=== PATIENT | female | born 2000 | race Caucasian/White ===

== ENCOUNTER 2018-04-14 14:44 | Emergency (ER) | payer MEDICAID, SELFPAY ==
[2018-04-14 14:45] VITALS: BP 132/87; PULSE 87; RESP 16; TEMP 36.6; O2SAT 98; BMI 24.4
--- NOTE | 2018-04-14 15:16 | ED.VISSUMM ---
- ER Visit Summary Date of Service: 04/14/18 Chief Complaint: Left middle finger laceration History of Present Illness: The patient is a 17 F presenting with laceration to her left middle finger. Patient was cutting a hose with a knife. She slipped and cut her left middle finger. This occurred just prior to arrival. Her tetanus is up-to-date. No other injuries. Physical Examination: Vitals are stable. Patient is afebrile. Alert no acute distress. HEENT exam is unremarkable. Lungs are clear and equal bilaterally. Heart is regular rate and rhythm. Extremities 1 cm lac distal left middle finger pad. Active full range of motion. Normal cap refill Skin is warm and dry. No focal neurologic deficit. Remainder of exam is unremarkable. Emergency Department Course and Treatment: Digital block was performed. Irrigated with saline. 3, 5-0 simple sutures were placed. Patient tolerated this well. Advised wound care instructions. Advised to follow up with primary care physician. Advised return to ED for worsening complaints. Disposition: Discharge home Impression: Left middle finger laceration, laceration repair This note was generated with [employer] dictation software. It may contain incorrect words, spelling, and punctuation that were not noted in review of the chart prior to signing ED Disposition - Plan for ED Patient: Chief Complaint: Laceration Instructions: ED Laceration All Referrals: Dustin Bryan MD [Primary Care Provider] -
--- NOTE | 2018-04-14 15:24 | ED.DEP ---
ED Disposition - Plan for ED Patient: Chief Complaint: Laceration Instructions: ED Laceration All Referrals: Dustin Bryan MD [Primary Care Provider] -
[2018-04-14 16:19] VITALS: RESP 18
--- OUTSIDE RECORDS SUMMARY | 2018-07-18 11:51 | XMS RPT_ITS ---
:2000 Author Organization OHIP Care Team Providers Name Role Phone EMMA PRASAD, DR. MENDOZA Attending Unavailable PARKER PRASAD, CHRISTOPHER Primary Care Unavailable Hossein Babin Attending Unavailable PROVIDER, UNKNOWN Referring Unavailable Bursley, Christopher Primary Care Unavailable PROVIDER, UNKNOWN Referring Unavailable Bursley, Christopher Primary Care Unavailable Enrique Whitaker Attending Unavailable Janie Astorga Attending Unavailable PROVIDER, UNKNOWN Referring Unavailable Bursley, Christopher Primary Care Unavailable PROVIDER, UNKNOWN Referring Unavailable Bursley, Christopher Primary Care Unavailable PROVIDER, UNKNOWN Attending Unavailable Hima Ramírez Attending Unavailable PROVIDER, UNKNOWN Referring Unavailable Bursley, Christopher Primary Care Unavailable PODWEN PALOMO (HEAT CURER) Attending Unavailable WEN VASQUEZ (SUSAN) Referring Unavailable PATRICA STEINBERG (SUSAN) Attending Unavailable JUSTIN SOLO Attending Unavailable JUSTIN SOLO Referring Unavailable Bursley, Dustin Primary Care Unavailable Latonya Zepeda Attending Unavailable JUSTIN SOLO Attending Unavailable JUSTIN SOLO Referring Unavailable JUSTIN SOLO Attending Unavailable JUSTIN SOLO Referring Unavailable BURSLEY, CHRISTOPHER Primary Care Unavailable PROBLEMS PROBLEMS DATE TYPE CONDITION / CODE ATTENDING STATUS SOURCE 03/07/2018 Admitting Chest pain, [place], Hima [facility] Diagnosis unspecified / System R07.9(ICD-10) Repository 03/07/2018 Admitting Nicotine [place], Hima [facility] Diagnosis dependence, System cigarettes, Repository uncomplicated / F17.210(ICD-10) 03/07/2018 Admitting Acute bronchitis, Darrell, Hima [facility] Diagnosis unspecified / System J20.9(ICD-10) Repository 03/07/2018 Admitting Cardiac arrhythmia, [place], [facility] Diagnosis unspecified / System I49.9(ICD-10) Repository 03/07/2018 Admitting Migraine, unsp, not [place], Hima [facility] Diagnosis intractable, System without status Repository migrainosus / G43.909(ICD-10) 03/07/2018 Admitting Palpitations / Darrell, Hima [facility] Diagnosis R00.2(ICD-10) System Repository 03/07/2018 Admitting Shortness of breath [place], [facility] Diagnosis / R06.02(ICD-10) System Repository 03/07/2018 Admitting Cough / R05(ICD-10) Darrell Hima [facility] Diagnosis System Repository 12/09/2017 Admitting Abnormal uterine Unknown [facility] Diagnosis and vaginal System bleeding, Repository unspecified / N93.9(ICD-10) 10/04/2017 Active Encounter for Active [place] screening for Clinic Main infections with a [place] predominantly Repository sexual mode of transmission / Z11.3(ICD-10) 07/10/2017 Admitting Epigastric pain / [place], Hossein [facility] Diagnosis R10.13(ICD-10) System Repository 07/10/2017 Admitting Dehydration / Jeromin, Hossein Active [facility] Diagnosis E86.0(ICD-10) System Repository 07/10/2017 Admitting Bacteriuria / Jeromin, Hossein Active [facility] Diagnosis R82.71(ICD-10) System Repository 07/10/2017 Admitting Generalized Jeromin, Hossein [facility] Diagnosis abdominal pain / System R10.84(ICD-10) Repository PROCEDURES PROCEDURES No Procedure Records FoundRESULTS RESULTS EMERGENCY DEPARTMENT Observed: 04/14/2018 Status: F Source: [place] SUMMARY 3:45 PM [facility] [place] REPOSITORY [facility] Medical Records Department [address] [place] [address] Emergency Department Summary 04/14/18 1516 MR#: [id number] Acct: [id number] Name: RENEE GREENE Rep #: [id number] : 2000 17 From: Latonya Zepeda MD PCP: Dustin Bryan MD Status: PRE ER - ER Visit Summary Date of Service: 04/14/18 Chief Complaint: Left middle finger laceration History of Present Illness: The patient is a 17 F presenting with laceration to her left middle finger. Patient was cutting a hose with a knife. She slipped and cut her left middle finger. This occurred just prior to arrival. Her tetanus is up-to-date. No other injuries. Physical Examination: Vitals are stable. Patient is afebrile. Alert no acute distress. HEENT exam is unremarkable. Lungs are clear and equal bilaterally. Heart is regular rate and rhythm. Extremities 1 cm lac distal left middle finger pad. Active full range of motion. Normal cap refill Skin is warm and dry. No focal neurologic deficit. Remainder of exam is unremarkable. Emergency Department Course and Treatment: Digital block was performed. Irrigated with saline. 3, 5-0 simple sutures were placed. Patient tolerated this well. Advised wound care instructions. Advised to follow up with primary care physician. Advised return to ED for worsening complaints. Disposition: Discharge home Impression: Left middle finger laceration, laceration repair This note was generated with [employer] dictation software. It may contain incorrect words, spelling, and punctuation that were not noted in review of the chart prior to signing ED Disposition - Plan for ED Patient: Chief Complaint: Laceration Instructions: ED Laceration All Referrals: Dustin Bryan MD [Primary Care Provider] - What to do if you have Problems For any increased pain, shortness of breath, bleeding, nausea or vomiting, chest pain, or any unexpected problems, contact your Primary Care Provider. Call [facility] ([phone]) or report to the closest Emergency Room. Call 911 if necessary. 04/14/18 2173 <Electronically signed by Latonya Zepeda MD> Date Latonya Zepeda MD Cosigner Signature (If Indicated): Date CC: Dustin Bryan MD DISCHARGE INSTRUCTION Observed: 04/14/2018 Status: F Source: [place] 3:24 PM [facility] [place] REPOSITORY [facility] Medical Records Department [address] [place] [address] Discharge Instruction 04/14/18 1524 MR#: [id number] Acct: [id number] Name: RENEE GREENE Rep #: [id number] : 2000 17 From: Latonya Zepeda MD PCP: Dustin Bryan MD Status: PRE ER ED Disposition - Plan for ED Patient: Chief Complaint: Laceration Instructions: ED Laceration All Referrals: Dustin Bryan MD [Primary Care Provider] - What to do if you have Problems For any increased pain, shortness of breath, bleeding, nausea or vomiting, chest pain, or any unexpected problems, contact your Primary Care Provider. Call [facility] ([phone]) or report to the closest Emergency Room. Call 911 if necessary. 04/14/18 1524 <Electronically signed by Latonya Zepeda MD> Date Latonya Zepeda MD Cosigner Signature (If Indicated): Date CC: Dustin Bryan MD PROGRESS Observed: 03/15/2018 Status: COMPLETED Source: [place] 2:01 PM [facility] [place] REPOSITORY O ID: [id number] Author: Justin Solo Service: (none) Author Type: Physician Type: Progress Notes Filed: 03/15/2018 6:17 PM Note Text: PERTINENT CARDIAC HISTORY Palpitations Chest pain ADHERENCE TO GUIDELINES MARYSOL-I or ARB for HF with prior LVEF<40 (NQF 0081) - N/A ASA or Plavix for ASHD (NQF 0067) - N/A Beta joe for ASHD with prior ME or prior LVEF<40 (NQF 0070) - N/A Beta joe for HF with prior LVEF<40 (NQF 0083) - N/A MARYSOL-I or ARB for ASHD with DM or prior LVEF<40 (NQF 0066) - N/A Statin therapy for ASHD or FHL or DM - N/A BMI documented and plan if >25 (NQF 0421) - lifestyle recommendation form Tobacco use screening and referral (NQF 0028) - lifestyle recommendation form Recommendation for whole food, plant based diet - lifestyle recommendation form CLINICAL IMPRESSION/PLAN: Renee Greene has mild postural hypotension and has potential for POTS. She has a problem with intermittent depression and we will avoid beta blockers. When she took beta joe in the past, she describes feeling worse. I suggested that we try low-dose verapamil at 120 milligrams to see if it helps with her symptoms. There is no evidence of ischemia. However, her chest pain may be related to her arrhythmia. I am concerned about the nonsustained ventricular arrhythmia she had. Further monitoring including implantation of loop recorder may be helpful in sorting this out. I've asked her to call me in 2 weeks with an update. I will see her in 6 months or as needed. Written and verbal health teaching given to patient, patient verbalizes understanding and agrees with treatment plan. DIAGNOSIS FOR VISIT: Palpitations Chest pain HISTORY OF PRESENT ILLNESS Renee Greene returns for follow-up of her palpitation and chest pain syndrome. Since her last visit with me, she was evaluated by a general wheat shipper and EP at [facility]. No further recommendations were made or significant findings were uncovered. She was reassured. Despite reassurance, she continues to have some chest discomfort which may or may not be associated with a sensation of palpitations. She reports that she has been drinking a lot of water to keep herself well hydrated and avoid postural hypotension. She's had intermittent lightheadedness, again variably associated with palpitations. She's had no cari syncope. She's had trace edema. She denies orthopnea. Her chest discomfort can last hours at a time. It is occasionally related to palpitations. It is not usually exertional. She's not been engaged in any regular exercise. She denies TIAs, amaurosis and claudication. ALLERGIES: ALLERGIES No Known Allergies CURRENT OUTPATIENT MEDICATIONS: mirtazapine (REMERON) 15 mg tablet Take 15 mg by mouth daily at bedtime. PHYSICAL EXAMINATION: VITAL SIGNS: BP 102/68 Pulse 76 Ht 5' 3.75 (1.62m) Wt 142 lb 1.6 oz (64.5kg) BMI 24.59 kg/(m2). Chest: Clear to auscultation. Trachea is midline. Air entry is equal. Cardiac: Regular rhythm. S1 and S2 are normal. PMI is nondisplaced. There are no murmurs, rubs or gallops. Carotids are brisk without bruits. JVP is less than 10 cm. Abdomen: Soft and nontender. There are no pulsatile masses or bruits. No liver enlargement. Bowel sounds are active. Extremities: No edema. Pulses are intact and symmetrical. Previous monitoring and stress testing was all reviewed with her. There are no significant findings on any of her testing other than occasional atrial and ventricular rhythm with 1 nonsustained run of wide-complex tach, likely ventricular. Electronically Signed: Justin Solo MD March 15, 2018 2:01 PM CC: Christian Bryan MD CNOV Observed: 03/15/2018 Status: COMPLETED Source: [place] 1:15 PM [facility] REPOSITORY Office Visit (CAWSTR) RENEE GREENE ([id number]) 2000 F [facility] Date Time Provider Department 03/15/18 1:15 PM JUSTIN SOLOWSTR During your visit today, we recorded the following information about you: Pulse Blood pressure Weight Height 76/minute 102/68 64.5 kg 1.619 m Justin Solo MD 03/15/2018 6:17 PM Signed PERTINENT CARDIAC HISTORY Palpitations Chest pain ADHERENCE TO GUIDELINES MARYSOL-I or ARB for HF with prior LVEF<40 (NQF 0081) - N/A ASA or Plavix for ASHD (NQF 0067) - N/A Beta joe for ASHD with prior ME or prior LVEF<40 (NQF 0070) - N/A Beta joe for HF with prior LVEF<40 (NQF 0083) - N/A MARYSOL-I or ARB for ASHD with DM or prior LVEF<40 (NQF 0066) - N/A Statin therapy for ASHD or FHL or DM - N/A BMI documented and plan if >25 (NQF 0421) - lifestyle recommendation form Tobacco use screening and referral (NQF 0028) - lifestyle recommendation form Recommendation for whole food, plant based diet - lifestyle recommendation form CLINICAL IMPRESSION/PLAN: Renee Greene has mild postural hypotension and has potential for POTS. She has a problem with intermittent depression and we will avoid beta blockers. When she took beta joe in the past, she describes feeling worse. I suggested that we try low-dose verapamil at 120 milligrams to see if it helps with her symptoms. There is no evidence of ischemia. However, her chest pain may be related to her arrhythmia. I am concerned about the nonsustained ventricular arrhythmia she had. Further monitoring including implantation of loop recorder may be helpful in sorting this out. I've asked her to call me in 2 weeks with an update. I will see her in 6 months or as needed. Written and verbal health teaching given to patient, patient verbalizes understanding and agrees with treatment plan. DIAGNOSIS FOR VISIT: Palpitations Chest pain HISTORY OF PRESENT ILLNESS Renee Greene returns for follow-up of her palpitation and chest pain syndrome. Since her last visit with me, she was evaluated by a general wheat shipper and EP at [facility]. No further recommendations were made or significant findings were uncovered. She was reassured. Despite reassurance, she continues to have some chest discomfort which may or may not be associated with a sensation of palpitations. She reports that she has been drinking a lot of water to keep herself well hydrated and avoid postural hypotension. She's had intermittent lightheadedness, again variably associated with palpitations. She's had no cari syncope. She's had trace edema. She denies orthopnea. Her chest discomfort can last hours at a time. It is occasionally related to palpitations. It is not usually exertional. She's not been engaged in any regular exercise. She denies TIAs, amaurosis and claudication. ALLERGIES: ALLERGIES No Known Allergies CURRENT OUTPATIENT MEDICATIONS: mirtazapine (REMERON) 15 mg tablet Take 15 mg by mouth daily at bedtime. PHYSICAL EXAMINATION: VITAL SIGNS: BP 102/68 Pulse 76 Ht 5' 3.75 (1.62m) Wt 142 lb 1.6 oz (64.5kg) BMI 24.59 kg/(m2). Chest: Clear to auscultation. Trachea is midline. Air entry is equal. Cardiac: Regular rhythm. S1 and S2 are normal. PMI is nondisplaced. There are no murmurs, rubs or gallops. Carotids are brisk without bruits. JVP is less than 10 cm. Abdomen: Soft and nontender. There are no pulsatile masses or bruits. No liver enlargement. Bowel sounds are active. Extremities: No edema. Pulses are intact and symmetrical. Previous monitoring and stress testing was all reviewed with her. There are no significant findings on any of her testing other than occasional atrial and ventricular rhythm with 1 nonsustained run of wide-complex tach, likely ventricular. Electronically Signed: Justin Solo MD March 15, 2018 2:01 PM CC: MD Justin Luque MD 03/15/2018 2:01 PM Signed LIFESTYLE CHANGE A healthy lifestyle is the most important component of your overall treatment plan. Please give serious thought to the following areas and commit to making care home changes. EAT A WHOLE FOOD, PLANT BASED DIET The nutrition your body gets is more important than the medicine you take. What matters most is the overall way you eat. We encourage you to minimize the use of animal products (which include dairy and all meats except fatty fish) and use whole, unprocessed plant foods to provide your protein, vitamins and other nutrients. We have a lot of information to share with you on this topic. This is not a diet. It is a way of life that you will keep with you. EXERCISE REGULARLY It is not important to spend hours in the gym, lifting weights and perspiring heavily. A total of 2-3 hours per week of aerobic (causing you to be moderately short of breath) exercise is sufficient to improve your health. Talk to us before you begin a new exercise program, if you have heart disease or experience shortness of breath or chest pain. REDUCE STRESS Chronic emotional and physical stress leads to disease. Ways of reducing stress include meditation, visualization, prayer, yoga and other forms of relaxation therapy. Consistency is the ortega. Find a technique that works for you and do it every day. CULTIVATE RELATIONSHIPS Loneliness and isolation have a major negative impact on health. Seek out others who can love, care for and nurture you. Avoid hurtful relationships. MAINTAIN IDEAL BODY WEIGHT The best way to do this is to do all the things above. Our bodies naturally find the right weight if we keep moving and feed ourselves the right food. If your BMI is greater than 25, we strongly recommend a referral to a weight management program. Please speak to us or your family physician about available programs. AVOID NICOTINE IN ALL FORMS This includes all tobacco products, whether chewed, smoked, vaped, or rubbed on the skin. Smoking cessation programs, which can make use of tobacco substitutes, medications to suppress cravings and behavior management, are available. Please contact your family physician about programs in your area. Referring Provider: JUSTIN SOLO [[id number]] Allergies As of Date: 03/15/2018 (No Known Allergies) Date Reviewed: 03/15/2018 Reviewed by: Monae Negrete MA - Fully Assessed Reason for Visit: Established Patient [175] Primary Visit Diagnosis:Chest pain, unspecified type [R07.9] Other Visit Diagnosis:Palpitations [R00.2] Order(s):verapamil ER (VERELAN) 120 mg 24 hr capsuleTake 1 capsule by mouth once daily.Disp: 30 capsuleRfl: 6 Prescriptions as of 03/15/2018 Sig: VERAPAMIL ER 120 MG 24 HR CAP* Take 1 capsule by mouth once * MIRTAZAPINE 15 MG TABLET Take 15 mg by mouth daily at * Problem List As Of Date 03/15/2018 Noted Resolved High risk teen [O09.899] INVALID FOR* Dysthymia [F34.1] INVALID FOR* History of congenital heart defect [Z87.74] INVALID FOR* More... Supervision of high risk due to socia*INVALID FOR* More... Uterine size-date discrepancy [O26.849] INVALID FOR* More... Other instructions from your clinician: LIFESTYLE CHANGE A healthy lifestyle is the most important component of your overall treatment plan. Please give serious thought to the following areas and commit to making care home changes. EAT A WHOLE FOOD, PLANT BASED DIET The nutrition your body gets is more important than the medicine you take. What matters most is the overall way you eat. We encourage you to minimize the use of animal products (which include dairy and all meats except fatty fish) and use whole, unprocessed plant foods to provide your protein, vitamins and other nutrients. We have a lot of information to share with you on this topic. This is not a diet. It is a way of life that you will keep with you. EXERCISE REGULARLY It is not important to spend hours in the gym, lifting weights and perspiring heavily. A total of 2-3 hours per week of aerobic (causing you to be moderately short of breath) exercise is sufficient to improve your health. Talk to us before you begin a new exercise program, if you have heart disease or experience shortness of breath or chest pain. REDUCE STRESS Chronic emotional and physical stress leads to disease. Ways of reducing stress include meditation, visualization, prayer, yoga and other forms of relaxation therapy. Consistency is the ortega. Find a technique that works for you and do it every day. CULTIVATE RELATIONSHIPS Loneliness and isolation have a major negative impact on health. Seek out others who can love, care for and nurture you. Avoid hurtful relationships. MAINTAIN IDEAL BODY WEIGHT The best way to do this is to do all the things above. Our bodies naturally find the right weight if we keep moving and feed ourselves the right food. If your BMI is greater than 25, we strongly recommend a referral to a weight management program. Please speak to us or your family physician about available programs. AVOID NICOTINE IN ALL FORMS This includes all tobacco products, whether chewed, smoked, vaped, or rubbed on the skin. Smoking cessation programs, which can make use of tobacco substitutes, medications to suppress cravings and behavior management, are available. Please contact your family physician about programs in your area. Prescriptions ordered this encounter Disp Refills Start End VERAPAMIL ER 120 MG 24 HR CAPSULE,EX* 30 c* 6 03/15/2018 Route: ORAL Sig: Take 1 capsule by mouth once daily. Letter Text Renee Greene March 15, [address] [facility] Sonam Koenig [place], [place] [address] 03/15/2018 CC# [id number] Renee Greene [address] [facility] [address] To whom it may concern: Please excuse Renee Greene from work today as she was seen in our office. Thank you. Sincerely, Cardiology Encounter Status:Closed by JUSTIN SOLO MD on 03/15/18 CNCO Observed: 03/15/2018 Status: COMPLETED Source: [place] 12:00 AM [facility] REPOSITORY Letter Text Renee Greene March 15, 2018 [place] [address] [place] [place] [address] 03/15/2018 [facility]# [id number] Renee Greene [address] [facility] [address] Dear Ms. Greene: Please excuse Renee Greene from work today as she was seen in our office. Sincerely, Cardiology CR CHEST PA/LAT Observed: 03/07/2018 Status: F Source: [place] 1:33 AM SYSTEM REPOSITORY Patient Name: RENEE GREENE Diagnostic Radiology Exam Date/Time 03/07/2018 01:29:18 EST Exam CR Chest PA/LAT Ordering Physician HIMA WHITE Accession Number [id number] CPT4 Codes 89406 () Reason For Exam cough Report CHEST X-RAY PA/LATERAL CLINICAL INDICATION: Cough. Chest pain. Frontal and lateral plain films of the chest were obtained. COMPARISON: None FINDINGS: The cardiac silhouette is within normal limits. No focal consolidation is seen within the lungs. No pleural effusion or pneumothorax is identified. The visualized bony structures of the chest are unremarkable . IMPRESSION: No acute cardiopulmonary disease. Report Dictated on Workstation: [id number] Final Dictating Physician: ADA IRELAND DO, I Signed Date and Time: 03/07/2018 1:33 am Signed by: ADA IRELAND DO, I Transcribed Date and Time: 03/07/2018 1:34 HCG,URINE QUAL Collected: 12/09/2017 Status: F Source: [place] 11:13 PM SYSTEM REPOSITORY TYPE CODE TESTS RESULT OUT OF REFERENCE UNITS RANGE LAB HCGUR Negative NA Negative HCG,Urine Qual Result Comment: is the most common reason for HCG in urine, although choriocarcinoma, hydatidiform mole, and certain nontropho- blastic malignancies also result in detectable urinary HCG levels. Sensitivity = 20mIU/mL. Performed By: #### HCGWINTER, UAMAC, UAMIC #### [employer] [address] [place] [id number] URINALYSIS,MACRO Collected: 12/09/2017 Status: F Source: [facility] [employer] 11:13 PM SYSTEM REPOSITORY TYPE CODE TESTS RESULT OUT OF REFERENCE UNITS RANGE LAB APPUR Clear NA Appearance CLOUDY LAB COLUR Lt. Yellow NA Color DK YELLOW LAB USG 1.005-1.030 NA Specific High [place],Urine 1.033 LAB UPH 5.0-8.0 NA pH,Urine Normal 5.5 LAB ULUK Negative NA Leukocytes TRACE LAB UNIT Negative NA Nitrites NEG LAB UPRO Negative mg/dL Total Protein,Urine NEG LAB UGLU Negative mg/dL Glucose,Urine NEG LAB UKET Negative mg/dL Ketone,Urine NEG LAB UURO 0-1 mg/dL Urobilinogen 1.0 LAB UBIL Negative NA Bilirubin,Ur POS LAB UBLD Negative {RBC}/uL Occult Blood,Ur 3 + Performed By: #### HCGWINTER, UAMAC, UAMIC #### [employer] [address] [place] [address] URINALYSIS,MICROSCOPIC Collected: Status: F Source: [facility] 12/09/2017 11:13 PM HEALTH SYSTEM REPOSITORY TYPE CODE TESTS RESULT OUT OF REFERENCE UNITS RANGE LAB WBCU 0-5 /[HPF] 6 WBC,Urine - 10 LAB RBCU 0-2 /[HPF] 6 RBC,Urine - 10 LAB EPIU 3-5 /[HPF] 1 Epithelial Cells + LAB RUDDY Negative NA Bacteria Few (1-5) LAB MUC Negative NA Mucous Threads Moderate LAB HYL 0-1 /[LPF] Cast, Hyaline Negative Performed By: #### HCGWINTER, UAMAC, UAMIC #### [employer] [address] [place] [address] CNOV Observed: 11/20/2017 Status: COMPLETED Source: [place] 9:15 AM [facility] REPOSITORY Office Visit (WOOB) RENEE GREENE ([id number]) 2000 F [place] Date Time Provider Department 11/20/17 9:15 AM PATRICA STEINBERG (SUSAN) WOOB During your visit today, we recorded the following information about you: Blood pressure Weight Last Period 100/64 68 kg 11/05/17 Patrica Steinberg APRN.CNP 11/20/2017 9:17 AM Signed Second Helper offered: Patient declines. Renee Greene is a 17 year old female who presents for problem visit cramping and dyspareunia for several month(s). HPI: pt states that she has had an increase in cramping in her abdomen and low back along with painful intercourse regardless of positioning. Cramping during her menses has become more severe over the past few months. Menses are regular lasting 5-6 days not any heavier. Not using any contraception at this time would like to get . Denies any recent fever, chills, or vaginal discharge/odor. PAST MEDICAL HISTORY Diagnosis Date - Atypical chest pain - Depression Possible Bipolar/ at [facility] 08/2014 - Heart palpitations PAST SURGICAL HISTORY Procedure Laterality Date - NONE FAMILY HISTORY Problem Relation Age of Onset - Cancer Paternal Grandfather Skin - Stroke Brother - polycystic kidney disease [OTHER] Brother maternal side Social History Marital status: Single Spouse name: Years of education: Number of children: 0 Occupational History Occupation Employer Comment Student [employer] Social History Main Topics Smoking status: Current Every Day Smoker Packs/day: 0.50 Years: 0.00 Types: Cigarettes Last attempt to quit: 12/30/2016 Smokeless tobacco: Never Used Alcohol use: No Drug use: No Sexual activity: Yes Partners with: Male Current Outpatient Prescriptions: mirtazapine (REMERON) 15 mg tablet Take 15 mg by mouth daily at bedtime. No current facility-administered medications for this visit. Allergies As of Date: 11/20/2017 (No Known Allergies) Fully Assessed 11/20/2017 REVIEW OF SYSTEMS Abdomen: No bloating, early satiety, indigestion, or increased flatulence. No abdominal pain, nausea, vomiting, diarrhea, or constipation. Bladder: No dysuria, gross hematuria, urinary frequency, urinary urgency, or incontinence. Expanded ROS: N/A Allergies and current medication updated:Yes EXAM: There were no vitals taken for this visit. GENERAL: pleasant, female in no apparent distress HEENT: Normocephalic, atraumatic, mucus membranes moist and no lesions CHEST: Normal inspiratory effort ABDOMEN: soft, non-tender and no masses PELVIC: external genitalia normal, normal Bartholin's glands, urethra, Allerton's glands, no vulvar lesions, no cervical lesions, good vaginal support, physiologic discharge present, normal appearing perineal body and perianal region, well estrogenized, transformation zone bright red BIMANUAL: uterus normal size, shape and consistency, no adnexal masses, non-tender and no cervical motion tenderness NEURO: alert and oriented x3,exam grossly non-focal ASSESSMENT AND PLAN: Pelvic pain Dyspareunia BV, yeast, trich, GC/chlamydia cultures collected Pelvic ultrasound ordered Will call with results Patrica Steinberg APRN.SUSAN Referring Provider: SELF [[id number]] Allergies As of Date: 11/20/2017 (No Known Allergies) Date Reviewed: 11/20/2017 Reviewed by: Patrica Lincoln) Maryan - Fully Assessed Reason for Visit: Pelvic Pain [282] Primary Visit Diagnosis:Pelvic pain in female [R10.2] Other Visit Diagnosis:Screen for sexually transmitted diseases [Z11.3] Order(s):GC/CHLAMYDIA DNA DET [SQGCCAMP] Order #: [id number] TRICHOMONAS PREP [SQTRICHO] Order #: [id number] PELVIC US WHI [[id number]] Order #: [id number]: 1 BACT/LILY VAG GRAM STAIN [SQBVCNSM] Order #: [id number] FUTURE Prescriptions as of 11/20/2017 Sig: MIRTAZAPINE 15 MG TABLET Take 15 mg by mouth daily at * Problem List As Of Date 11/20/2017 Noted Resolved High risk teen [O09.899] INVALID FOR* Dysthymia [F34.1] INVALID FOR* History of congenital heart defect [Z87.74] INVALID FOR* More... Supervision of high risk due to socia*INVALID FOR* More... Uterine size-date discrepancy [O26.849] INVALID FOR* More... Encounter Status:Closed by PATRICA STEINBERG on 11/20/17 Observed: 11/20/2017 Status: F Source: [place] BACT/CAND VAG GRM ST 9:00 AM [facility] REPOSITORY Sp. Request/Comment: - Swab Smear Result - BACTERIAL VAGINOSIS RESULT: Stain results consistent with normal vaginal angeline. Few Polymorphonuclear leukocytes Few Mononuclear cells Few Epithelial cells YEAST SCREEN RESULT No Yeast observed Performed By: #### BVCNSM #### [facility] [address], [place] [address] Observed: 11/20/2017 Status: F Source: [place] TRICHOMONAS PREP 9:00 AM [facility] REPOSITORY Sp. Request/Comment: - Swab Smear Result - Negative for Trichomonas vaginalis antigen This test was developed and its performance characteristics determined by [facility] Path[facility] Laboratory Medicine [place] ([facility] It has not been cleared or approved by the FDA. [facility] is regulated under CLIA as qualified to perform high-complexity testing. This test is used for clinical purposes. It should not be regarded as investigational or for research. Performed By: #### TRICHO #### [facility] [address] [place], [place] [address] PROGRESS Observed: 11/20/2017 Status: COMPLETED Source: [place] 8:51 AM [facility] REPOSITORY HNO ID: [id number] Author: Patrica Steinberg Service: (none) Author Type: Nurse Practitioner Type: Progress Notes Filed: 11/20/2017 9:17 AM Note Text: Second Helper offered: Patient declines. Renee Greene is a 17 year old female who presents for problem visit cramping and dyspareunia for several month(s). HPI: pt states that she has had an increase in cramping in her abdomen and low back along with painful intercourse regardless of positioning. Cramping during her menses has become more severe over the past few months. Menses are regular lasting 5-6 days not any heavier. Not using any contraception at this time would like to get . Denies any recent fever, chills, or vaginal discharge/odor. PAST MEDICAL HISTORY Diagnosis Date - Atypical chest pain - Depression Possible Bipolar/ at [facility] 08/2014 - Heart palpitations PAST SURGICAL HISTORY Procedure Laterality Date - NONE FAMILY HISTORY Problem Relation Age of Onset - Cancer Paternal Grandfather Skin - Stroke Brother - polycystic kidney disease [OTHER] Brother maternal side Social History Marital status: Single Spouse name: Years of education: Number of children: 0 Occupational History Occupation Employer Comment Student [employer] Social History Main Topics Smoking status: Current Every Day Smoker Packs/day: 0.50 Years: 0.00 Types: Cigarettes Last attempt to quit: 12/30/2016 Smokeless tobacco: Never Used Alcohol use: No Drug use: No Sexual activity: Yes Partners with: Male Current Outpatient Prescriptions: mirtazapine (REMERON) 15 mg tablet Take 15 mg by mouth daily at bedtime. No current facility-administered medications for this visit. Allergies As of Date: 11/20/2017 (No Known Allergies) Fully Assessed 11/20/2017 REVIEW OF SYSTEMS Abdomen: No bloating, early satiety, indigestion, or increased flatulence. No abdominal pain, nausea, vomiting, diarrhea, or constipation. Bladder: No dysuria, gross hematuria, urinary frequency, urinary urgency, or incontinence. Expanded ROS: N/A Allergies and current medication updated:Yes EXAM: There were no vitals taken for this visit. GENERAL: pleasant, female in no apparent distress HEENT: Normocephalic, atraumatic, mucus membranes moist and no lesions CHEST: Normal inspiratory effort ABDOMEN: soft, non-tender and no masses PELVIC: external genitalia normal, normal Bartholin's glands, urethra, Allerton's glands, no vulvar lesions, no cervical lesions, good vaginal support, physiologic discharge present, normal appearing perineal body and perianal region, well estrogenized, transformation zone bright red BIMANUAL: uterus normal size, shape and consistency, no adnexal masses, non-tender and no cervical motion tenderness NEURO: alert and oriented x3,exam grossly non-focal ASSESSMENT AND PLAN: Pelvic pain Dyspareunia BV, yeast, trich, GC/chlamydia cultures collected Pelvic ultrasound ordered Will call with results Patrica Steinberg APRN.SUSAN GC/CHLAMYDIA AMPLIF Collected: 11/20/2017 Status: F Source: [place] 5:23 AM [facility] RE[facility] TYPE CODE TESTS RESULT OUT OF REFERENCE UNITS RANGE LAB GCCTSR GC/Chlam Amp [facility] Source LAB GCAMPL GC Negative Amplification for Neisseria gonorrhoeae by amplification. LAB CLAMPL Chlamydia Negative Amplif for Chlamydia trachomatis by amplification. Performed By: #### GCCT #### [facility] [address] [place] [address] ROUTINE EKG TREADMILL Observed: 11/13/2017 Status: F Source: [place] STRESS TEST 10:15 AM SYSTEM REPOSITORY Patient Name: RENEE GREENE Ultrasound Exam Date/Time 11/14/2017 10:15:33 EDT Exam Routine EKG Treadmill Stress Test Ordering Physician MD BAKARI, JANIE Sin Accession Number [id number] Reason For Exam Chest pain Report EXERCISE ECG STRESS TEST Kevan Protocol PATIENT: Renee Greene STUDY DATE: 11/13/2017 : 2000 AGE: 17 HT/WT: 160 cm (63 68.6 kg (150.9 in) lb) GENDER: F BP: 108 / 70 LOCATION: [facility] PATIENT Outpatient [facility] STATUS: *ORDERING PHYSICIAN: * Janie Astorga MD *SUPERVISING PHYSICIAN: * Eddie Corbin MD *RN: Tonia Alicia *READING PHYSICIAN: Eddie Castellanos MD --- INDICATIONS: Chest pain. --- HISTORY: Chest Pain/ discomfort with exertion. Tobacco use current Tachycardia. Allergies: No known allergies. Patient is NPO per policy. No Cardiac medications. --- CONCLUSIONS SUMMARY: 1. Stress: 6 out of 10 stress-induced chest pain which resolved spontaneously. Functional capacity is average. 2. Baseline ECG: Normal sinus rhythm, borderline right IVCD. 3. Stress ECG conclusions: Sinus tachycardia, no arrhythmias or ST changes to suggest ischemia. --- STUDY DATA: Exercise ECG stress test. Procedure: Initial setup. A baseline ECG was recorded. Surface ECG leads and blood pressure measurements were monitored. Treadmill exercise testing was performed using the Kevan protocol. The patient exercised for 7 min 56 sec. Exercise was terminated due to leg pain. Exercise was terminated when the patient's Deb scale was 17. Study status: Routine. Patient status: Outpatient. Pre pain assessment is 0 out of 10. Pre pain location is midsternal. Post pain assessment is 0 out of 10. Location: Echo laboratory. Consent: The procedure was reviewed with the patient and the patient voices understanding. Study completion: The patient tolerated the procedure well. There were no complications. Discharge: Discharge instructions given The patient was discharged to homewhile ambulatory. --- FINDINGS BASELINE ECG: Normal sinus rhythm, borderline right IVCD. STRESS PROTOCOL: + +---+ + + !Stage !HR !BP (mmHg) !Symptoms ! + +---+ + + !Rest !71 !108/70 (83)!None ! + +---+ + + !Peak stress !173!138/72 (94)!6 out of 10 chest discomfort! + +---+ + + !Recovery !134!138/60 (86)!Subsiding ! + +---+ + + !Late recovery!84 !142/72 (95)!None ! + +---+ + + STRESS RESULTS: Peak heart rate during stress was 173 bpm (86% of maximal predicted heart rate). The maximal predicted heart rate was 201 bpm.The target heart rate was achieved. The heart rate response to stress was normal. The rate-pressure product for the peak heart rate and blood pressure was 73712 mm Hg/min. 6 out of 10 stress-induced chest pain which resolved spontaneously. Functional capacity is average. STRESS ECG: Sinus tachycardia, no arrhythmias or ST changes to suggest ischemia. Electronically signed by Eddie Corbin MD 11/13/2017 16:15 Final Dictated: 11/14/2017 2:06 pm Dictating Physician: MD CORBIN ALEXANDROS W. Signed Date and Time: 11/13/2017 4:15 pm Signed by: MD CORBIN ALEXANDROS W. PROGRESS Observed: 10/29/2017 Status: COMPLETED Source: [place] 9:27 PM [facility] REPOSITORY HNO ID: [id number] Author: Christian Person Service: (none) Author Type: (none) Type: Progress Notes Filed: 10/29/2017 9:27 PM Note Text: The patient did not show up for the scheduled sleep study. The patient will be contacted to reschedule the sleep study. Tech called patient, pt had family issues the day of testing, will reschedule. Christian Person RPSGT,RST,BA HISTORY PHYSICAL Observed: 10/18/2017 Status: COMPLETED Source: [place] 1:50 PM [facility] REPOSITORY HNO ID: [id number] Author: Lorie Gamboa MD Service: (none) Author Type: Physician Type: HANDP Filed: 10/29/2017 9:27 PM Note Text: October 18, 2017 The electronic medical record was reviewed to determine if the proposed sleep study conforms to the AASM Practice Parameters for the Indications for Polysomnography and Related Procedures, or if the sleep study is indicated for other reasons. Indications for study: LATONIA suspected without comorbid medical or sleep disorders Sleep study to be performed: Polysomnogram Special instructions: Pediatric protocol Laura Bah MD I have reviewed patient history and indication for the study. I agree with protocol above. Lorie Gamboa MD, MPH Pediatric and adult sleep medicine Staff, Pediatric Pulmonary [facility] PROGRESS Observed: 10/05/2017 Status: COMPLETED Source: [place] 3:37 PM [facility] REPOSITORY HNO ID: [id number] Author: Vince Philip Psr Service: (none) Author Type: (none) Type: Progress Notes Filed: 10/29/2017 9:27 PM Note Text: October 05, 2017 An order has been received for Polysomnogram (PSG) from Wen Vasquez APRN.[facility]AT [facility] Staff. Visit prep complete. Comments :No The sleep study is scheduled for 10/29. Insurance: [facility] / Plan: [facility] MEDICAID / Product Type: Medicaid / Vince Fallondaniella Psr GC/CHLAMYDIA AMP, UR Collected: 10/04/2017 Status: F Source: [place] 3:00 PM [facility] REPOSITORY TYPE CODE TESTS RESULT OUT OF REFERENCE UNITS RANGE LAB UGCAMP GC Negative Amplification, for Neisseria Ur gonorrhoeae by amplification. LAB UCLAMP Negative Chlamydia for Chlamydia Amplif, Ur trachomatis by amplification. Result Comment: For screening asymptomatic women, a vaginal swab specimen (APTIMA vaginal swab 389148) is optimal. Urine specimens have reduced sensitivity for Chlamydia trachomatis or Neisseria gonorrh oeae infection in female patients without symptoms. This test was developed and its performance characteristics determined by [facility] Pathology and Laboratory Medicine [place] ([facility]). It has not been cleared or approved by the FDA. [facility] is regulated under CLIA as qualified to perform high-complexity testing. This test is used for clinical purposes. It should not be regarded as investigational or for research. Performed By: #### UGCCT #### [facility] [address], [place] [address] PROGRESS Observed: 10/04/2017 Status: COMPLETED Source: [place] 1:10 PM [facility] REPOSITORY HNO ID: [id number] Author: Wen Lincoln) Podlogar Service: (none) Author Type: Nurse Practitioner Type: Progress Notes Filed: 10/05/2017 8:11 AM Note Text: WELL VISIT PEDIATRIC FEMALE 18+ YRS OLD SERVICE DATE: 10/04/2017 SERVICE TIME: 1330 Renee is a 16 year old female who presents today for well exam. SUBJECTIVE CONCERNS: Thinks she may have sleep apnea- grandfather diagnosed with central sleep apnea and father has as well. Positive for daytime drowsiness and snoring. Recently in [place] beginning of August of for suicidal ideations. Reports sister called the millinery teacher because sister got a text from patient that said she was thinking of hurting herself- patient reports message was taken out of context police were called and patient was sent [place] and was admitted for a couple of days. Had an appointment on September 01 with camacho shields and called and rescheduled however she lost card with appointment and needs to call and make another appointment. Also while she was in [place] she had an EKG that showed a slow heart rate she was to follow with [facility], cardiology group if Es on September 29 however reports she did no go because she was tired. has appointment rescheduled for October 25. Had previously seen Dr. Garrison and had a cardiac work up and is to follow with him in December. Denies dizziness, lightheadedness, SOB, dyspnea, chest pain and palpitations today. Today she is feeling better, reports the medicine they put her on at the hospital is helping. Denies SI or HI today. Lives with boyfriend, his mother, and her soon to be 2 year old. Feels safe in home and reports they are a good support system. 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 Carol Anderson MD Supervision of High Risk Due to Social Problems - 06/26/2015 PAST MEDICAL HISTORY Diagnosis Date - Atypical chest pain - Depression Possible Bipolar/ at [facility] 08/2014 - Heart palpitations PAST SURGICAL HISTORY Procedure Laterality Date - NONE Allergies: ALLERGIES No Known Allergies Medications: mirtazapine (REMERON) 15 mg tablet Take 15 mg by mouth daily at bedtime. Family History: FAMILY HISTORY Problem Relation Age of Onset - Cancer Paternal Grandfather Skin - Stroke Brother - polycystic kidney disease [OTHER] Brother maternal side Social History Narrative None on file Smoking Exposure: Do you spend a significant amount of time with anyone who smokes? Yes- patient smokes 1/2 to 1 pack a day -Who uses tobacco products? herself -Are you interesting in quitting? No -Do you have a smoke-free home rule in place? Yes -Do you have a smoke-free car rule in place? Yes- when child in car School: just graduated From highschool Physical Activity less than 1 hour of physical activity per day Types of Physical Activity likes to walk Work: Yes, 15-30 hours per week, working at [employer] Screen Time totaling less than 2 hours of screen time per day. Safety: seat belts, bike helmets, smoke detectors, internet, firearms, street safety, water safety, sunscreen and driving 86 %ile (Z= 1.09) based on [facility] 2-20 Years BMI-for-age data using vitals from 10/04/2017. normal weight (BMI 5th% - 84th%) Diet: -Eats 3 meals per day and 1-2 snacks per day Vitamin: none Elimination: no concerns, normal size and consistency Dental: dental care not current Sleep: -television in bedroom -snoring without observed apneas Cell Phone: yes TB Screening: no risks Gynecological history: Menarche: 8 years of age. LMP: 09/12/2017 Cycles are regular Dysmenorrhea: mild Pregnancies: one and Term- had boy in 2016- vaginal delivery High risk behaviors: none, suicide attempts and involvement with legal system - at 13 was unruly and had to go to group home center Tobacco use: Yes, 1/2-1ppd Alcohol use: No Drug use: No Sexual History: Dating: Yes Attraction: male Sexually Active: Yes Number of lifetime partners: 3 Partners: male Contraception: none- discussed different forms of contraception- is not trying to avoid at this time- encouraged if changing partners she should use condoms for protection of STD's- asked her to speak with psychiatry regarding medication d/t she is not avoiding and medications would need to be adjusted if she is going to become GC/C screen within the past year: No GC/C screen since most recent partner? No Change in normal vaginal discharge: No History of sexual abuse: No PHQ-A score is which is above cut off score of 11. Little or no interest or pleasure in doing things 2 More than half the days Feeling down, depressed, or hopeless 0 Not at all Trouble falling or staying asleep, or sleeping too much 3 Nearly every day Feeling tired or having little energy 3 Nearly every day Poor appetite or overeating 3 Nearly every day Feeling bad about yourself- or that you are a failure or having let yourself or your family down 2 More than half the days Trouble concentrating on things, such as reading the newpaper or watching television 0 Not at all Moving or speaking so slowly that other people could have noticed? Or the opposite- being so fidgety or restless that you have been moving around a lot more than usual 1 Several days Thoughts that you would be better off or of hurting yourself in some way 1 Several days PHQ9P Score 13 Body image: satisfactory REVIEW OF SYSTEMS GENERAL: No fevers EYES: No vision concerns ENT: No hearing concerns RESPIRATORY: SEE HPI CARDIOVASCULAR: See HPI SKIN: Negative for lesions, rash, and itching ENDOCRINE: No growth concerns OBJECTIVE Physical Exam: BP 120/64 (BP Site: Left Arm, BP Position: Sitting, BP Cuff Size: Regular Adult) Pulse 60 Resp 18 Ht 161.3 cm (5' 3.5) Wt 68.5 kg (151 lb 1.9 oz) BMI 26.35 kg/m? Blood pressure percentiles are 80.3 % systolic and 42.3 % diastolic based on the November 2016 AAP Clinical Practice Guideline. This reading is in the elevated blood pressure range (BP >= 120/80). 86 %ile (Z= 1.09) based on CDC 2-20 Years BMI-for-age data using vitals from 10/04/2017. Last BMI: Wt: 67.5 kg (148 lb 12.8 oz) (82 %, Z= 0.91)* BMI: 26.36 kg/(m2) Last 4 Encounter Wt Readings: Date: Wt: 10/04/2017 68.5 kg (151 lb 1.9 oz) (83 %, Z= 0.96)* 07/20/2017 67.5 kg (148 lb 12.8 oz) (82 %, Z= 0.91)* 06/01/2017 64.4 kg (142 lb) (76 %, Z= 0.70)* 05/22/2017 65.1 kg (143 lb 9.6 oz) (78 %, Z= 0.76)* Last 4 Encounter Ht Readings: Date: Ht: 10/04/2017 161.3 cm (5' 3.5) (38 %, Z= -0.30)* 07/20/2017 160 cm (5' 3) (31 %, Z= -0.49)* 05/22/2017 160 cm (5' 3) (31 %, Z= -0.49)* 04/20/2017 160 cm (5' 3) (31 %, Z= -0.49)* General: Well developed, No acute distress Head: normocephalic Eyes: conjunctivae/corneas clear Ears: normal external ear and canal, tympanic membranes with normal landmarks Nose: no erythema or rhinorrhea Oropharynx: moist mucous membranes, no erythema or exudate Neck: Supple, no adenopathy; thyroid symmetric, normal size, no bruits Spine: Back symmetric, no curvature. Resp: lungs clear to auscultation Heart: RRR , Normal S1 and S2. , No murmurs Breast: No nodules or lesions Abdomen: Soft, nontender, nondistended, no palpable organomegaly or masses, normal bowel sounds Extremities: No clubbing, cyanosis, or edema., No deformities or skin discoloration. Good capillary refill. Full range of motion. Neuro: No focal deficits or abnormal findings present Skin: no rashes, lesions or jaundice ASSESSMENT AND PLAN: No diagnosis found. 86 %ile (Z= 1.09) based on [facility] 2-20 Years BMI-for-age data using vitals from 10/04/2017. Renee is normal weight (BMI 5th% - 84th%): -To maintain a healthy weight, discussed limiting screen time to less than 2 hours per day, physical activity for at least one hour per day, 5 servings of fruits and vegetables per day, 3 meals per day, family meals ar home and no sugar containing beverages -Ounce of Prevention handout given Based on PHQ-A score and interview, presentation is consistent with diagnosis of depression: Continue medication as prescribed in hospital- follow-up with Camacho Shields - Discussed diet and safety. - Dental care discussed. - Bright Futures handout given (See Patient Instructions). - Ounce of Prevention handout given (See Patient Instructions). - Parent/guardian declined immunization for HPV and TdaP and were counseled regarding risk. Patient declined immunization for DTaP and HPV and were counseled regarding risk. - Follow up in one year for routine physical. - patient declined Smoke free information at this time. ASSESSMENT/PLAN: 1. Routine physical examination - ICD9: V70.0, ICD10: Z00.00 (primary diagnosis) - check GC/Chlamydia - Follow up for annual exam in one year. 2. Fatigue, unspecified type - ICD9: 780.79, ICD10: R53.83 - consider d/t sleep apnea vs hypothyrodiism - POLYSOMNOGRAM (PSG)/HOME SLEEP APNEA TESTING (HSAT) - TSH BLD 3. Snoring - ICD9: 786.09, ICD10: R06.83 - consider sleep apnea - POLYSOMNOGRAM (PSG)/HOME SLEEP APNEA TESTING (HSAT) 4. Hypersomnia - ICD9: 780.54, ICD10: G47.10 - consider sleep apnea, hypothyroidism, or depression - plan as above 5. Screening for STD (sexually transmitted disease) - ICD9: V74.5, ICD10: Z11.3 - GC/CHLAMYDIA AMPLIF, URINE 6. Depression, unspecified depression type - ICD9: 311, ICD10: F32.9 - is to follow with camacho path - discussed the importance of counseling and keeping appointments with counselors - continue medications as they prescribed Wen Vasquez APRN.CNP SIGNATURE: Wen Vasquez APRN.CNP PATIENT NAME: Renee Greene DATE: October 04, 2017 TIME: 1:10 PM CNOV Observed: 10/04/2017 Status: COMPLETED Source: [place] 1:00 PM [facility] [place] REPOSITORY Office Visit (FAMPWS) RENEE GREENE ([id number]) [address] [facility] Date Time Provider Department 10/04/17 1:00 PM WEN VASQUEZ) FAMPWS During your visit today, we recorded the following information about you: Pulse Respiration Blood pressure Weight 60/minute 18/minute 120/64 68.5 kg Height 1.613 m Wen Vasquez APRN.CNP 10/05/2017 8:11 AM Signed WELL VISIT PEDIATRIC FEMALE 18+ YRS OLD SERVICE DATE: 10/04/2017 SERVICE TIME: 1330 Renee is a 16 year old female who presents today for well exam. SUBJECTIVE CONCERNS: Thinks she may have sleep apnea- grandfather diagnosed with central sleep apnea and father has as well. Positive for daytime drowsiness and snoring. Recently in [place] beginning of May of for suicidal ideations. Reports sister called the millinery teacher because sister got a text from patient that said she was thinking of hurting herself- patient reports message was taken out of context police were called and patient was sent [place] and was admitted for a couple of days. Had an appointment on September 01 with camacho shields and called and rescheduled however she lost card with appointment and needs to call and make another appointment. Also while she was in [place] she had an EKG that showed a slow heart rate she was to follow with [facility], cardiology group dony Suggs on September 29 however reports she did no go because she was tired. has appointment rescheduled for October 25. Had previously seen Dr. Garrison and had a cardiac work up and is to follow with him in December. Denies dizziness, lightheadedness, SOB, dyspnea, chest pain and palpitations today. Today she is feeling better, reports the medicine they put her on at the hospital is helping. Denies SI or HI today. Lives with boyfriend, his mother, and her soon to be 2 year old. Feels safe in home and reports they are a good support system. 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 Carol Anderson MD Supervision of High Risk Due to Social Problems - 06/26/2015 PAST MEDICAL HISTORY Diagnosis Date - Atypical chest pain - Depression Possible Bipolar/ at [facility] 08/2014 - Heart palpitations PAST SURGICAL HISTORY Procedure Laterality Date - NONE Allergies: ALLERGIES No Known Allergies Medications: mirtazapine (REMERON) 15 mg tablet Take 15 mg by mouth daily at bedtime. Family History: FAMILY HISTORY Problem Relation Age of Onset - Cancer Paternal Grandfather Skin - Stroke Brother - polycystic kidney disease [OTHER] Brother maternal side Social History Narrative None on file Smoking Exposure: Do you spend a significant amount of time with anyone who smokes? Yes- patient smokes 1/2 to 1 pack a day -Who uses tobacco products? herself -Are you interesting in quitting? No -Do you have a smoke-free home rule in place? Yes -Do you have a smoke-free car rule in place? Yes- when child in car School: just graduated From highschool Physical Activity less than 1 hour of physical activity per day Types of Physical Activity likes to walk Work: Yes, 15-30 hours per week, working at [employer] Screen Time totaling less than 2 hours of screen time per day. Safety: seat belts, bike helmets, smoke detectors, internet, firearms, street safety, water safety, sunscreen and driving 86 %ile (Z= 1.09) based on CDC 2-20 Years BMI-for-age data using vitals from 10/04/2017. normal weight (BMI 5th% - 84th%) Diet: -Eats 3 meals per day and 1-2 snacks per day Vitamin: none Elimination: no concerns, normal size and consistency Dental: dental care not current Sleep: -television in bedroom -snoring without observed apneas Cell Phone: yes TB Screening: no risks Gynecological history: Menarche: 8 years of age. LMP: 09/12/2017 Cycles are regular Dysmenorrhea: mild Pregnancies: one and Term- had boy in 2016- vaginal delivery High risk behaviors: none, suicide attempts and involvement with legal system - at 13 was unruly and had to go to group home center Tobacco use: Yes, 1/2-1ppd Alcohol use: No Drug use: No Sexual History: Dating: Yes Attraction: male Sexually Active: Yes Number of lifetime partners: 3 Partners: male Contraception: none- discussed different forms of contraception- is not trying to avoid at this time- encouraged if changing partners she should use condoms for protection of STD's- asked her to speak with psychiatry regarding medication d/t she is not avoiding and medications would need to be adjusted if she is going to become GC/C screen within the past year: No GC/C screen since most recent partner? No Change in normal vaginal discharge: No History of sexual abuse: No PHQ-A score is which is above cut off score of 11. Little or no interest or pleasure in doing things 2 More than half the days Feeling down, depressed, or hopeless 0 Not at all Trouble falling or staying asleep, or sleeping too much 3 Nearly every day Feeling tired or having little energy 3 Nearly every day Poor appetite or overeating 3 Nearly every day Feeling bad about yourself- or that you are a failure or having let yourself or your family down 2 More than half the days Trouble concentrating on things, such as reading the newpaper or watching television 0 Not at all Moving or speaking so slowly that other people could have noticed? Or the opposite- being so fidgety or restless that you have been moving around a lot more than usual 1 Several days Thoughts that you would be better off or of hurting yourself in some way 1 Several days PHQ9P Score 13 Body image: satisfactory REVIEW OF SYSTEMS GENERAL: No fevers EYES: No vision concerns ENT: No hearing concerns RESPIRATORY: SEE HPI CARDIOVASCULAR: See HPI SKIN: Negative for lesions, rash, and itching ENDOCRINE: No growth concerns OBJECTIVE Physical Exam: BP 120/64 (BP Site: Left Arm, BP Position: Sitting, BP Cuff Size: Regular Adult) Pulse 60 Resp 18 Ht 161.3 cm (5' 3.5) Wt 68.5 kg (151 lb 1.9 oz) BMI 26.35 kg/m? Blood pressure percentiles are 80.3 % systolic and 42.3 % diastolic based on the November 2016 AAP Clinical Practice Guideline. This reading is in the elevated blood pressure range (BP >= 120/80). 86 %ile (Z= 1.09) based on CDC 2-20 Years BMI-for-age data using vitals from 10/04/2017. Last BMI: Wt: 67.5 kg (148 lb 12.8 oz) (82 %, Z= 0.91)* BMI: 26.36 kg/(m2) Last 4 Encounter Wt Readings: Date: Wt: 10/04/2017 68.5 kg (151 lb 1.9 oz) (83 %, Z= 0.96)* 07/20/2017 67.5 kg (148 lb 12.8 oz) (82 %, Z= 0.91)* 06/01/2017 64.4 kg (142 lb) (76 %, Z= 0.70)* 05/22/2017 65.1 kg (143 lb 9.6 oz) (78 %, Z= 0.76)* Last 4 Encounter Ht Readings: Date: Ht: 10/04/2017 161.3 cm (5' 3.5) (38 %, Z= -0.30)* 07/20/2017 160 cm (5' 3) (31 %, Z= -0.49)* 05/22/2017 160 cm (5' 3) (31 %, Z= -0.49)* 04/20/2017 160 cm (5' 3) (31 %, Z= -0.49)* General: Well developed, No acute distress Head: normocephalic Eyes: conjunctivae/corneas clear Ears: normal external ear and canal, tympanic membranes with normal landmarks Nose: no erythema or rhinorrhea Oropharynx: moist mucous membranes, no erythema or exudate Neck: Supple, no adenopathy; thyroid symmetric, normal size, no bruits Spine: Back symmetric, no curvature. Resp: lungs clear to auscultation Heart: RRR , Normal S1 and S2. , No murmurs Breast: No nodules or lesions Abdomen: Soft, nontender, nondistended, no palpable organomegaly or masses, normal bowel sounds Extremities: No clubbing, cyanosis, or edema., No deformities or skin discoloration. Good capillary refill. Full range of motion. Neuro: No focal deficits or abnormal findings present Skin: no rashes, lesions or jaundice ASSESSMENT AND PLAN: No diagnosis found. 86 %ile (Z= 1.09) based on CDC 2-20 Years BMI-for-age data using vitals from 10/04/2017. Renee is normal weight (BMI 5th% - 84th%): -To maintain a healthy weight, discussed limiting screen time to less than 2 hours per day, physical activity for at least one hour per day, 5 servings of fruits and vegetables per day, 3 meals per day, family meals ar home and no sugar containing beverages -Ounce of Prevention handout given Based on PHQ-A score and interview, presentation is consistent with diagnosis of depression: Continue medication as prescribed in hospital- follow-up with Cam[facility] Shields - Discussed diet and safety. - Dental care discussed. - Bright Futures handout given (See Patient Instructions). - Ounce of Prevention handout given (See Patient Instructions). - Parent/guardian declined immunization for HPV and TdaP and were counseled regarding risk. Patient declined immunization for DTaP and HPV and were counseled regarding risk. - Follow up in one year for routine physical. - patient declined Smoke free information at this time. ASSESSMENT/PLAN: 1. Routine physical examination - ICD9: V70.0, ICD10: Z00.00 (primary diagnosis) - check GC/Chlamydia - Follow up for annual exam in one year. 2. Fatigue, unspecified type - ICD9: 780.79, ICD10: R53.83 - consider d/t sleep apnea vs hypothyrodiism - POLYSOMNOGRAM (PSG)/HOME SLEEP APNEA TESTING (HSAT) - TSH BLD 3. Snoring - ICD9: 786.09, ICD10: R06.83 - consider sleep apnea - POLYSOMNOGRAM (PSG)/HOME SLEEP APNEA TESTING (HSAT) 4. Hypersomnia - ICD9: 780.54, ICD10: G47.10 - consider sleep apnea, hypothyroidism, or depression - plan as above 5. Screening for STD (sexually transmitted disease) - ICD9: V74.5, ICD10: Z11.3 - GC/CHLAMYDIA AMPLIF, URINE 6. Depression, unspecified depression type - ICD9: 311, ICD10: F32.9 - is to follow with camacho shields - discussed the importance of counseling and keeping appointments with counselors - continue medications as they prescribed Wen Vasquez APRN.CNP SIGNATURE: Wen Vasquez APRN.CNP PATIENT NAME: Renee Greene DATE: October 04, 2017 TIME: 1:10 PM Wen Vasquez APRN.CNP 10/04/2017 1:10 PM Signed 14-18 years Fueling Your Thoughts ? Are you concerned with your child's eating habits or level of activity? ? Do you and your child eat vegetables every day? ? How many meals do you eat as a family each week? How many are from fast food, take out, etc? ? What beverages do you buy? ? How much time does your child watch TV, play on the computer, play video games, or text daily? ? What do you and your child do to stay active? Nutrition Tips By providing nutritious foods to your child, you help him or her improve strength, energy, attention span and the ability to keep up with friends. ? Breakfast - Eating a healthy breakfast every day is recommended. ? Lunch - Review school menus with your child and plan ahead; or pack a lunch with at least 4 out of the 5 food groups (calcium foods, fruits, vegetables, whole grains and lean protein). ? Snacks - Eat only when hungry. Stock up on [id number]-vk-[id number] vegetables, fruit, cheese, yogurt, milk, lean meats, whole grains, low sugar cereal or nuts. ? Dinner - Eat as many meals as possible as a family at the dinner table. Be sure to slow down, enjoy, and turn off screens. ? Eating Out - Keep portion sizes small or share meals (don't super size). Choose fruit or salad instead of fries, milk instead of soft drinks, baked or broiled instead of fried. ? Beverages - Think Your Drink! ? The best choices are water or milk. ? Limit sweetened beverages such as soft drinks, iced teas, energy drinks and caffeine-containing beverages. ? Regular intake of too much caffeine can lead to trouble sleeping, rapid heart rate, anxiety, poor attention span, headaches or shakiness. Your main job is to offer a variety of healthy foods (fruits, vegetables, milk, yogurt, cheese, whole grains, mere, poultry, fish and eggs). Parents ? Make sure you and your kids are active 60 minutes every day. Focus on FUN, including both organized and free play. ? Count time spent doing chores: car washing, walking the dog, dusting, sweeping, pulling weeds, raking leaves or shoveling snow. ? Involve the whole family in physical activity because you are role models! ? Be a good role model for your kids - be active and eat healthy foods. ? Screen time (computers, TV, phones, jayme systems, texting, etc.) should be limited to 2 hours or less daily (pre-plan how screen time will be used). ? Screens may be monitored easily if moved to a common area; keep them out of child's bedroom. ? Make sure your child is sleeping at least 10-11 hours per night. Keeping regular bed time is critical to good health and weight management. ? Caffeine can interfere with a healthy sleep routine. ? If you have concerns about your child's weight, physical activity or eating behaviors, ask your healthcare provider. Tips Regarding Teens ? Do not criticize your teenager about their size and shape. Focus on strengths rather than appearance. ? Remember that parents can still influence choices...as a parent you are still the role model! 5 to Go!TM Healthy Kids Inside AND Out 5 Eat FIVE fruits and veggies a day 4 Give and get FOUR compliments a day 3 Consume THREE calcium products a day 2 Limit media time to TWO hours a day 1 Get at least ONE hour of exercise a day 0 Consume ZERO sugar-sweetened drinks Go! Be healthy, inside and out! [email or web address]/5toGo Referring Provider: SELF [200] Allergies As of Date: 10/04/2017 (No Known Allergies) Date Reviewed: 10/04/2017 Reviewed by: Reba Dye LPN - Fully Assessed Reason for Visit: Physical [83] Primary Visit Diagnosis:Routine physical examination [Z00.00] Other Visit Diagnoses:Fatigue, unspecified type [R53.83] Snoring [R06.83] Hypersomnia [G47.10] Screening for STD (sexually transmitted disease) [Z11.3] Depression, unspecified depression type [F32.9] Order(s):POLYSOMNOGRAM (PSG)/HOME SLEEP APNEA TESTING (HSAT) [4687591] Order #: [id number] FUTURE GC/CHLAMYDIA AMPLIF, URINE [SQUGCCT] Order #: [id number] FUTURE TSH BLD [SQTSH] Order #: [id number] FUTURE Prescriptions as of 10/04/2017 Sig: MIRTAZAPINE 15 MG TABLET Take 15 mg by mouth daily at * Problem List As Of Date 10/04/2017 Noted Resolved High risk teen [O09.899] INVALID FOR* Dysthymia [F34.1] INVALID FOR* History of congenital heart defect [Z87.74] INVALID FOR* More... Supervision of high risk due to socia*INVALID FOR* More... Uterine size-date discrepancy [O26.849] INVALID FOR* More... Other instructions from your clinician: 14-18 years Fueling Your Thoughts ? Are you concerned with your child's eating habits or level of activity? ? Do you and your child eat vegetables every day? ? How many meals do you eat as a family each week? How many are from fast food, take out, etc? ? What beverages do you buy? ? How much time does your child watch TV, play on the computer, play video games, or text daily? ? What do you and your child do to stay active? Nutrition Tips By providing nutritious foods to your child, you help him or her improve strength, energy, attention span and the ability to keep up with friends. ? Breakfast - Eating a healthy breakfast every day is recommended. ? Lunch - Review school menus with your child and plan ahead; or pack a lunch with at least 4 out of the 5 food groups (calcium foods, fruits, vegetables, whole grains and lean protein). ? Snacks - Eat only when hungry. Stock up on aoail-ka-ezk vegetables, fruit, cheese, yogurt, milk, lean meats, whole grains, low sugar cereal or nuts. ? Dinner - Eat as many meals as possible as a family at the dinner table. Be sure to slow down, enjoy, and turn off screens. ? Eating Out - Keep portion sizes small or share meals (don't super size). Choose fruit or salad instead of fries, milk instead of soft drinks, baked or broiled instead of fried. ? Beverages - Think Your Drink! ? The best choices are water or milk. ? Limit sweetened beverages such as soft drinks, iced teas, energy drinks and caffeine-containing beverages. ? Regular intake of too much caffeine can lead to trouble sleeping, rapid heart rate, anxiety, poor attention span, headaches or shakiness. Your main job is to offer a variety of healthy foods (fruits, vegetables, milk, yogurt, cheese, whole grains, mere, poultry, fish and eggs). Parents ? Make sure you and your kids are active 60 minutes every day. Focus on FUN, including both organized and free play. ? Count time spent doing chores: car washing, walking the dog, dusting, sweeping, pulling weeds, raking leaves or shoveling snow. ? Involve the whole family in physical activity because you are role models! ? Be a good role model for your kids - be active and eat healthy foods. ? Screen time (computers, TV, phones, jayme systems, texting, etc.) should be limited to 2 hours or less daily (pre-plan how screen time will be used). ? Screens may be monitored easily if moved to a common area; keep them out of child's bedroom. ? Make sure your child is sleeping at least 10-11 hours per night. Keeping regular bed time is critical to good health and weight management. ? Caffeine can interfere with a healthy sleep routine. ? If you have concerns about your child's weight, physical activity or eating behaviors, ask your healthcare provider. Tips Regarding Teens ? Do not criticize your teenager about their size and shape. Focus on strengths rather than appearance. ? Remember that parents can still influence choices...as a parent you are still the role model! 5 to Go!TM Healthy Kids Inside AND Out 5 Eat FIVE fruits and veggies a day 4 Give and get FOUR compliments a day 3 Consume THREE calcium products a day 2 Limit media time to TWO hours a day 1 Get at least ONE hour of exercise a day 0 Consume ZERO sugar-sweetened drinks Go! Be healthy, inside and out! [email or web address]/5toGo Medications Discontinued During This Encounter topiramate (TOPAMAX) 25 mg tablet 10/04/2017 Class: Historical Med Route: ORAL Sig: Take 25 mg by mouth as needed. Disc: Course of therapy completed atenolol (TENORMIN) 25 mg tablet 10/04/2017 Class: Historical Med Route: ORAL Sig: Take 25 mg by mouth as needed. Disc: Discontinued by Patient dimenhyDRINATE (DRAMAMINE) 50 mg tab* 30 t* 1 01/23/2017 10/04/2017 Route: ORAL Sig: Take 1 tablet by mouth every 4 hours as needed (vertigo). Disc: Course of therapy completed lidocaine viscous (LIDOCAINE VISCOUS* 118 * 0 07/20/2017 10/04/2017 Route: ORAL Sig: Take 5 mL by mouth as needed for Pain. Disc: Course of therapy completed Disposition: Return for Follow-up in one year for routine physical. Follow-up and Disposition History Recorded Questionnaire: PHQ-2 AND PHQ-9 Little or no interest or pleasure in doing things -> 2 More than half the days Feeling down, depressed, or hopeless -> 0 Not at all Trouble falling or staying asleep, or sleeping too much - > 3 Nearly every day Feeling tired or having little energy -> 3 Nearly every day Poor appetite or overeating -> 3 Nearly every day Feeling bad about yourself- or that you are a failure or having let yourself or your family down -> 2 More than half the days Trouble concentrating on things, such as reading the newpaper or watching television -> 0 Not at all Moving or speaking so slowly that other people could have noticed? Or the opposite- being so fidgety or restless that you have been moving around a lot more than usual -> 1 Several days Thoughts that you would be better off or of hurting yourself in some way -> 1 S- e- v- e- r- a- l d- a- ys PHQ9P Score -> 13 Encounter Status:Closed by WEN VASQUEZ CNP on 10/05/17 LIPID PANEL Collected: 09/10/2017 Status: F Source: [facility] 6:01 AM SYSTEM REPOSITORY TYPE CODE TESTS RESULT OUT OF REFERENCE UNITS RANGE LAB 3CHOL < 200 mg/dL Cholesterol Normal 128 LAB 3TRIG <150 mg/dL Triglyceride Normal 37 LAB HDLC 40-60 mg/dL HDL Normal Cholesterol 52 LAB LDL4 <100 mg/dL Low Density Normal Lipoprotein 69 LAB CHLHD NA Chol/HDL 2 Result Comment: Ref Range: < 3 Low Risk for CHD 3-6 Mod Risk for CHD > 6 High Risk for CHD Performed By: #### LIPD2, HA1C2 #### [employer] [address] [place] [phone] HEMOGLOBIN A1C Collected: 09/10/2017 Status: F Source: [facility] 6:01 AM SYSTEM REPOSITORY TYPE CODE TESTS RESULT OUT OF RANGE REFERENCE UNITS LAB A1C2 4.0-5.7 % Normal Hemoglobin A1C 5.0 Result Comment: --HgbA1C levels may not be accurate in patients who have renal disease, received recent blood transfusions, are anemic, or who have dyshemoglobinemia. LAB EAG2 mg/dL Estimated Avg Glucose 97 Performed By: #### LIPD2, HA1C2 #### [employer] [address] [place] [phone] HEMOGRAM W/ AUTODIFF Collected: 09/09/2017 Status: F Source: [facility] 1:34 AM SYSTEM REPOSITORY TYPE CODE TESTS RESULT OUT OF REFERENCE UNITS RANGE LAB IWBC 3.6-10.7 10*3/uL WBC Normal 8.8 LAB RBC 3.80-5.20 10*6/uL RBC Normal 4.02 LAB HGB 11.7-16.0 g/dL Hemoglobin Normal 12.2 LAB HCT 35.0-47.0 % Hematocrit Normal 35.7 LAB MCV 79.0-98.0 fL MCV Normal 88.9 LAB MCH 26.0-34.0 pg MCH Normal 30.3 LAB MCHC 32.0-36.0 % MCHC Normal 34.0 LAB RDW 11.5-14.5 % RDW Normal 12.9 LAB PLT 140-440 10*3/uL Platelet Normal 257 LAB MPV 7.4-10.4 fL MPV Normal 8.2 LAB GRAN% 40.0-80.0 % Granulocytes Normal 70.6 LAB LYMP% 20.0-40.0 % Lymphocytes Normal 20.7 LAB MONO% 2.0-10.0 % Monocytes Normal 7.0 LAB EOS% 1.0-6.0 % Eosinophils Normal 1.3 LAB BAS% 0.0-2.0 % Basophils Normal 0.4 LAB ANC 1.8-7.0 10*3/uL Abs Normal Neutrophile Cnt 6.2 LAB ALC 1.0-4.3 10*3/uL Abs Lymph Cnt Normal 1.8 LAB AMC 0.0-0.8 10*3/uL Abs Monocyte Normal Cnt 0.6 LAB AEC 0.0-0.5 10*3/uL Abs Eosin Cnt Normal 0.1 LAB ABC 0.0-0.2 10*3/uL Abs Baso Cnt Normal 0.0 Performed By: #### HEMDF, SAL33, BMP3, ETOH4, ACET4 #### [employer] [address] [place] [address] SALICYLATES Collected: 09/09/2017 Status: F Source: [facility] 1:34 AM SYSTEM REPOSITORY TYPE CODE TESTS RESULT OUT OF RANGE REFERENCE UNITS LAB SAL3 0.0-20.0 mg/dL Salicylates Normal < 1.0 Performed By: #### HEMDF, SAL33, BMP3, ETOH4, ACET4 #### [facility] [address] [place] [address] BASIC METABOLIC PANEL Collected: 09/09/2017 Status: F Source: [facility] 1:34 AM SYSTEM REPOSITORY TYPE CODE TESTS RESULT OUT OF RANGE REFERENCE UNITS LAB NA3 137-145 mmol/L Sodium Normal 139 LAB K3 3.5-5.1 mmol/L Normal Potassium 3.5 LAB CL3 98-107 mmol/L Chloride Normal 101 LAB CO23 22-30 mmol/L Carbon Normal Dioxide 29 LAB ANIN3 NA Anion Gap 8 LAB GLUC3 70-100 mg/dL Glucose Normal 91 LAB BUN3 7-20 mg/dL Urea Normal Nitrogen 12 LAB CRET3 0.52-1.25 mg/dL Normal Creatinine 0.79 LAB GF3BR >60 mL/min eGFR > 60.0 LAB GF3WR >60 mL/min eGFR OTHER > 60.0 Result Comment: Source- MDRD equation with creatinine calibration to IDMS(NKDEP) eGFR not recommended for drug dose adjustment LAB CA3 8.4-10.2 mg/dL Normal Calcium 9.5 Performed By: #### HEMDF, SAL33, BMP3, ETOH4, ACET4 #### [employer] [address] [place] [id number] ETHANOL SERUM/PLASMA Collected: 09/09/2017 Status: F Source: [facility] 1:34 AM SYSTEM REPOSITORY TYPE CODE TESTS RESULT OUT OF RANGE REFERENCE UNITS LAB ETOH3 0.000-0.010 g/dL Normal < 0.010 Ethanol-Seru m/Plasma Result Comment: NOTE: This result is for medical treatment only. Analysis performed using non-forensic procedures. Performed By: #### HEMDF, SAL33, BMP3, ETOH4, ACET4 #### [employer] [address] [place] [address] ACETAMINOPHEN Collected: 09/09/2017 Status: F Source: [facility] 1:34 AM SYSTEM REPOSITORY TYPE CODE TESTS RESULT OUT OF REFERENCE UNITS RANGE LAB ACET3 10.0-30.0 ug/mL Acetaminophen Normal < 10.0 Performed By: #### HEMDF, SAL33, BMP3, ETOH4, ACET4 #### [employer] [address] [place] [address] URINALYSIS,MACRO Collected: 09/09/2017 Status: F Source: [facility] 1:34 AM SYSTEM REPOSITORY TYPE CODE TESTS RESULT OUT OF REFERENCE UNITS RANGE LAB APPUR Clear NA Appearance CLEAR LAB COLUR Lt. Yellow NA Color YELLOW LAB USG 1.005-1.030 NA Specific Normal [place],Urine 1.017 LAB UPH 5.0-8.0 NA pH,Urine Normal 6.5 LAB ULUK Negative NA Leukocytes 1 + LAB UNIT Negative NA Nitrites NEG LAB UPRO Negative mg/dL Total Protein,Urine NEG LAB UGLU Negative mg/dL Glucose,Urine NEG LAB UKET Negative mg/dL Ketone,Urine NEG LAB UURO 0-1 mg/dL Urobilinogen 0.2 LAB UBIL Negative NA Bilirubin,Ur NEG LAB UBLD Negative {RBC}/uL Occult Blood,Ur NEG Performed By: #### UAMAC, UAMIC, HCGUR, DRGA4 #### [facility] [address] [place] [address] URINALYSIS,MICROSCOPIC Collected: Status: F Source: [facility] 09/09/2017 1:34 AM HEALTH SYSTEM REPOSITORY TYPE CODE TESTS RESULT OUT OF REFERENCE UNITS RANGE LAB WBCU 0-5 /[HPF] 10 WBC,Urine LAB RBCU 0-2 /[HPF] 5 RBC,Urine LAB EPIU 3-5 /[HPF] Epithelial Cells TRACE LAB RUDDY Negative NA Bacteria NEGATIVE LAB HYL 0-1 /[LPF] Cast, 1 Hyaline Performed By: #### UAMAC, UAMIC, HCGUR, DRGA4 #### [facility] [address] [place] [address] HCG,URINE QUAL Collected: 09/09/2017 Status: F Source: [facility] 1:34 AM SYSTEM REPOSITORY TYPE CODE TESTS RESULT OUT OF REFERENCE UNITS RANGE LAB HCGUR Negative NA Negative HCG,Urine Qual Result Comment: is the most common reason for HCG in urine, although choriocarcinoma, hydatidiform mole, and certain nontropho- blastic malignancies also result in detectable urinary HCG levels. Sensitivity = 20mIU/mL. Performed By: #### UAMAC, UAMIC, HCGUR, DRGA4 #### [facility] [address] [place] [address] DRUGS OF ABUSE Collected: 09/09/2017 Status: F Source: [facility] 1:34 AM SYSTEM REPOSITORY TYPE CODE TESTS RESULT OUT OF REFERENCE UNITS RANGE LAB AMP3 NA Amphetamines, Ur Negative LAB BARB3 NA Barbiturates, Ur Negative LAB BENZ3 NA Benzodiazepines, Negative Ur LAB COC3 NA Cocaine, Ur Negative LAB METH3 NA Methadone, Ur Negative LAB OPI3 NA Opiates, Ur Negative LAB OXY3 NA Oxycodone/Oxymorph Negative ine,Ur LAB PCP3 NA Phencyclidine (PCP), Ur Negative Result Comment: The expected value for all of the drugs listed above is Negative. The following drugs or drug groups have been screened for by Immunoassay at the following thresholds: Amphetamine class (1000 ng/mL), Barbiturates (200 ng/mL), Benzodiazepines (200 ng/mL), Cocaine (300 ng/mL), Methadone (300 ng/mL), Opiates (300 ng/mL), Oxycodone (100 ng/mL), and PCP (25 ng/mL). NOTE: These results are for medical treatment only. Analysis performed using non-forensic procedures. Performed By: #### UAMAC, UAMIC, HCGUR, DRGA4 #### [facility] [address] [place] [address] CNOV Observed: 07/20/2017 Status: COMPLETED Source: [place] 2:15 PM [facility] [place] REPOSITORY Office Visit (LAMIN) RENEE GREENE ([id number]) [address] [facility] Date Time Provider Department 07/20/17 2:15 PM SAL TENA During your visit today, we recorded the following information about you: Temperature Pulse Blood pressure Weight 98.4 degrees 72/minute 96/58 67.5 kg Height 1.6 m Sal Tena APRN.SUSAN, COMMAND AND CONTROL SPECIALISTANGELA 07/20/2017 2:22 PM Addendum ASSESSMENT/PLAN: 1. Sore throat - ICD9: 462, ICD10: J02.9 (primary diagnosis) - RAPID STREP TEST B/O - negative 2. Tonsillitis - ICD9: 463, ICD10: J03.90 - AMOXICILLIN 875 MG TABLET - LIDOCAINE 2 % MUCOSAL SOLUTION Sal L Page, COMMAND AND CONTROL SPECIALIST.HEAT CURER What is strep throat? Strep throat is an infection caused by a specific type of bacteria, Streptococcus. When your child has a strep throat, the tonsils are usually very inflamed, and the inflammation may affect the surrounding part of the throat as well. Symptoms Strep throat is caused by a bacterium called Streptococcus pyogenes. To some extent, the symptoms of strep throat depend on the child?s age. - Infants with strep infections may have only a low fever and a thickened or bloody nasal discharge. - Toddlers (ages one to three) also may have a thickened or bloody nasal discharge with a fever. Such children are usually quite cranky, have no appetite, and often have swollen glands in the neck. Sometimes toddlers will complain of tummy pain instead of a sore throat. - Children over three years of age with strep are often more ill; they may have an extremely painful throat, fever over 102 degrees Fahrenheit (38.9 degrees Celsius), swollen glands in the neck, and pus on the tonsils. It?s important to be able to distinguish a strep throat from a viral sore throat, because strep infections are treated with antibiotics. When to call the indoor landscape architect If your child has a sore throat that persists (not one that goes away after her first drink in the morning), whether or not it is accompanied by fever, headache, stomachache, or extreme fatigue, you should call your indoor landscape architect. That call should be made even more urgently if your child seems extremely ill, or if she has difficulty breathing or extreme trouble swallowing (causing her to drool). This may indicate a more serious infection. Treatment If the strep test shows that your child does have strep throat, your indoor landscape architect will prescribe an antibiotic to be taken by mouth or by injection. If your child is given the oral medication, it?s very important that she take it for the full course, as prescribed, even if the symptoms get better or go away. If a child?s strep throat is not treated with antibiotics, or if she doesn?t complete the treatment, the infection may worsen or spread to other parts of her body, leading to conditions such as abscesses of the tonsils or kidney problems. Untreated strep infections also can lead to rheumatic fever, a disease that affects the heart. However, rheumatic fever is rare in the [place] and in children under five years old. Prevention Most types of throat infections are contagious, being passed primarily through the air on droplets of moisture or on the hands of infected children or adults. For that reason, it makes sense to keep your child away from people who have symptoms of this condition. However, most people are contagious before their first symptoms appear, so often there?s really no practical way to prevent your child from toribio the disease. In the past when a child had several sore throats, her tonsils might have been removed in an attempt to prevent further infections. But this operation, called a tonsillectomy, is recommended today only for the most severely affected children. Even in difficult cases, where there is repeated strep throat, antibiotic treatment is usually the best solution. SORE THROAT INSTRUCTIONS SORE THROAT OVERVIEW - Sore throat is a common problem during childhood, and is usually the result of a bacterial or viral infection. Although sore throat usually resolves without complications, it sometimes requires treatment with an antibiotic. There are some less common causes of sore throat that are serious or even life-threatening. This topic will discuss the most common causes and treatments of sore throat in children, as well as the warning signs of more serious conditions. SORE THROAT CAUSES - The most likely cause of a child's sore throat depends upon the child's age, the season, and the geographic area. While viruses are the most common cause of sore throat, bacteria are another common cause. Bacteria and viruses are spread from one person to another through hand contact. Hands get contaminated when the sick individual touches their nose or mouth and then touches another person directly (wvpo-so-knxe contact) or indirectly (wxft-dr-lzwesk, such as doorknob, telephone, toys). It is difficult to determine the cause of sore throat based upon symptoms alone; an examination and laboratory test are recommended in most cases Viruses - There are many viruses that can cause pain and swelling of the throat. The most common include viruses that cause sore throat as part of an upper respiratory infection, such as the common cold. Other viruses that cause sore throat include influenza, adenovirus, and Of[place]-H[place] virus (the cause of mononucleosis). Symptoms - Symptoms that may occur with a viral infection can include a runny nose and congestion, irritation or redness of the eyes, cough, hoarseness, soreness in the roof of the mouth, a skin rash, or diarrhea. In addition, children with viral infections may have a fever and may feel miserable. A high fever does not necessarily mean that the child has a bacterial infection. Group A streptococcus - Group A streptococcus (GAS) is the name of the bacterium that causes strep throat. Although other bacteria can cause a sore throat, GAS is the most common bacterial cause; up to 30 percent of children with a sore throat will have GAS. Strep throat usually occurs during the winter and early spring, and is most common in school-age children and their younger siblings. Symptoms - Symptoms of strep throat in children older than 3 years often develop suddenly and include fever (temperature ?100.4?F or 38?C), headache, abdominal pain, nausea, and vomiting. Other symptoms can include swollen glands in the neck, white patches of pus in the back or sides of the throat, small red spots on the roof of the mouth, and swelling of the uvula. A cough and cold are not commonly seen in children with strep throat. Strep throat is uncommon in children younger than age 2 to 3 years. However, GAS infection can occur in younger children, and may cause a runny nose and congestion that is prolonged, low-grade fever (?101?F or 38.3?C), and tender glands in the neck. Infants younger than 1 year may be fussy and have a decreased appetite and low-grade fever. SORE THROAT TREATMENT - The treatment of sore throat depends upon the cause; strep throat is treated with an antibiotic while viral pharyngitis is treated with rest, pain relievers, and other measures to reduce symptoms. Strep throat - Strep throat is usually treated with an antibiotic, such as penicillin, or an antibiotic similar to penicillin (eg, amoxicillin). Children who are allergic to penicillin will be given an alternate antibiotic. The antibiotic is usually given in pill or liquid form two or three times per day. A one-time injection is also available, and may be recommended if a child is unwilling to take an oral medication. After completing 24 hours of antibiotics, the child is no longer contagious and may return to school. Symptoms usually improve within 1 to 2 days. However, it is important for the child to finish the entire course of treatment (usually 10 days). If a child does not begin to improve or worsens within 3 days, the child should be reevaluated. Throat pain can be treated with a non-prescription pain medication, if needed. (See 'Pain medications' below.) In addition, parents should monitor their child for dehydration, which can develop if the child is not willing to drink or eat due to a sore throat. (See 'Monitor for dehydration' below.) Viral throat pain - Sore throat caused by viral infections usually last 4 to 5 days. During this time, treatments to reduce pain may be helpful but will not help to eliminate the virus. Antibiotics do not improve throat pain caused by a virus and are not recommended. A child with a viral infection is usually allowed to return to school when there has been no fever for 24 hours and the child feels well enough to pay attention. Pain medications - Throat pain can be treated with a mild pain reliever such as acetaminophen (Tylenol?) or a non-steroidal anti-inflammatory agent such as ibuprofen (Motrin?). These medications should be dosed according to weight, not age. Aspirin is not recommended for children ANDlt;18 years due to the risk of a potentially serious condition known as Avis syndrome. Monitor for dehydration - Some children with a sore throat are reluctant to drink or eat due to pain. Drinking less fluid can lead to dehydration. To reduce the risk of dehydration, parents can offer warm or cold liquids. (See 'Other interventions' below.) Signs and symptoms of mild dehydration include a slightly dry mouth, increased thirst, and decreased urine output (one wet diaper or void in six hours). Signs of moderate or severe dehydration include decreased urine output (less than one wet diaper or void in six hours), lack of tears when crying, dry mouth, and sunken eyes. A child who is moderately or severely dehydrated should be evaluated by a healthcare provider as soon as possible to determine if treatment is needed. Oral rinses- Salt-water gargles are an old stand-by for relief of throat pain. It is not clear if this treatment is effective, but it is unlikely to be harmful. Most recipes suggest 1/4 to 1/2 teaspoon of salt per cup (8 ounces) of warm water. The water should be gargled and then spit out (not swallowed). Children younger than six to eight years are not able to gargle properly. An oral rinse composed of equal parts of diphenhydramine (Benadryl? liquid) and Maalox? (magnesium hydroxide, aluminum hydroxide, and simethicone) may be helpful for pain caused by a sore mouth or ulcers in the mouth. Children older than six to eight years may swish and spit (not swallow) the mixture. Sprays - Sprays containing topical anesthetics are available to treat sore throat. However, such sprays are no more effective than sucking on hard candy. In addition, a common anesthetic ingredient, benzocaine, can cause allergic reactions. We do not recommend throat sprays for children. Lozenges - A variety of medicated throat lozenges are available to relieve dryness or pain. However, it is not clear that lozenges work any better than hard candy. We do not recommend throat lozenges for children, especially children younger than 3 to 4 years, who can choke. Sucking on hard candy may provide some relief for children older than 3 to 4 years, who are not at risk for choking. Other interventions - Other interventions include sipping warm beverages (eg, honey or lemon tea, chicken soup), cold beverages, or eating cold or frozen desserts (eg, ice cream, popsicles). These treatments are safe for children. Honey should not be given to children younger than 12 months due to the potential risk of botulism poisoning. Alternative therapies - Health food stores, vitamin outlets, and Internet Web sites offer alternative treatments for relief of sore throat pain. We do not recommend these treatments due to the risks of contamination with pesticides/herbicides, inaccurate labeling and dosing information, and a lack of studies showing that these treatments are safe and effective. SORE THROAT PREVENTION - Hand washing is an essential and highly effective way to prevent the spread of infection. Hands should be wet with water and plain soap, and rubbed together for 15 to 30 seconds. Special attention should be paid to the fingernails, between the fingers, and the wrists. Hands should be rinsed thoroughly, and dried with a single use towel. Alcohol-based hand rubs are a good alternative for disinfecting hands if a sink is not available. Hand rubs should be spread over the entire surface of hands, fingers, and wrists until dry, and may be used several times. These rubs can be used repeatedly without skin irritation or loss of effectiveness. Hand rubs are available as a liquid or wipe in small, portable sizes that are easy to carry in a pocket or handbag. When a sink is available, visibly soiled hands should be washed with soap and water. Hands should be washed after coughing, blowing the nose or sneezing. While it is not always possible to limit contact with a person who is sick, avoiding touching the eyes, nose, or mouth after direct contact can help to prevent the spread of infection. In addition, tissues should be used to cover the mouth when sneezing or coughing. These used tissues should be disposed of promptly. Sneezing/coughing into the sleeve of one's clothing (at the inner elbow) is another means of containing sprays of saliva and secretions and has the advantage of not contaminating the hands. WHEN TO SEEK HELP - Parents of a child with throat pain and one or more of the following should contact their healthcare provider immediately: Difficulty swallowing or breathing Excessive drooling in an or young child Temperature ?101?F or 38.3?C Swelling of the neck Child is unable or unwilling to drink or eat Voice sounds muffled Child has a stiff neck or difficulty opening the mouth WHERE TO GET MORE INFORMATION - Your child's healthcare provider is the best source of information for questions and concerns related to your child's medical problem. This article will be updated as needed every four months on our web site ([email or web address]). Information below was obtained from ANDquot;Up to dateANDquot; Last literature review version 19.2: August 2010 This topic last updated: December 16, 2009 Sal Tena APRN.KALPESH DAVIS.SUSAN 07/20/2017 2:22 PM Signed 07/20/2017 Patient presents with: Sore Throat: X1 day Patient states left side hurts causing back of neck pain and HINES. SUBJECTIVE: This is a 16 year old female that is here today for acute onset of sore throat, painful swallowing with eating and drinking, left sided neck pain, left ear pain, nauseated last pm, rhinorrhea, headaches for 3 days. Patient rates pain at 8 on Numerical pain scale. Patient has been taking rest with minimal relief of symptoms. The severity is mild and the symptoms are not improving. The patient did not have a similar problem in the last 3 months. The patient did not take any antibiotics in the last 3 months. Patient has not been exposed to sick contacts. Patient denies recent travel. Pertinent medical history: PAST MEDICAL HISTORY Diagnosis Date - Atypical chest pain - Depression Possible Bipolar/ at [facility] 08/2014 - Heart palpitations ALLERGIES Review of patient's allergies indicates no known allergies. MEDICATIONS Current Outpatient Prescriptions: topiramate (TOPAMAX) 25 mg tablet Take 25 mg by mouth as needed. atenolol (TENORMIN) 25 mg tablet Take 25 mg by mouth as needed. dimenhyDRINATE (DRAMAMINE) 50 mg tablet Take 1 tablet by mouth every 4 hours as needed (vertigo). No current facility-administered medications for this visit. SOCIAL HISTORY Social History Marital status: Single Spouse name: Years of education: Number of children: 0 Occupational History Occupation Employer Comment [employer] Social History Main Topics Smoking status: Current Every Day Smoker Packs/day: 0.50 Years: 0.00 Types: Cigarettes Last attempt to quit: 12/30/2016 Smokeless status: Never Used Alcohol use: No Drug use: No Sexual activity: Yes Partners with: Male REVIEW OF SYSTEMS Review of Systems Constitutional: Positive for fatigue. Negative for chills, diaphoresis and fever. HENT: Positive for ear pain, rhinorrhea and sore throat. Negative for congestion, postnasal drip, sinus pain and sinus pressure. Respiratory: Negative for cough, chest tightness, shortness of breath and wheezing. Cardiovascular: Negative for chest pain and palpitations. Gastrointestinal: Negative for abdominal pain, diarrhea, nausea and vomiting. Skin: Negative for rash. Neurological: Positive for headaches. Negative for dizziness and light-headedness. OBJECTIVE: BP 96/58 Pulse 72 Temp 36.9 ?C (98.4 ?F) (Oral) Ht 160 cm (5' 3ANDquot;) Wt 67.5 kg (148 lb 12.8 oz) SpO2 99% BMI 26.36 kg/m2 Physical Exam Constitutional: She is oriented to person, place, and time. Vital signs are normal. She appears well-developed and well-nourished. Non- toxic appearance. HENT: Head: Normocephalic and atraumatic. Right Ear: Tympanic membrane, external ear and ear canal normal. Left Ear: Tympanic membrane, external ear and ear canal normal. Nose: Nose normal. Right sinus exhibits no maxillary sinus tenderness and no frontal sinus tenderness. Left sinus exhibits no maxillary sinus tenderness and no frontal sinus tenderness. Mouth/Throat: Uvula is midline and mucous membranes are normal. Posterior oropharyngeal edema and posterior oropharyngeal erythema present. Tonsils are 3+ on the left. Neck: Normal range of motion. Cardiovascular: Normal rate, regular rhythm and normal heart sounds. Pulmonary/Chest: Effort normal and breath sounds normal. Lymphadenopathy: She has no cervical adenopathy. She has no axillary adenopathy. Neurological: She is alert and oriented to person, place, and time. Skin: Skin is warm, dry and intact. Nursing note and vitals reviewed. ASSESSMENT/PLAN: 1. Sore throat - ICD9: 462, ICD10: J02.9 (primary diagnosis) - RAPID STREP TEST B/O - negative 2. Tonsillitis - ICD9: 463, ICD10: J03.90 - AMOXICILLIN 875 MG TABLET - LIDOCAINE 2 % MUCOSAL SOLUTION Sal Tena APRN.HEAT CURER Referring Provider: SELF [200] Allergies As of Date: 07/20/2017 (No Known Allergies) Date Reviewed: 07/20/2017 Reviewed by: Sal Tena APRN.HEAT CURER - Fully Assessed Reason for Visit: Sore Throat [200] Cmt: X1 day Patient states left side hurts causing back of neck pain and HINES. Primary Visit Diagnosis:Sore throat [J02.9] Other Visit Diagnosis:Tonsillitis [J03.90] Order(s):RAPID STREP TEST B/O [[id number]] Order #: [id number] amoxicillin (AMOXIL) 875 mg tabletTake 1 tablet by mouth every 12 hours for 10 days.Disp: 20 tabletRfl: 0 lidocaine viscous (LIDOCAINE VISCOUS) 2 % solutionTake 5 mL by mouth as needed for Pain.Disp: 118 mLRfl: 0 Prescriptions as of 07/20/2017 Sig: TOPIRAMATE 25 MG TABLET Take 25 mg by mouth as needed. ATENOLOL 25 MG TABLET Take 25 mg by mouth as needed. AMOXICILLIN 875 MG TABLET Take 1 tablet by mouth every * LIDOCAINE 2 % MUCOSAL SOLUTION Take 5 mL by mouth as needed * DIMENHYDRINATE 50 MG TABLET Take 1 tablet by mouth every * Problem List As Of Date 07/20/2017 Noted Resolved High risk teen [O09.899] INVALID FOR* Dysthymia [F34.1] INVALID FOR* History of congenital heart defect [Z87.74] INVALID FOR* More... Supervision of high risk due to socia*INVALID FOR* More... Uterine size-date discrepancy [O26.849] INVALID FOR* More... Other instructions from your clinician: ASSESSMENT/PLAN: 1. Sore throat - ICD9: 462, ICD10: J02.9 (primary diagnosis) - RAPID STREP TEST B/O - negative 2. Tonsillitis - ICD9: 463, ICD10: J03.90 - AMOXICILLIN 875 MG TABLET - LIDOCAINE 2 % MUCOSAL SOLUTION Sal Tena APRN.HEAT CURER What is strep throat? Strep throat is an infection caused by a specific type of bacteria, Streptococcus. When your child has a strep throat, the tonsils are usually very inflamed, and the inflammation may affect the surrounding part of the throat as well. Symptoms Strep throat is caused by a bacterium called Streptococcus pyogenes. To some extent, the symptoms of strep throat depend on the child?s age. - Infants with strep infections may have only a low fever and a thickened or bloody nasal discharge. - Toddlers (ages one to three) also may have a thickened or bloody nasal discharge with a fever. Such children are usually quite cranky, have no appetite, and often have swollen glands in the neck. Sometimes toddlers will complain of tummy pain instead of a sore throat. - Children over three years of age with strep are often more ill; they may have an extremely painful throat, fever over 102 degrees Fahrenheit (38.9 degrees Celsius), swollen glands in the neck, and pus on the tonsils. It?s important to be able to distinguish a strep throat from a viral sore throat, because strep infections are treated with antibiotics. When to call the indoor landscape architect If your child has a sore throat that persists (not one that goes away after her first drink in the morning), whether or not it is accompanied by fever, headache, stomachache, or extreme fatigue, you should call your indoor landscape architect. That call should be made even more urgently if your child seems extremely ill, or if she has difficulty breathing or extreme trouble swallowing (causing her to drool). This may indicate a more serious infection. Treatment If the strep test shows that your child does have strep throat, your indoor landscape architect will prescribe an antibiotic to be taken by mouth or by injection. If your child is given the oral medication, it?s very important that she take it for the full course, as prescribed, even if the symptoms get better or go away. If a child?s strep throat is not treated with antibiotics, or if she doesn?t complete the treatment, the infection may worsen or spread to other parts of her body, leading to conditions such as abscesses of the tonsils or kidney problems. Untreated strep infections also can lead to rheumatic fever, a disease that affects the heart. However, rheumatic fever is rare in the [place] and in children under five years old. Prevention Most types of throat infections are contagious, being passed primarily through the air on droplets of moisture or on the hands of infected children or adults. For that reason, it makes sense to keep your child away from people who have symptoms of this condition. However, most people are contagious before their first symptoms appear, so often there?s really no practical way to prevent your child from toribio the disease. In the past when a child had several sore throats, her tonsils might have been removed in an attempt to prevent further infections. But this operation, called a tonsillectomy, is recommended today only for the most severely affected children. Even in difficult cases, where there is repeated strep throat, antibiotic treatment is usually the best solution. SORE THROAT INSTRUCTIONS SORE THROAT OVERVIEW - Sore throat is a common problem during childhood, and is usually the result of a bacterial or viral infection. Although sore throat usually resolves without complications, it sometimes requires treatment with an antibiotic. There are some less common causes of sore throat that are serious or even life-threatening. This topic will discuss the most common causes and treatments of sore throat in children, as well as the warning signs of more serious conditions. SORE THROAT CAUSES - The most likely cause of a child's sore throat depends upon the child's age, the season, and the geographic area. While viruses are the most common cause of sore throat, bacteria are another common cause. Bacteria and viruses are spread from one person to another through hand contact. Hands get contaminated when the sick individual touches their nose or mouth and then touches another person directly (uvfm-ze-hatv contact) or indirectly (yaqv-ty-npqngg, such as doorknob, telephone, toys). It is difficult to determine the cause of sore throat based upon symptoms alone; an examination and laboratory test are recommended in most cases Viruses - There are many viruses that can cause pain and swelling of the throat. The most common include viruses that cause sore throat as part of an upper respiratory infection, such as the common cold. Other viruses that cause sore throat include influenza, adenovirus, and [place]-H[place] virus (the cause of mononucleosis). Symptoms - Symptoms that may occur with a viral infection can include a runny nose and congestion, irritation or redness of the eyes, cough, hoarseness, soreness in the roof of the mouth, a skin rash, or diarrhea. In addition, children with viral infections may have a fever and may feel miserable. A high fever does not necessarily mean that the child has a bacterial infection. Group A streptococcus - Group A streptococcus (GAS) is the name of the bacterium that causes strep throat. Although other bacteria can cause a sore throat, GAS is the most common bacterial cause; up to 30 percent of children with a sore throat will have GAS. Strep throat usually occurs during the winter and early spring, and is most common in school-age children and their younger siblings. Symptoms - Symptoms of strep throat in children older than 3 years often develop suddenly and include fever (temperature ?100.4?F or 38?C), headache, abdominal pain, nausea, and vomiting. Other symptoms can include swollen glands in the neck, white patches of pus in the back or sides of the throat, small red spots on the roof of the mouth, and swelling of the uvula. A cough and cold are not commonly seen in children with strep throat. Strep throat is uncommon in children younger than age 2 to 3 years. However, GAS infection can occur in younger children, and may cause a runny nose and congestion that is prolonged, low-grade fever (?101?F or 38.3?C), and tender glands in the neck. Infants younger than 1 year may be fussy and have a decreased appetite and low-grade fever. SORE THROAT TREATMENT - The treatment of sore throat depends upon the cause; strep throat is treated with an antibiotic while viral pharyngitis is treated with rest, pain relievers, and other measures to reduce symptoms. Strep throat - Strep throat is usually treated with an antibiotic, such as penicillin, or an antibiotic similar to penicillin (eg, amoxicillin). Children who are allergic to penicillin will be given an alternate antibiotic. The antibiotic is usually given in pill or liquid form two or three times per day. A one-time injection is also available, and may be recommended if a child is unwilling to take an oral medication. After completing 24 hours of antibiotics, the child is no longer contagious and may return to school. Symptoms usually improve within 1 to 2 days. However, it is important for the child to finish the entire course of treatment (usually 10 days). If a child does not begin to improve or worsens within 3 days, the child should be reevaluated. Throat pain can be treated with a non-prescription pain medication, if needed. (See 'Pain medications' below.) In addition, parents should monitor their child for dehydration, which can develop if the child is not willing to drink or eat due to a sore throat. (See 'Monitor for dehydration' below.) Viral throat pain - Sore throat caused by viral infections usually last 4 to 5 days. During this time, treatments to reduce pain may be helpful but will not help to eliminate the virus. Antibiotics do not improve throat pain caused by a virus and are not recommended. A child with a viral infection is usually allowed to return to school when there has been no fever for 24 hours and the child feels well enough to pay attention. Pain medications - Throat pain can be treated with a mild pain reliever such as acetaminophen (Tylenol?) or a non-steroidal anti-inflammatory agent such as ibuprofen (Motrin?). These medications should be dosed according to weight, not age. Aspirin is not recommended for children <18 years due to the risk of a potentially serious condition known as Avis syndrome. Monitor for dehydration - Some children with a sore throat are reluctant to drink or eat due to pain. Drinking less fluid can lead to dehydration. To reduce the risk of dehydration, parents can offer warm or cold liquids. (See 'Other interventions' below.) Signs and symptoms of mild dehydration include a slightly dry mouth, increased thirst, and decreased urine output (one wet diaper or void in six hours). Signs of moderate or severe dehydration include decreased urine output (less than one wet diaper or void in six hours), lack of tears when crying, dry mouth, and sunken eyes. A child who is moderately or severely dehydrated should be evaluated by a healthcare provider as soon as possible to determine if treatment is needed. Oral rinses- Salt-water gargles are an old stand-by for relief of throat pain. It is not clear if this treatment is effective, but it is unlikely to be harmful. Most recipes suggest 1/4 to 1/2 teaspoon of salt per cup (8 ounces) of warm water. The water should be gargled and then spit out (not swallowed). Children younger than six to eight years are not able to gargle properly. An oral rinse composed of equal parts of diphenhydramine (Benadryl? liquid) and Maalox? (magnesium hydroxide, aluminum hydroxide, and simethicone) may be helpful for pain caused by a sore mouth or ulcers in the mouth. Children older than six to eight years may swish and spit (not swallow) the mixture. Sprays - Sprays containing topical anesthetics are available to treat sore throat. However, such sprays are no more effective than sucking on hard candy. In addition, a common anesthetic ingredient, benzocaine, can cause allergic reactions. We do not recommend throat sprays for children. Lozenges - A variety of medicated throat lozenges are available to relieve dryness or pain. However, it is not clear that lozenges work any better than hard candy. We do not recommend throat lozenges for children, especially children younger than 3 to 4 years, who can choke. Sucking on hard candy may provide some relief for children older than 3 to 4 years, who are not at risk for choking. Other interventions - Other interventions include sipping warm beverages (eg, honey or lemon tea, chicken soup), cold beverages, or eating cold or frozen desserts (eg, ice cream, popsicles). These treatments are safe for children. Honey should not be given to children younger than 12 months due to the potential risk of botulism poisoning. Alternative therapies - Health food stores, vitamin outlets, and Internet Web sites offer alternative treatments for relief of sore throat pain. We do not recommend these treatments due to the risks of contamination with pesticides/herbicides, inaccurate labeling and dosing information, and a lack of studies showing that these treatments are safe and effective. SORE THROAT PREVENTION - Hand washing is an essential and highly effective way to prevent the spread of infection. Hands should be wet with water and plain soap, and rubbed together for 15 to 30 seconds. Special attention should be paid to the fingernails, between the fingers, and the wrists. Hands should be rinsed thoroughly, and dried with a single use towel. Alcohol-based hand rubs are a good alternative for disinfecting hands if a sink is not available. Hand rubs should be spread over the entire surface of hands, fingers, and wrists until dry, and may be used several times. These rubs can be used repeatedly without skin irritation or loss of effectiveness. Hand rubs are available as a liquid or wipe in small, portable sizes that are easy to carry in a pocket or handbag. When a sink is available, visibly soiled hands should be washed with soap and water. Hands should be washed after coughing, blowing the nose or sneezing. While it is not always possible to limit contact with a person who is sick, avoiding touching the eyes, nose, or mouth after direct contact can help to prevent the spread of infection. In addition, tissues should be used to cover the mouth when sneezing or coughing. These used tissues should be disposed of promptly. Sneezing/coughing into the sleeve of one's clothing (at the inner elbow) is another means of containing sprays of saliva and secretions and has the advantage of not contaminating the hands. WHEN TO SEEK HELP - Parents of a child with throat pain and one or more of the following should contact their healthcare provider immediately: Difficulty swallowing or breathing Excessive drooling in an infant or young child Temperature ?101?F or 38.3?C Swelling of the neck Child is unable or unwilling to drink or eat Voice sounds muffled Child has a stiff neck or difficulty opening the mouth WHERE TO GET MORE INFORMATION - Your child's healthcare provider is the best source of information for questions and concerns related to your child's medical problem. This article will be updated as needed every four months on our web site ([email or web address]). Information below was obtained from Up to date Last literature review version 19.2: August 2010 This topic last updated: December 16, 2009 Prescriptions ordered this encounter Disp Refills Start End AMOXICILLIN 875 MG TABLET 20 t* 0 07/20/2017 07/30/2017 Route: ORAL Sig: Take 1 tablet by mouth every 12 hours for 10 days. LIDOCAINE 2 % MUCOSAL SOLUTION 118 * 0 07/20/2017 Route: ORAL Sig: Take 5 mL by mouth as needed for Pain. Medications Discontinued During This Encounter topiramate (TOPAMAX) 25 mg tablet 60 t* 2 03/17/2017 07/20/2017 Route: ORAL Sig: Take 1 tablet by mouth daily at bedtime. After 1 week increase to 2 tablets at bedtime. Disc: Course of therapy completed atenolol (TENORMIN) 25 mg tablet 30 t* 6 03/08/2017 07/20/2017 Route: ORAL Sig: Take 1 tablet by mouth once daily. Disc: Course of therapy completed ondansetron orally disintegrating (Z* 30 t* 0 01/23/2017 07/20/2017 Route: ORAL Sig: Take 1 tablet by mouth every 6 hours as needed for Nausea/Vomiting. Disc: Course of therapy completed benzonatate (TESSALON PERLE) 100 mg * 30 c* 0 03/30/2017 07/20/2017 Route: ORAL Sig: Take 1 capsule by mouth three times daily as needed. Disc: Course of therapy completed benzonatate (TESSALON PERLE) 100 mg * 30 c* 0 03/30/2017 07/20/2017 Route: ORAL Sig: Take 1 capsule by mouth three times daily as needed. Disc: Course of therapy completed Letter Text Sal Tena CNP [address], [place] [address] Renee Greene July 20, 2017 RE: Renee Greene To Whom it May Concern: This is to certify that Renee Greene has been a patient under my care. Please excuse her from school on July 20, 2017. Thank you for your cooperation in this matter. Sincerely, Sal Tena CNP (Electronically signed to expedite processing) Encounter Status:Closed by SAL TENA on 07/20/17 PROGRESS Observed: 07/20/2017 Status: COMPLETED Source: [place] 2:04 PM [facility] REPOSITORY HNO ID: [id number] Author: Sal Tena APRN.SUSAN Service: (none) Author Type: Nurse Practitioner Type: Progress Notes Filed: 07/20/2017 2:22 PM Note Text: 07/20/2017 Patient presents with: Sore Throat: X1 day Patient states left side hurts causing back of neck pain and HINES. SUBJECTIVE: This is a 16 year old female that is here today for acute onset of sore throat, painful swallowing with eating and drinking, left sided neck pain, left ear pain, nauseated last pm, rhinorrhea, headaches for 3 days. Patient rates pain at 8 on Numerical pain scale. Patient has been taking rest with minimal relief of symptoms. The severity is mild and the symptoms are not improving. The patient did not have a similar problem in the last 3 months. The patient did not take any antibiotics in the last 3 months. Patient has not been exposed to sick contacts. Patient denies recent travel. Pertinent medical history: PAST MEDICAL HISTORY Diagnosis Date - Atypical chest pain - Depression Possible Bipolar/ at [facility] 08/2014 - Heart palpitations ALLERGIES Review of patient's allergies indicates no known allergies. MEDICATIONS Current Outpatient Prescriptions: topiramate (TOPAMAX) 25 mg tablet Take 25 mg by mouth as needed. atenolol (TENORMIN) 25 mg tablet Take 25 mg by mouth as needed. dimenhyDRINATE (DRAMAMINE) 50 mg tablet Take 1 tablet by mouth every 4 hours as needed (vertigo). No current facility-administered medications for this visit. SOCIAL HISTORY Social History Marital status: Single Spouse name: Years of education: Number of children: 0 Occupational History Occupation Employer Comment Student [employer] Social History Main Topics Smoking status: Current Every Day Smoker Packs/day: 0.50 Years: 0.00 Types: Cigarettes Last attempt to quit: 12/30/2016 Smokeless status: Never Used Alcohol use: No Drug use: No Sexual activity: Yes Partners with: Male REVIEW OF SYSTEMS Review of Systems Constitutional: Positive for fatigue. Negative for chills, diaphoresis and fever. HENT: Positive for ear pain, rhinorrhea and sore throat. Negative for congestion, postnasal drip, sinus pain and sinus pressure. Respiratory: Negative for cough, chest tightness, shortness of breath and wheezing. Cardiovascular: Negative for chest pain and palpitations. Gastrointestinal: Negative for abdominal pain, diarrhea, nausea and vomiting. Skin: Negative for rash. Neurological: Positive for headaches. Negative for dizziness and light-headedness. OBJECTIVE: BP 96/58 Pulse 72 Temp 36.9 ?C (98.4 ?F) (Oral) Ht 160 cm (5' 3) Wt 67.5 kg (148 lb 12.8 oz) SpO2 99% BMI 26.36 kg/m2 Physical Exam Constitutional: She is oriented to person, place, and time. Vital signs are normal. She appears well-developed and well-nourished. Non-toxic appearance. HENT: Head: Normocephalic and atraumatic. Right Ear: Tympanic membrane, external ear and ear canal normal. Left Ear: Tympanic membrane, external ear and ear canal normal. Nose: Nose normal. Right sinus exhibits no maxillary sinus tenderness and no frontal sinus tenderness. Left sinus exhibits no maxillary sinus tenderness and no frontal sinus tenderness. Mouth/Throat: Uvula is midline and mucous membranes are normal. Posterior oropharyngeal edema and posterior oropharyngeal erythema present. Tonsils are 3+ on the left. Neck: Normal range of motion. Cardiovascular: Normal rate, regular rhythm and normal heart sounds. Pulmonary/Chest: Effort normal and breath sounds normal. Lymphadenopathy: She has no cervical adenopathy. She has no axillary adenopathy. Neurological: She is alert and oriented to person, place, and time. Skin: Skin is warm, dry and intact. Nursing note and vitals reviewed. ASSESSMENT/PLAN: 1. Sore throat - ICD9: 462, ICD10: J02.9 (primary diagnosis) - RAPID STREP TEST B/O - negative 2. Tonsillitis - ICD9: 463, ICD10: J03.90 - AMOXICILLIN 875 MG TABLET - LIDOCAINE 2 % MUCOSAL SOLUTION Sal Tena APRN.SUSAN Observed: 07/10/2017 Status: F Source: [facility] CULTURE URINE 11:36 PM SYSTEM REPOSITORY CULTURE URINE --> Status: F Normal urogenital angeline present. Performed By: #### C/UR #### The performing lab is in the report. PROGRESS Observed: 06/01/2017 Status: COMPLETED Source: [place] 2:08 PM [facility] REPOSITORY HNO ID: [id number] Author: Fani Lincoln) Kim Service: (none) Author Type: Nurse Practitioner Type: Progress Notes Filed: 06/01/2017 2:20 PM Note Text: CORRINE Greene is a 16 year old female who presents with 5 days of cough and headache and vomiting and diarrhea today. She vomited once today. She went to the ER in [place] for this 2 days ago. She had pain medication and IV fluids. She feels some better today. She still has a headache. She has taken tension headache medicine for headache. She states this is the worst headache of her life. Review of Systems Constitutional: Positive for malaise/fatigue. Negative for chills and fever. HENT: Negative. Negative for congestion, ear pain and sore throat. Eyes: Positive for blurred vision and double vision. Respiratory: Positive for shortness of breath. Negative for cough. Cardiovascular: Positive for chest pain. Gastrointestinal: Positive for nausea and vomiting (once today). Musculoskeletal: Negative. Negative for myalgias. Skin: Negative. Negative for rash. Neurological: Positive for dizziness and headaches. BP 100/66 Pulse 82 Temp 36.8 ?C (98.3 ?F) (Tympanic) Resp 14 Wt 64.4 kg (142 lb) SpO2 99% PAST MEDICAL HISTORY Diagnosis Date - Depression Possible Bipolar/ at [facility] 08/2014 PAST SURGICAL HISTORY Procedure Laterality Date - NONE ALLERGIES Review of patient's allergies indicates no known allergies. MEDICATIONS topiramate (TOPAMAX) 25 mg tablet Take 1 tablet by mouth daily at bedtime. After 1 week increase to 2 tablets at bedtime. atenolol (TENORMIN) 25 mg tablet Take 1 tablet by mouth once daily. benzonatate (TESSALON PERLE) 100 mg capsule Take 1 capsule by mouth three times daily as needed. ondansetron orally disintegrating (ZOFRAN ODT) 4 mg disintegrating tablet Take 1 tablet by mouth every 6 hours as needed for Nausea/Vomiting. dimenhyDRINATE (DRAMAMINE) 50 mg tablet Take 1 tablet by mouth every 4 hours as needed (vertigo). FAMILY HISTORY Problem Relation Age of Onset - Cancer Paternal Grandfather Skin - Stroke Brother - polycystic kidney disease [OTHER] Brother maternal side Social History Substance Use Topics - Smoking status: Former Smoker Packs/day: 0.50 Types: Cigarettes Quit date: 12/30/2016 - Smokeless tobacco: Never Used - Alcohol use No Physical Exam Physical exam deferred, patient referred to the ER. ASSESSMENT/PLAN: 1. Headache, unspecified headache type - ICD9: 784.0, ICD10: R51 - patient describes symptoms that are beyond the scope of Express care treatment ( dizziness, headache, double vision, blurred vision, worst headache of my life and patient has already been treated for this complaint once in [place] ER without improvement. Patient is advised to go an ER of her choice for further evaluation/treatment. She agrees with this plan. Fani Alvarez CNP ALLERGIES ALLERGIES DATE TYPE / CODE NAME / CODE REACTION SEVERITY SOURCE 05/07/2017 Drug No Known Unknown [facility] Allergy/416 Allergies/B02479 [facility] 106561(SNOM 0388(RXNORM) Repository ED CT) [id number] NO KNOWN [facility] 6(SNOMED ALLERGIES [facility]) Repository Drug NO KNOWN [facility] Class/27223 ALLERGIES [facility] [place] 1003(SNOMED Repository CT) ENCOUNTERS ENCOUNTERS ADMIT/DISCHARGE ACCOUNT NUMBER ADMITTING ENCOUNTER LOCATION SOURCE CLASS 04/14/2018/04/14/20 [id number] Emergency [address] ding:ED Repository 03/15/2018/03/16/20 [id number] Ambulatory [address] Repository 03/07/2018 [id number] Emergency [facility] EDRoom: System [id number]: Repository [id number] 01/22/2018 [id number] Ambulatory [facility] MEDICAL Repository CENTERBuildi ng:CAGWS 12/09/2017 [id number] Emergency [facility] EDRoom: 2A System 444Bed: Repository [id number] 11/20/2017/11/22/19 [id number] Ambulatory [address] Repository 11/13/2017 [id number] Ambulatory [facility] System Repository 10/04/2017 [id number] Ambulatory [facility] Repository 10/04/2017/10/06/19 [id number] Ambulatory [address] Repository 09/09/2017 [id number] Emergency [facility] EDRoom: 2A System 444Bed: Repository [id number] 07/20/2017/07/25/19 [id number] Ambulatory [address] Repository 07/20/2017 [id number] Ambulatory [facility] MEDICAL Repository CENTERBuildi ng:CAGWS 07/10/2017 [id number] Emergency [facility] EDRoom: System [id number]: Repository [id number] 06/01/2017/06/05/19 [id number] Ambulatory [address] Repository 05/30/2017/05/30/19 [id number] Emergency BBuilding:SANDRA Franco [address] [place] [address] Repository PAYERS PAYERS ENCOUNTER GUARANTOR PAYER SUBSCRIBER SOURCE 04/14/2018 RENEE R [id number] Primary RENEE R BASHDOB: [place] Insurance:[place] [id number] 92008Mvu: (846) PLANPolicy Number: Repository -7272 () [id number] Date:1049-19-50FX [address] [place] [address]MO: 04/14/2018 Secondary NOT GIVENUNK [place] Insurance:SELF PAY [facility] Number: Effective Repository Date:2018-04-14 03/07/2018 Renee BashDOB: Primary Renee BashDOB: [facility] [id number] Number: Effective Repository [place] [address]Rpt: Date: () 01/22/2018 RENEE BASHDOB: Primary RENEE BASHDOB: [facility] Insurance:[facility] [id number] 1/2 [place] MEDICAIDPolicy Repository [place], [place] Number: [id number]: (833) [id number] () Date: 12/09/2017 Renee BashDOB: Primary Renee BashDOB: [facility] [employer] Insurance:[facility] [id number] [place] Number: Effective Repository [place], [place] Date: [id number]: () 11/13/2017 Renee BashDOB: Primary Renee BashDOB: [facility] [employer] Insurance:[employer] [id number] cy Number: Effective Repository [place], [place] Date: [address]Nxn: (HP) 09/09/2017 Renee BashDOB: Primary Renee BashDOB: [facility] Insurance:[facility] [id number] System 05/02 [facility] cy Number: Effective Repository [facility], Date: [place] [address]Cpi: (HP) 07/20/2017 RENEE BASHDOB: Primary RENEE BASHDOB: [facility] Insurance:[facility] [id number] [facility] [place] MEDICAID[place] Repository [place], [place] Number: [id number]: 330 [id number] [phone] () Date: 07/10/2017 Renee BashDOB: Primary Renee BashDOB: [facility] Insurance:[facility] [id number] System 05/02 [facility] cy Number: Effective Repository [facility], Date: [place] [address]Mwx: (HP) 05/30/2017 RENEE R BASHDOB: Primary RENEE R BASHDOB: [facility] Insurance:[place] [id number] [facility] [place], [place] Number: [place] [id number]: ([phone] [id number]: (HP) Date:[id number] ()Tel: ([phone]) Name:SHREYAS Griffith [phone] () [place] [phone]:
== END 2018-04-14 16:45 | disposition home or self-care (01) ==
LOC: ED 16:43
PROVIDERS: Emergency Provider Emergency Medicine; Family Provider Family Medicine; PCP Family Medicine
DX: S61.213A Laceration without foreign body of left middle finger without damage to nail, initial encounter (principal); W26.0XXA Contact with knife, initial encounter; Z72.0 Tobacco use
CPT/HCPCS: 12001; 99283

== ENCOUNTER 2018-07-21 13:46 | Emergency (ER) | payer MEDICAID, SELFPAY ==
[2018-07-21 13:47] VITALS: BP 123/72; PULSE 128; RESP 16; TEMP 37.6; O2SAT 98; BMI 26.2
--- NOTE | 2018-07-21 14:02 | ED.VISSUMM ---
- ER Visit Summary Date of Service: 07/21/18 Chief Complaint: Nausea, vomiting, diarrhea History of Present Illness: The patient is a 17 F nausea vomiting diarrhea since this morning. 46 episode of vomiting, last time at 7 AM. No hematemesis. Watery stools since then. Last time prior to arrival. No fevers. No belly pain. States was transient on antibiotic started 3 days ago when she was at urgent care for UTI concerns have was called the next day and told to stop this. States her culture was negative however she is still having dysuria, she could have this for 2 weeks. Reports back pain. Using Pyridium is helping her dysuria. Currently on menstrual period. Physical Examination: General: Alert and oriented ?3, no acute distress HEENT: Normocephalic, atraumatic. Moist mucosa membranes Neck: supple, nontender. Cardiovascular: Regular rate 96 and rhythm, no murmurs Respiratory: Normal breath sounds, symmetric, no distress Abdomen: Soft, nontender, nondistended Back: No CVA tenderness. Extremities: Nontender, no edema, pulses intact ?4 Neuro: no focal neurological deficits. Test Results: Urine notes leukocytes and white blood cells. Urine culture sent. CBC, BMP normal. HCG negative Emergency Department Course and Treatment: Patient vomiting diarrhea, initial triage heart rate is 120 on my evaluation is 96 patient moist mucosa membranes. She is nausea, IV is placed given fluids. Zofran given. Urine did note signs of infection. With continued symptoms for 2 weeks and reported negative cultures by urgent care, I did we send for culture. Order for Macrobid. She is on Pyridium. Further discussion, patient has a prescription for Macrobid at home. Discussed to continue this. HCG negative. Patient tolerating oral intake in the ED. Prescription for Zofran to use as needed. Attempted to obtain stools in the ED, however no stools were given. Follow-up as an outpatient. Treatment Plan: [] Disposition: Discharge Impression: 1. Urinary tract infection 2. Vomiting diarrhea This note was generated with [employer] dictation software. It may contain incorrect words, spelling, and punctuation that were not noted in review of the chart prior to signing ED Disposition - Plan for ED Patient: Disposition: Home or Assisted Living Diagnosis: UTI (urinary tract infection), Vomiting and diarrhea Instructions: ED Vomiting Diarrhea Nonspecific Ad, ED UTI Cystitis Female Prescriptions: Ondansetron [Zofran Odt] 4 mg PO Q8H PRN PRN #10 tablet PRN Reason: Nausea Referrals: Dustin Bryan MD [Primary Care Provider] - Additional Instructions: Continue your antibiotic and home and finish. Continue oral fluids. Follow up with your doctor.
[2018-07-21 14:46] LABS: Bacteria 0 SEEN /hpf (None Seen); Mucous, Urine 0 SEEN /hpf (<or=2+); Red Blood Cells-Urine 0 SEEN /hpf (0-5)
[2018-07-21] MEDS: 0.9% Normal Saline 1,000 ML 1000 ML IV (14:46)
[2018-07-21] MEDS: Ondansetron 4 MG/2 ML Vial IV (14:46)
[2018-07-21 14:51] LABS: Color, Urine Yellow (Yellow); Glucose, Dipstick Normal (Normal); Ketone-Dipstick 5 mg/dl (Negative); Leukocyte Esterase-Dipstick 25 /ul (Negative); Nitrite-Dipstick Negative (Negative); Occult Blood-Urine 50 /ul (Negative); Protein-Dipstick 15 mg/dl (Negative); Specific Gravity, Urine 1.025 (1.002-1.030); Urine Clarity Clear (Clear); Urine Urobilinogen Normal (Normal)
[2018-07-21 14:54] LABS: Internal QC Validated? YES +Cl - CLEAR BKGD; Pregnancy, Urine Negative Negative
[2018-07-21 15:03] LABS: Squamous Epithelial Cells - UA 0-5 SEEN /hpf (5-10); Urine Bilirubin Dipstick 1 mg/dL (Negative); White Blood Cells 10-25 SEEN /hpf (0-5)
[2018-07-21] MEDS: Nitrofurantoin Macrocrystals 100 MG Capsule PO (16:04)
[2018-07-21 16:05] LABS: Absolute Lymphocyte Count 0.69 X10^3/ul (0.83-4.51); Absolute Neutrophil Count 6.7 X10^3/uL (2.0-7.7); Basophil# 0.01 X10^3/uL; Basophil% 0.1 % (0-1); Hematocrit 36.3 % (37-47); Hemoglobin 12.1 g/dl (12.0-15.0); Lymphocyte # 0.69 X10^3/ul (4.0); Lymphocyte % 8.7 % (19-41); Mean Corp Hgb Conc 33.3 g/gl (32-36); Mean Corpuscular Hgb 29.5 pg (27.0-32.0); Mean Corpuscular Volume 88.5 fL (81-99); Mean Platelet Vol. 9.6 fl (6.2-12.0); Monocyte% 6.3 % (0-10); Neutrophil % 84.8 % (47-70); Platelet Count 235 K/mm3 (150-450); RBC Distribution Width CV 12.5 % (11.6-14.6); RBC Distribution Width SD 40.1 fl (35.1-43.9); White Blood Count 7.9 K/mm3 (4.4-11.0)
[2018-07-21 16:08] LABS: POSITIVE COUNT NO; POSITIVE DIFFERENTIAL NO; POSITIVE MORPHOLOGY NO
[2018-07-21 16:27] LABS: Anion Gap 7 (5-15); BUN 17 mg/dL (7-18); BUN/Creat Ratio 25.8 RATIO (10-20); Calcium,Total 8.1 mg/dL (8.5-10.1); Chloride 109 mmol/L (98-107); Creatinine, Serum 0.66 mg/dL (0.55-1.02); EST Glomerular Filtration Rate 122 mL/min (>60); Est Glom Filt Rate - Afr Amer 147 mL/min (>60); Estimated Creatinine Clearance 113.41 ml/min; Glucose 87 mg/dL (74-106); Potassium 3.8 mmol/L (3.5-5.1); Sodium Level 135 mmol/L (136-145)
[2018-07-21 16:44] VITALS: BP 100/58; PULSE 79; RESP 15; O2SAT 98
--- NOTE | 2018-07-21 16:46 | ED.RN ---
IV DC'ED, CATHETER INTACT, SMALL GAUZE DRESSING PLACED. DISCHARGE INSTRUCTIONS GIVEN TO AND REVIEWED WITH PATIENT, PATIENT DENIES QUESTIONS OR CONCERNS AND VOICES UNDERSTANDING OF DISCHARGE INSTRUCTIONS. PT AMBULATES OUT OF ROOM WITHOUT DIFFICULTY.
== END 2018-07-21 16:47 | disposition home or self-care (01) ==
PROVIDERS: Emergency Provider Emergency Medicine; Family Provider Family Medicine; PCP Family Medicine
DX: N39.0 Urinary tract infection, site not specified (principal); R11.2 Nausea with vomiting, unspecified; R19.7 Diarrhea, unspecified; Z72.0 Tobacco use
CPT/HCPCS: 36415; 80048; 81001; 81025; 85025; 87086; 87088; 96361; 96374; 99285; J7030; A4216; J2405

== ENCOUNTER → 2020-05-04 16:58 | Outpatient (CLI) | payer BC, MEDICAID, SELFPAY ==
[2020-05-04 18:28] LABS: Amphetamine Urine VISTA NEGATIVE (<1000 ng/mL); Barbiturate Urine VISTA NEGATIVE (< 200 ng/mL); Benzodiazepine Urine VISTA NEGATIVE (< 200 ng/mL); Cocaine Urine VISTA NEGATIVE (< 300 ng/mL); Ecstacy Urine VISTA NEGATIVE (< 500 ng/mL); Methadone Urine VISTA NEGATIVE (< 300 ng/mL); PCP Urine VISTA NEGATIVE (< 25 ng/mL); THC Urine VISTA POSITIVE (< 50 ng/mL); Vista UDS pH Range 6
== END ==
PROVIDERS: Referring Provider Obstetrics & Gynecology; Visit Provider Obstetrics & Gynecology
DX: Z34.90 Encounter for supervision of normal pregnancy, unspecified, unspecified trimester (principal)
CPT/HCPCS: 80307; 87086; 87088

== ENCOUNTER → 2020-05-11 12:59 | Outpatient (CLI) | payer BC, MEDICAID, SELFPAY ==
[2020-05-11 13:08] VITALS: BP 111/65; PULSE 80; RESP 16; TEMP 37.1; O2SAT 97; BMI 28.0
[2020-05-11] MEDS: Dextrose 5%-Lactated Ringers 1,000 ML 999 ML IV (13:27)
[2020-05-11] MEDS: 0.9% NaCl Peripheral Flush Adult/Peds IV ×2 (13:27→14:39)
[2020-05-11] MEDS: Ondansetron 4 MG/2 ML Vial IV (14:39)
[2020-05-11 14:48] VITALS: BP 100/63; PULSE 69; RESP 16; TEMP 37; O2SAT 98
== END ==
PROVIDERS: Referring Provider Obstetrics & Gynecology; Visit Provider Obstetrics & Gynecology
DX: E86.0 Dehydration (principal)
CPT/HCPCS: 96361; 96374; 96375; A4216; J2405

== ENCOUNTER → 2020-05-25 12:16 | Outpatient (CLI) | payer BC, MEDICAID, SELFPAY ==
[2020-05-11 13:08] VITALS: BMI 28.0
[2020-05-25 12:49] LABS: Absolute Lymphocyte Count 1.65 X10^3/uL (0.83-4.51); Absolute Neutrophil Count 6.6 X10^3/uL (2.0-7.7); Basophil# 0.02 X10^3/uL; Basophil% 0.2 % (0-1); Eosinophil# 0.05 X10^3/uL; Eosinophils% 0.6 % (0-5); Hematocrit 37.4 % (37-47); Hemoglobin 12.8 g/dL (12.0-15.0); Lymphocyte # 1.65 X10^3/ul (4.0); Lymphocyte % 18.8 % (19-41); Mean Corp Hgb Conc 34.2 g/dL (32-36); Mean Corpuscular Hgb 30.8 pg (27.0-32.0); Mean Corpuscular Volume 90.1 fL (81-99); Mean Platelet Vol. 10.1 fl (6.2-12.0); Monocyte# 0.48 X10^3/uL; Monocyte% 5.5 % (0-10); NRBC Flagged by Analyzer 0 % (0-5); Neutrophil # 6.55 X10^3/uL (2.7-7.7); Neutrophil % 74.7 % (47-70); Platelet Count 317 K/mm3 (150-450); RBC Distribution Width CV 11.9 % (11.6-14.6); RBC Distribution Width SD 39.4 fl (35.1-43.9); Red Blood Count 4.15 M/mm3 (4.2-5.4); White Blood Count 8.8 K/mm3 (4.4-11.0)
[2020-05-25 14:01] LABS: HIV - WCH Non-Reactive (Nonreactive); Hepatitis B Surface Antigen Non-Reactive (Nonreactive); Hepatitis C Antibody Non-Reactive (Nonreactive); Rubella IgG Reactive (Nonreactive)
[2020-05-27 15:38] LABS: V-Zoster IgG (Immunity) 2181 index (Immune >165)
[2020-05-28 01:40] LABS: Rapid Plasmin Reagin (RPR) NONREACTIVE (NONREACTIVE)
== END ==
LOC: LAB 12:19 → PAVLAB 12:29
PROVIDERS: Visit Provider Obstetrics & Gynecology
DX: Z34.90 Encounter for supervision of normal pregnancy, unspecified, unspecified trimester (principal)
CPT/HCPCS: 36415; 85025; 86592; 86703; 86762; 86787; 86803; 86850; 86900; 86901; 87340

== ENCOUNTER → 2020-06-29 12:58 | Outpatient (CLI) | payer MEDICAID, SELFPAY ==
[2020-06-29 09:06] VITALS: BMI 27.9
== END ==
PROVIDERS: Referring Provider Nurse Practitioner Women's Health; Visit Provider Nurse Practitioner Women's Health
DX: O23.40 Unspecified infection of urinary tract in pregnancy, unspecified trimester (principal); Z3A.00 Weeks of gestation of pregnancy not specified
CPT/HCPCS: 87086; 87088

== ENCOUNTER → 2020-07-24 09:54 | Outpatient (CLI) | payer MEDICAID, SELFPAY ==
[2020-07-09 13:32] VITALS: BMI 28.7
--- NOTE | 2020-07-24 09:57 | ECHOD_ITS ---
Reason For Study: Dyspnea/SOB Procedure This was a 2D Doppler, Color Flow transthoracic echocardiogram. The study was technically difficult. Exam performed in department. Left Ventricle Normal LV size. Left ventricular systolic function is normal. The estimated ejection fraction is 60 %. No evidence for diastolic dysfunction. No regional wall motion abnormalities noted. Right Ventricle Normal RV size. Normal systolic function. Atria Normal left atrium. Normal right atrium. No doppler evidence for ASD. Mitral Valve There is no mitral annular calcification. Normal mitral valve. Mild (1+) eccentric mitral valve insufficiency. Tricuspid Valve Normal tricuspid valve. Mild tricuspid valve insufficiency. Right ventricular systolic pressure estimated to be 16 mmHg. Aortic Valve Trisinus/trileaflet aortic valve. Normal aortic valve. Pulmonic Valve The pulmonic valve is not well visualized. Great Vessels The aortic root is not well visualized. Pericardium/Pleural No pericardial effusion. MMode/2D Measurements & Calculations LVIDd: 4.7 cm IVSd: 0.93 cm LA dimension: 3.3 cm LVIDs: 3.2 cm LVPWd: 1.1 cm FS: 32.3 % LAV(MOD-bp): 44.8 ml LA A4 area: 17.2 cm2 RA A4 area: 15.3 cm2 LAV(MOD-bp) Indexed: 24.7 ml/m2 LAV(MOD-sp2): 34.4 ml LAV(MOD-sp4): 45.1 ml Time Measurements MV dec time: 0.31 sec Doppler Measurements & Calculations MV E max edward: 77.0 cm/sec Lat Peak E' Edward: 20.3 cm/sec Med Peak E' Edward: 13.4 cm/sec MV A max edward: 36.6 cm/sec E/E' lat: 3.8 E/E' med: 5.7 MV E/A: 2.1 MV V2 max: 91.2 cm/sec MV P1/2t max edward: 91.2 cm/sec Ao V2 max: 114.7 cm/sec MV max P.3 mmHg MV P1/2t: 97.6 msec Ao max P.3 mmHg MV V2 mean: 44.9 cm/sec MV dec slope: 273.7 cm/sec2 MV mean P.99 mmHg MVA(P1/2t): 2.3 cm2 MV V2 VTI: 26.2 cm LV V1 max: 94.7 cm/sec PA V2 max: 88.6 cm/sec TR max edward: 182.0 cm/sec LV V1 max P.6 mmHg TR max P.3 mmHg ECHO/Echo Complete Interpretation Summary The study was technically difficult. Left ventricular systolic function is normal. The estimated ejection fraction is 60 %. Mild (1+) eccentric mitral valve insufficiency. Mild tricuspid valve insufficiency. Right ventricular systolic pressure estimated to be 16 mmHg. No evidence for diastolic dysfunction. Ordering Physician: Jaguar Thompson Referring Physician: Jaguar Thompson Performed By: Jose Roberto Huang RCS
== END ==
PROVIDERS: Referring Provider Internal Medicine Cardiovascular Disease; Visit Provider Internal Medicine Cardiovascular Disease
DX: R00.2 Palpitations (principal); I49.1 Atrial premature depolarization; I49.3 Ventricular premature depolarization
CPT/HCPCS: 93225; 93226; 93306

== ENCOUNTER → 2020-07-29 16:15 | Outpatient (CLI) | payer MEDICAID, SELFPAY ==
[2020-07-29 14:23] VITALS: BMI 30.2
[2020-07-29 16:55] LABS: Amphetamine Urine VISTA NEGATIVE (<1000 ng/mL); Barbiturate Urine VISTA NEGATIVE (< 200 ng/mL); Benzodiazepine Urine VISTA NEGATIVE (< 200 ng/mL); Cocaine Urine VISTA NEGATIVE (< 300 ng/mL); Ecstacy Urine VISTA NEGATIVE (< 500 ng/mL); Methadone Urine VISTA NEGATIVE (< 300 ng/mL); PCP Urine VISTA NEGATIVE (< 25 ng/mL); THC Urine VISTA POSITIVE (< 50 ng/mL); Vista UDS pH Range 6
[2020-07-29 18:21] LABS: Chlamydia Trachomatis by PCR Negative (Negative); Neisserai gonorrhoeae by PCR Negative (Negative); Probe Check PASS; Sample Adequacy Control PASS; Specimen Processing Control PASS
== END ==
PROVIDERS: Referring Provider Obstetrics & Gynecology; Visit Provider Obstetrics & Gynecology
DX: O99.320 Drug use complicating pregnancy, unspecified trimester (principal); F12.10 Cannabis abuse, uncomplicated; Z3A.00 Weeks of gestation of pregnancy not specified
CPT/HCPCS: 80307; 87491; 87591

== ENCOUNTER → 2020-08-11 16:05 | Outpatient (CLI) | payer MEDICAID, SELFPAY ==
[2020-08-11 15:23] VITALS: BMI 29.8
== END ==
PROVIDERS: Referring Provider Nurse Practitioner Women's Health; Visit Provider Nurse Practitioner Women's Health
DX: R30.9 Painful micturition, unspecified (principal)
CPT/HCPCS: 87086; 87088

== ENCOUNTER → 2020-08-20 16:09 | Outpatient (CLI) | payer MEDICAID, SELFPAY ==
[2020-08-24 07:06] LABS: Chlamydia By Nucleic Acid AMP Negative (Negative)
[2020-08-24 07:50] LABS: Gonococcus By Nucleic Acid AMP Negative (Negative)
== END ==
PROVIDERS: Referring Provider Nurse Practitioner Women's Health; Visit Provider Nurse Practitioner Women's Health
DX: Z11.3 Encounter for screening for infections with a predominantly sexual mode of transmission (principal); O26.892 Other specified pregnancy related conditions, second trimester; R10.2 Pelvic and perineal pain; O23.40 Unspecified infection of urinary tract in pregnancy, unspecified trimester; Z3A.00 Weeks of gestation of pregnancy not specified
CPT/HCPCS: 87070; 87086; 87205; 87491; 87591

== ENCOUNTER → 2020-09-10 12:10 | Outpatient (CLI) | payer MEDICAID, SELFPAY | PROVIDERS: Referring Provider Obstetrics & Gynecology; Visit Provider Obstetrics & Gynecology | DX: O26.899 Other specified pregnancy related conditions, unspecified trimester (principal); R10.2 Pelvic and perineal pain; Z3A.00 Weeks of gestation of pregnancy not specified | CPT/HCPCS: 87070; 87086; 87088; 87205 ==

== ENCOUNTER 2020-09-12 10:35 | Outpatient (CLI) | payer MEDICAID, SELFPAY ==
[2020-09-12 10:40] VITALS: BP 107/55; PULSE 78; TEMP 36.9
[2020-09-12 10:48] VITALS: BP 107/55; PULSE 78
[2020-09-12 10:50] VITALS: BMI 30.2
--- NOTE | 2020-09-12 20:53 | OB.TRI.PN_ITS ---
Progress Notes Date of Service: 09/12/20 Progress Note: Patient presents for triage evaluation secondary to decreased movement FHT: 130 Moderate variability reactive no decelerations category I tracing [place]: No regular contractions Assessment and plan: Decreased movement with gestational age appropriate 10 x 10 accelerations reactive NST, reassuring maternal and status patient discharged to home to follow-up as scheduled. See problem list details for additional plan information. Assessment & Plan Assessment/Plan (1) Decreased movements in third trimester: PLAN: nst done 09/12 appropriate for GA Procedures Urinary/Genital 52xxx-59xxx: 51271-32 non-stress test Interp
== END 2020-09-12 11:30 | disposition home or self-care (01) ==
LOC: WPOUT 10:38 → WP 10:39
PROVIDERS: Referring Provider Obstetrics & Gynecology; Visit Provider Obstetrics & Gynecology
DX: O36.8130 Decreased fetal movements, third trimester, not applicable or unspecified (principal); Z3A.00 Weeks of gestation of pregnancy not specified
CPT/HCPCS: 59025; 59050; 99218; G0378

== ENCOUNTER → 2020-09-15 09:08 | Outpatient (CLI) | payer MEDICAID, SELFPAY ==
[2020-09-12 10:50] VITALS: BMI 30.2
[2020-09-15 09:38] LABS: Absolute Lymphocyte Count 1.33 X10^3/uL (0.83-4.51); Absolute Neutrophil Count 7.6 X10^3/uL (2.0-7.7); Basophil# 0.01 X10^3/uL; Basophil% 0.1 % (0-1); Eosinophil# 0.05 X10^3/uL; Eosinophils% 0.5 % (0-5); Hematocrit 31.6 % (37-47); Hemoglobin 10.7 g/dL (12.0-15.0); Lymphocyte # 1.33 X10^3/ul (0.83-4.51); Mean Corp Hgb Conc 33.9 g/dL (32-36); Mean Corpuscular Hgb 30.7 pg (27.0-32.0); Mean Corpuscular Volume 90.8 fL (81-99); Monocyte# 0.43 X10^3/uL; Monocyte% 4.5 % (0-10); NRBC Flagged by Analyzer 0 % (0-5); Neutrophil # 7.59 X10^3/uL (2.7-7.7); Neutrophil % 80.2 % (47-70); Platelet Count 274 K/mm3 (150-450); RBC Distribution Width CV 12.3 % (11.6-14.6); RBC Distribution Width SD 40.6 fl (35.1-43.9); Red Blood Count 3.48 M/mm3 (4.2-5.4); White Blood Count 9.5 K/mm3 (4.4-11.0)
[2020-09-15 09:59] LABS: Glucose Challenge Gest 1H 50g 139 mg/dL (70-140)
== END ==
PROVIDERS: Referring Provider Obstetrics & Gynecology; Visit Provider Obstetrics & Gynecology
DX: Z34.00 Encounter for supervision of normal first pregnancy, unspecified trimester (principal)
CPT/HCPCS: 36415; 82950; 85025

== ENCOUNTER → 2020-09-22 07:04 | Outpatient (CLI) | payer MEDICAID, SELFPAY ==
[2020-09-15 09:30] VITALS: BMI 30.2
[2020-09-22 07:54] LABS: Glucose GTT-Gestation. Fasting 83 mg/dL (<105)
[2020-09-22 08:55] LABS: Glucose GTT-Gestational 1 Hr 166 mg/dL (<190)
[2020-09-22 10:00] LABS: Glucose GTT-Gestational 2 Hr 119 mg/dL (<165)
[2020-09-22 10:51] LABS: Glucose GTT-Gestational 3 Hr 103 L (<145)
== END ==
PROVIDERS: Referring Provider Obstetrics & Gynecology; Visit Provider Obstetrics & Gynecology
DX: Z13.1 Encounter for screening for diabetes mellitus (principal)
CPT/HCPCS: 36415; 82951; 82952

== ENCOUNTER → 2020-10-16 11:32 | Outpatient (CLI) | payer MEDICAID, SELFPAY ==
[2020-10-16 10:11] VITALS: BMI 29.5
[2020-10-16 12:09] LABS: ROM Internal Control Test YES-OK TO RESULT pt. (Internal QC); ROM Patient Test Negative (Negative)
== END ==
PROVIDERS: Visit Provider Obstetrics & Gynecology
DX: N89.8 Other specified noninflammatory disorders of vagina (principal)
CPT/HCPCS: 84112

== ENCOUNTER 2020-11-04 13:40 | Outpatient (CLI) | payer MEDICAID, SELFPAY ==
[2020-10-30 09:50] VITALS: BMI 29.6
[2020-11-04] VITALS (10 sets, daily range): BP systolic 104–127; BP diastolic 59–78; PULSE 74–99; TEMP 36.9; O2SAT 98–99; BMI 29.5
== END 2020-11-04 15:00 | disposition home or self-care (01) ==
LOC: LAB 13:46 → WP 13:50
PROVIDERS: Referring Provider Obstetrics & Gynecology; Visit Provider Obstetrics & Gynecology
DX: E86.0 Dehydration (principal)
CPT/HCPCS: 59025; 59050; 99218; G0378

== ENCOUNTER 2020-11-04 15:05 | Emergency (ER) | payer MEDICAID, SELFPAY ==
[2020-10-30 09:50] VITALS: BMI 29.6
[2020-11-04 15:07] VITALS: BP 95/49; PULSE 75; RESP 18; TEMP 36.1; O2SAT 98; BMI 29.6
--- NOTE | 2020-11-04 15:22 | EKG12_ITS ---
Test Reason : SOB Blood Pressure : / mmHG Vent. Rate : 060 BPM Atrial Rate : 060 BPM P-R Int : 136 ms QRS Dur : 084 ms QT Int : 402 ms P-R-T Axes : 026 047 017 degrees QTc Int : 402 ms Normal sinus rhythm Normal ECG Confirmed by TATIANA RODRIGUEZ, CAROLINA ([id number]), health editor MAK MONTENEGRO ([id number]) on 11/09/2020 12:53:42 PM Referred By: DOLLY Confirmed By:CAROLINA SIMPSON MD
--- NOTE | 2020-11-04 15:29 | NURSING ---
NO OLD EKGS
[2020-11-04 15:43] VITALS: O2SAT 98
--- NOTE | 2020-11-04 15:45 | EDS_ITS ---
HPI History of Present Illness Chief Complaint: Shortness of Breath Informant: patient Narrative Narrative: 19-year-old female states that she is 35 weeks . She states that she called her doctor's office because since yesterday she has been having low back pain that is moving up her back. She also notes a headache that is new since yesterday. And since yesterday she has had about 30 seconds of palpitations followed by dyspnea. She states the dyspnea can last anywhere from a few minutes to 30 minutes. Then her symptoms resolve for several hours. She originally called EMS they brought her to the hospital where she was cleared by OB and not found to have any signs of imminent delivery. The patient notes the back pain is now mostly in the mid thoracic region. It is worse with any type of movement. She notes that she wore a Holter monitor and an event monitor earlier in the was found to have an episode of nonsustained ventricular tachycardia. 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 Thompson patient denies any chest pain.. [facility] Medical History Abnormal glucose affecting Arrhythmia Heart palpitations History of oligohydramnios Marijuana abuse NSVT (nonsustained ventricular tachycardia) Premature atrial contraction Premature ventricular contraction Supervision of normal first UTI (urinary tract infection), affecting care of mother, antepartum Ventricular ectopy Home Medications vit,[id number] 1 tab PO DAILY 05/11/20 [History Last Taken 09/12/20 09:30] sertraline 50 mg tablet 50 mg PO DAILY #30 tab 09/10/20 [Rx Last Taken 09/11/20 23:00] ondansetron 4 mg disintegrating tablet 4 mg PO Q4H PRN #60 tab 09/30/20 [Rx Last Taken Unknown] famotidine [Pepcid] 20 mg PO DAILY 11/04/20 [History Last Taken Unknown] Allergy/AdvReac Type Severity Reaction Status Date / Time No Known Allergies Allergy Verified 11/04/20 15:10 Family History Brother CVA (cerebral vascular accident) Grandfather Cardiac pacemaker in situ Other Melanoma Social History Smoking Status: Current every day smoker tobacco type: cigarettes alcohol intake: never substance use type: does not use caffeine: Yes what type of physical activity do you participate in: walking frequency: 3-4 times per week seatbelt use: always do you feel safe at home: Yes additional social history: Boyfriend-Jackson ROS ROS ED Constitutional Constitutional ED: Denies chills or weight loss Eyes Eyes: Denies change in vision or diplopia ENT ENT ED: Denies ear pain, rhinorrhea or sore throat Cardiovascular Cardiovascular: Reports palpitations; Denies chest pain, orthopnea or racing heartbeat Respiratory/Chest Respiratory/Chest: Reports dyspnea; Denies cough or orthopnea Gastrointestinal Gastrointestinal: Denies abdominal pain, diarrhea, nausea or vomiting Genitourinary Genitourinary ED: Denies dysuria, hematuria or urinary frequency Musculoskeletal Musculoskeletal: Reports back pain; Denies arthralgias or myalgias Integumentary Denies abscess or rash Neurologic Neurologic: Denies headache(s) or weakness Psychiatric Psychiatric: Denies anxiety, depression, suicidal ideation or suicidal thoughts Endocrine Endocrinology: Denies polydipsia, polyphagia or polyuria Allergic/Immunologic Allergic/Immunologic ED: Denies mouth swelling, tongue swelling or urticaria EXAM Physical Exam Const Vital Signs: 11/04/20 15:07 11/04/20 15:43 11/04/20 15:55 Temperature 97 F L Temperature Source Temporal Pulse Rate 75 90 Respiratory Rate 18 20 H Respiratory Effort Normal Respiratory Depth Normal Respiratory Pattern Normal Blood Pressure 95/49 L 100/69 Blood Pressure Mean 64 79 Pulse Ox 98 100 Oxygen Delivery Method Room Air Room Air Room Air Positive well nourished and well developed General Appearance ED: well developed HEENT Reports normocephalic, head/scalp atraumatic and moist mucous membranes Eyes PERRL and EOMs intact bilaterally Neck no lymphadenopathy, supple and no JVD Resp normal respiratory effort and clear to auscultation bilaterally Cardio regular rate, regular rhythm and no murmurs GI normal to inspection, nondistended, normoactive bowel sounds and non-tender Palpation: soft Narrative: Gravid uterus Back/Spine no CVA tenderness and normal ROM Back/Spine Narrative: Scale or tenderness in the midthoracic region of the back. There is also some tenderness in the lower lumbar region. Her pain is reproducible with palpation and movement. No tissue texture changes to suggest underlying infection Extremity normal to inspection General Extremety ED: Negative for edema General Extremity: Negative for edema Neuro oriented x3 and CN's II-XII intact bilaterally Sensorium / Orientation: alert Motor Exam: strength 5/5 throughout Psych mental status grossly normal Mood & Affect: Negative for depressed or tearful Skin no rashes or lesions noted and no wounds MDM MDM MDM Narrative Medical decision making narrative: Patient's had no events on the monitor her hemoglobin is 9.9 which I believe is a physiologic anemia of . Troponin negative. Electrolytes are in check. I believe the patient's back pain is musculoskeletal in nature. She has had an extensive work-up at multiple facilities for her palpitations. I do not believe she has PE as she has no tachycardia or hypoxia and her symptoms are intermittent. Her headache was given Reglan and Benadryl. I am hesitant to give any narcotics for her concern for rebound headache. Patient to follow-up with her LAY OUT HELPER and return if worsening or concerns Lab Data Attestation: I reviewed the patient's lab results. Labs: Laboratory Results - last 24 hr 11/04/20 11/04/20 15:40 15:40 WBC 8.0 RBC 3.31 L Hgb 9.9 L Hct 30.2 L MCV 91.2 MCH 29.9 MCHC 32.8 RDW Std Deviation 41.8 RDW Coeff of Rebecca 12.5 Plt Count 278 MPV 11.1 Immature Gran % (Auto) 0.600 Neut % (Auto) 69.1 Lymph % (Auto) 22.3 [place] % (Auto) 6.7 Eos % (Auto) 1.2 Baso % (Auto) 0.1 Absolute Neuts (auto) 5.6 Absolute Lymphs (auto) 1.79 Nucleated RBC % 0 Sodium 136 Potassium 3.6 Chloride 107 Carbon Dioxide 23.0 Anion Gap 6 BUN 6 L Creatinine 0.47 L Estim Creat Clear Calc 156.63 Est GFR (MDRD) Af Amer 211 Est GFR (MDRD) Non-Af 174 BUN/Creatinine Ratio 12.7 Glucose 80 Calcium 8.4 L Total Bilirubin 0.40 AST 20 ALT 23 Alkaline Phosphatase 183 H Troponin I High Sens < 3.0 L Total Protein 6.1 L Albumin 2.6 L Globulin 3.5 Albumin/Globulin Ratio 0.7 L EKG Initial EKG: Attestation: I personally reviewed and interpreted this EKG as follows: Comments: EKG demonstrates a normal sinus rhythm at a rate of 60 bpm. No concerning features of ACS or ectopy noted. Discharge Plan Triage Chief Complaint: Shortness of Breath ED Provider: Duke Boykin Dx/Rx/DC Orders Clinical Impression: Heart palpitations, Dyspnea, Back pain affecting in third trimester Instructions: Preg Back Wall Stretch Body Bend, ED Palpitations Prescriptions: No Action sertraline 50 mg tablet 50 mg PO DAILY Qty: 30 RF: 6 vit,[id number] 1 TABLET tablet 1 tab PO DAILY RF: 0 famotidine [Pepcid] 20 mg Tablet 20 mg PO DAILY RF: 0 ondansetron 4 mg tablet,disintegrating 4 mg PO Q4H PRN (Reason: nausea and vomiting) Qty: 60 RF: 2 Referrals: EDWIGE LEE [Other] Disposition Disposition: Home, Self Care
[2020-11-04] MEDS: Metoclopramide 10 MG/2 ML Vial IV (15:51)
[2020-11-04] MEDS: DiphenhydrAMINE 50 MG/ML Syringe 25 MG IV (15:51)
[2020-11-04 15:55] VITALS: BP 100/69; PULSE 90; RESP 20; O2SAT 100
[2020-11-04 16:01] LABS: Absolute Lymphocyte Count 1.79 X10^3/uL (0.83-4.51); Absolute Neutrophil Count 5.6 X10^3/uL (2.0-7.7); Basophil# 0.01 X10^3/uL; Basophil% 0.1 % (0-1); Eosinophils% 1.2 % (0-5); Hematocrit 30.2 % (37-47); Hemoglobin 9.9 g/dL (12.0-15.0); Lymphocyte # 1.79 X10^3/ul (0.83-4.51); Lymphocyte % 22.3 % (19-41); Mean Corp Hgb Conc 32.8 g/dL (32-36); Mean Corpuscular Hgb 29.9 pg (27.0-32.0); Mean Corpuscular Volume 91.2 fL (81-99); Mean Platelet Vol. 11.1 fl (6.2-12.0); Monocyte# 0.54 X10^3/uL; Monocyte% 6.7 % (0-10); NRBC Flagged by Analyzer 0 % (0-5); Neutrophil # 5.55 X10^3/uL (2.7-7.7); Neutrophil % 69.1 % (47-70); Platelet Count 278 K/mm3 (150-450); RBC Distribution Width CV 12.5 % (11.6-14.6); RBC Distribution Width SD 41.8 fl (35.1-43.9); Red Blood Count 3.31 M/mm3 (4.2-5.4)
[2020-11-04 16:23] LABS: ALB/GLOB Ratio 0.7 RATIO (0.9-2.4); AST(SGOT) 20 U/L (15-37); Alanine Aminotransfer ALT/SGPT 23 U/L (13-56); Albumin, Serum 2.6 g/dL (3.2-5.0); Alkaline Phosphatase 183 U/L (45-117); Anion Gap 6 (5-15); BUN 6 mg/dL (7-18); BUN/Creat Ratio 12.7 RATIO (10-20); Calcium,Total 8.4 mg/dL (8.5-10.1); Chloride 107 mmol/L (98-107); Creatinine, Serum 0.47 mg/dL (0.55-1.02); EST Glomerular Filtration Rate 174 mL/min (>60); Est Glom Filt Rate - Afr Amer 211 mL/min (>60); Estimated Creatinine Clearance 156.63 ml/min; Globulin 3.5 g/dL (2.2-4.2); Glucose 80 mg/dL (74-106); Potassium 3.6 mmol/L (3.5-5.1); Protein, Total 6.1 g/dL (6.4-8.2); Sodium Level 136 mmol/L (136-145); Troponin-I HS < 3.0 pg/mL (3.0-53.7)
[2020-11-04 16:46] VITALS: BP 109/64; PULSE 71; RESP 16; O2SAT 98
== END 2020-11-04 16:47 | disposition home or self-care (01) ==
PROVIDERS: Emergency Provider Emergency Medicine
DX: O26.893 Other specified pregnancy related conditions, third trimester (principal); O99.323 Drug use complicating pregnancy, third trimester; O99.891 Other specified diseases and conditions complicating pregnancy; R00.2 Palpitations; R06.00 Dyspnea, unspecified; M54.5 Low back pain; F12.10 Cannabis abuse, uncomplicated; F17.210 Nicotine dependence, cigarettes, uncomplicated; E86.0 Dehydration; Z3A.35 35 weeks gestation of pregnancy; Z79.899 Other long term (current) drug therapy
CPT/HCPCS: 59025; 59050; 80053; 84484; 85025; 93005; 96374; 96375; 99218; 99284; A4216; G0378

== ENCOUNTER 2020-11-05 19:35 | Outpatient (CLI) | payer MEDICAID, SELFPAY ==
[2020-11-05 19:45] VITALS: BMI 29.5
[2020-11-05 19:49] VITALS: BP 108/59; PULSE 80
[2020-11-05 19:55] VITALS: BMI 30.4
[2020-11-05 20:31] LABS: ROM Internal Control Test YES-OK TO RESULT pt. (Internal QC); ROM Patient Test Negative (Negative)
--- NOTE | 2020-11-06 08:43 | OB.TRI.PN ---
Progress Notes Date of Service: 11/05/20 Progress Note: Patient presents for triage evaluation secondary to loss of fluid. ROM was negative. Cervix is closed thick and high. Patient was having occasional contractions but was not uncomfortable contractions. FHT: Moderate variability reactive no decelerations category I tracing [place]: q3-6 min Contractions Assessment and plan: Reactive NST, reassuring maternal and status patient discharged to home to follow-up at next schedule visit. See problem list details for additional plan information. Laboratory Studies: Laboratory Tests 11/05/20 Range/Units 19:55 Vag Amniotic Fld Detect Negative (Negative) Charges/Coding Procedures Urinary/Genital 52xxx-59xxx: 80355-02 non-stress test Interp
== END 2020-11-05 20:47 | disposition home or self-care (01) ==
LOC: WPOUT 19:47 → WP 19:48
PROVIDERS: Visit Provider Obstetrics & Gynecology
DX: O47.9 False labor, unspecified (principal); Z3A.00 Weeks of gestation of pregnancy not specified
CPT/HCPCS: 59025; 59050; 84112; 99218; G0378

== ENCOUNTER 2020-11-06 17:23 | Outpatient (CLI) | payer MEDICAID, SELFPAY ==
[2020-11-05 19:55] VITALS: BMI 30.4
[2020-11-06 17:35] VITALS: BP 109/60; PULSE 111; PULSE 112; TEMP 37.3; O2SAT 97
[2020-11-06 17:57] VITALS: BMI 29.7
[2020-11-06] MEDS: Lactated Ringers 1,000 ML 999 ML IV (18:20)
[2020-11-06] MEDS: Acetaminophen 500 MG Tablet 1000 MG PO (18:26)
[2020-11-06 18:34] LABS: Color, Urine Yellow (Yellow); Glucose, Dipstick Normal (Normal); Ketone-Dipstick 5 mg/dl (Negative); Leukocyte Esterase-Dipstick 25 /ul (Negative); Nitrite-Dipstick Negative (Negative); Occult Blood-Urine Negative /ul (Negative); Protein-Dipstick 15 mg/dl (Negative); Specific Gravity, Urine 1.025 (1.002-1.030); Urine Bilirubin Dipstick Negative (Negative); Urine Clarity Clear (Clear); Urine Urobilinogen 1 mg/dl (Normal)
[2020-11-06 18:38] LABS: Absolute Lymphocyte Count 1.79 X10^3/uL (0.83-4.51); Absolute Neutrophil Count 5.6 X10^3/uL (2.0-7.7); Basophil# 0.02 X10^3/uL; Basophil% 0.3 % (0-1); Eosinophil# 0.06 X10^3/uL; Eosinophils% 0.8 % (0-5); Hematocrit 29.9 % (37-47); Lymphocyte # 1.79 X10^3/ul (0.83-4.51); Lymphocyte % 22.4 % (19-41); Mean Corp Hgb Conc 33.4 g/dL (32-36); Mean Corpuscular Hgb 29.9 pg (27.0-32.0); Mean Corpuscular Volume 89.5 fL (81-99); Mean Platelet Vol. 10.9 fl (6.2-12.0); Monocyte# 0.54 X10^3/uL; Monocyte% 6.8 % (0-10); NRBC Flagged by Analyzer 0 % (0-5); Neutrophil # 5.55 X10^3/uL (2.7-7.7); Neutrophil % 69.4 % (47-70); Platelet Count 283 K/mm3 (150-450); RBC Distribution Width CV 12.5 % (11.6-14.6); RBC Distribution Width SD 40.5 fl (35.1-43.9); Red Blood Count 3.34 M/mm3 (4.2-5.4)
[2020-11-06 18:42] LABS: Fibrinogen 381 mg/dl (203-444); Partial Thromboplast Time 25.5 Seconds (24.1-36.2); Prothrombin Time (Protime)PT. 12.7 SECONDS (11.7-14.9)
--- NOTE | 2020-11-06 19:56 | OB.TRI.PN_ITS ---
Progress Notes Date of Service: 11/06/20 Progress Note: Patient presents for triage evaluation secondary to lower abdominal pain radiating to her back, contractions, and headache. HINES resolved with tylenol. Cervix closed. UA showed evidence of UTI - keflex sent to pharmacy. FHT: Moderate variability reactive no decelerations category I tracing [place]: Irregular Contractions Assessment and plan: Reactive NST, reassuring maternal and status patient discharged to home to follow-up at next scheduled visit. See problem list details for additional plan information. Laboratory Studies: Laboratory Tests 11/06/20 11/06/20 11/06/20 Range/Units 18:20 18:20 18:20 WBC 8.0 (4.4-11.0) K/mm3 RBC 3.34 L (4.2-5.4) M/mm3 Hgb 10.0 L (12.0-15.0) g/dL Hct 29.9 L (37-47) % MCV 89.5 (81-99) fL MCH 29.9 (27.0-32.0) pg MCHC 33.4 (32-36) g/dL RDW Std Deviation 40.5 (35.1-43.9) fl RDW Coeff of Rebecca 12.5 (11.6-14.6) % Plt Count 283 (150-450) K/mm3 MPV 10.9 (6.2-12.0) fl Immature Gran % (Auto) 0.300 (0.0-0.9) % Neut % (Auto) 69.4 (47-70) % Lymph % (Auto) 22.4 (19-41) % [place] % (Auto) 6.8 (0-10) % Eos % (Auto) 0.8 (0-5) % Baso % (Auto) 0.3 (0-1) % Absolute Neuts (auto) 5.6 (2.0-7.7) X10^3/uL Absolute Lymphs (auto) 1.79 (0.83-4.51) X10^3/uL Nucleated RBC % 0 (0-5) % PT 12.7 (11.7-14.9) SECONDS INR 1.0 APTT 25.5 (24.1-36.2) Seconds Fibrinogen 381 (203-444) mg/dl Urine Color Yellow (Yellow) Urine Clarity Clear (Clear) Urine pH 6.0 (5.0 - 8.0) Ur Specific [place] 1.025 (1.002-1.030) Urine Protein 15 H (Negative) mg/dl Urine Glucose (UA) Normal (Normal) mg/dl Urine Ketones 5 H (Negative) mg/dl Urine Occult Blood Negative (Negative) /ul Urine Nitrite Negative (Negative) Urine Bilirubin Negative (Negative) mg/dL Urine Urobilinogen 1 H (Normal) mg/dl Ur Leukocyte Esterase 25 H (Negative) /ul Charges/Coding Multi Select Codes Urinary/Genital Urinary/Genital CPT Codes: 73200-87 non-stress test Interp
[2020-11-06 20:09] VITALS: BP 103/53; PULSE 73; TEMP 36.2
[2020-11-06] MEDS: Cephalexin 500 MG Capsule PO (20:42)
== END 2020-11-06 20:55 | disposition home or self-care (01) ==
LOC: WPOUT 17:32 → WP 17:33
PROVIDERS: Referring Provider Obstetrics & Gynecology; Visit Provider Obstetrics & Gynecology
DX: O26.899 Other specified pregnancy related conditions, unspecified trimester (principal); R10.30 Lower abdominal pain, unspecified; R51.9 Headache, unspecified; Z3A.00 Weeks of gestation of pregnancy not specified
CPT/HCPCS: 96365; 36415; 59025; 59050; 81002; 85025; 85384; 85610; 85730; 87086; 87088; 99218; J7120; G0378

== ENCOUNTER → 2020-11-09 11:50 | Outpatient (CLI) | payer MEDICAID, SELFPAY ==
[2020-10-16 10:11] VITALS: BMI 29.5
[2020-11-06 17:57] VITALS: BMI 29.7
--- NOTE | 2020-11-09 11:52 | US_ITS ---
STUDY: SECOND AND THIRD TRIMESTER OBSTETRICAL ULTRASOUND - LIMITED REASON FOR EXAM: Female, 20 years old oligohydramnios @ 36 weeks LMP: 03/01/2020. PRIOR ULTRASOUND: None. TECHNIQUE: Transabdominal TECHNICAL QUALITY: Adequate. FINDINGS: There is a single intrauterine fetus. The fetus is in a cephalic presentation. There is demonstrated cardiac activity with a heart rate of 127 bpm. There is a normal amniotic fluid volume. The largest amniotic fluid pocket measures 6.7 cm. The amniotic fluid index (DESMOND) is 14.4 cm. The placenta is fundal in location. There are Grade 2 placental changes. The cervix measures 3.22 cm in length. BIOMETRY: BPD: 8.89 cm: 35 weeks, 6 days HC: 32.96 cm: 37 weeks, 3 days AC: 31.7 cm: 35 weeks, 4 days FL: 6.74 sinus: 34 weeks, 4 days Age by LMP: 36 weeks, 1 days. DAY by LMP: 12/06/2020. age by current US: 36 weeks, 4 days. DAY by current US: 12/03/2020. Estimated weight: 2704 grams, +/- 406 grams, 36 percentile. US/OB Limited With Biometrics IMPRESSION: Single live uterine gestation with mean gestational age of 36 weeks and 4 days. Electronically Signed: Moo Brewer MD at 15:44 EDT , Service support ,
== END ==
PROVIDERS: Referring Provider Obstetrics & Gynecology; Visit Provider Obstetrics & Gynecology
DX: Z87.59 Personal history of other complications of pregnancy, childbirth and the puerperium (principal)
CPT/HCPCS: 76816

== ENCOUNTER → 2020-11-13 09:39 | Outpatient (CLI) | payer MEDICAID, SELFPAY ==
[2020-11-13 08:57] VITALS: BMI 29.7
== END ==
PROVIDERS: Visit Provider Obstetrics & Gynecology
DX: E86.0 Dehydration (principal)
CPT/HCPCS: 87081

== ENCOUNTER → 2020-11-20 10:36 | Outpatient (CLI) | payer MEDICAID, SELFPAY ==
[2020-11-20 09:15] VITALS: BMI 29.9
== END ==
PROVIDERS: Referring Provider Obstetrics & Gynecology; Visit Provider Obstetrics & Gynecology
DX: E86.0 Dehydration (principal)
CPT/HCPCS: 87081

== ENCOUNTER 2020-12-04 19:25 | Inpatient (IN) | payer MEDICAID, SELFPAY ==
[2020-12-04] VITALS (46 sets, daily range): BP systolic 93–140; BP diastolic 51–81; PULSE 53–113; TEMP 36.2–37.6; O2SAT 81–100; BMI 29.9; BMI 29.3
[2020-12-04 10:25] LABS: ROM Internal Control Test YES-OK TO RESULT pt. (Internal QC); ROM Patient Test Negative (Negative)
[2020-12-04] MEDS: Acetaminophen 500 MG Tablet 1000 MG PO (17:55)
[2020-12-04] MEDS: Lactated Ringers 500 ML 999 ML IV ×2 (19:45→20:16)
[2020-12-04 20:25] LABS: Absolute Lymphocyte Count 2.65 X10^3/uL (0.83-4.51); Absolute Neutrophil Count 9.4 X10^3/uL (2.0-7.7); Basophil# 0.02 X10^3/uL; Basophil% 0.2 % (0-1); Eosinophil# 0.07 X10^3/uL; Eosinophils% 0.5 % (0-5); Hematocrit 36.5 % (37-47); Hemoglobin 11.9 g/dL (12.0-15.0); Lymphocyte # 2.65 X10^3/ul (0.83-4.51); Lymphocyte % 20.5 % (19-41); Mean Corp Hgb Conc 32.6 g/dL (32-36); Mean Corpuscular Hgb 29.8 pg (27.0-32.0); Mean Corpuscular Volume 91.5 fL (81-99); Mean Platelet Vol. 11.6 fl (6.2-12.0); Monocyte% 5.4 % (0-10); NRBC Flagged by Analyzer 0 % (0-5); Neutrophil # 9.43 X10^3/uL (2.7-7.7); Neutrophil % 72.9 % (47-70); Platelet Count 297 K/mm3 (150-450); RBC Distribution Width CV 12.9 % (11.6-14.6); RBC Distribution Width SD 42.7 fl (35.1-43.9); Red Blood Count 3.99 M/mm3 (4.2-5.4); White Blood Count 12.9 K/mm3 (4.4-11.0)
[2020-12-04] MEDS: Lactated Ringers 1,000 ML 200 ML IV ×2 (20:47→23:23)
[2020-12-04 21:17] LABS: Amphetamine Urine VISTA NEGATIVE (<1000 ng/mL); Barbiturate Urine VISTA NEGATIVE (< 200 ng/mL); Benzodiazepine Urine VISTA NEGATIVE (< 200 ng/mL); Cocaine Urine VISTA NEGATIVE (< 300 ng/mL); Ecstacy Urine VISTA NEGATIVE (< 500 ng/mL); Methadone Urine VISTA NEGATIVE (< 300 ng/mL); PCP Urine VISTA NEGATIVE (< 25 ng/mL); THC Urine VISTA NEGATIVE (< 50 ng/mL); Vista UDS pH Range 6
[2020-12-04] MEDS: fentaNYL-bupivacaine (epidural) 100 ML BAG EPIDURAL (21:32)
[2020-12-04] MEDS: Oxytocin 30 units/NS 500 ml 30 UNITS/500 ML IV.SOLN 334 UNITS IV (23:43)
[2020-12-04] MEDS: Methylergonovine 0.2 MG/ML Ampul IM (23:46)
[2020-12-04] MEDS: Carboprost Tromethamine 250 MCG/ML Ampul IM (23:48)
[2020-12-05] VITALS (21 sets, daily range): BP systolic 87–137; BP diastolic 49–79; PULSE 48–83; RESP 16–18; TEMP 36.1–36.9; O2SAT 93–98
--- NOTE | 2020-12-05 00:07 | HP.PCM.OB_ITS ---
HPI - General General Date of Admission: 12/04/20 HPI Narrative SHAKEEL KENT, is a 20 F who presents IAL may change to 4 to 5 cm. Patient denies any vaginal bleeding but is now ruptured with clear fluid Maternal Data Information DAY Calculator Estimated Delivery Date Method Current WG Current Estimate 12/06/20 LMP (Certain) 39w 6d Other Estimates 12/01/20 Ultrasound #1 40w 4d PFSH PFSH Medical History (Updated 12/05/20 @ 00:[address] Carol Anderson MD) Abnormal glucose affecting Anxiety Arrhythmia Depression Heart palpitations History of oligohydramnios Marijuana abuse NSVT (nonsustained ventricular tachycardia) depression Premature atrial contraction Premature ventricular contraction Supervision of normal first UTI (urinary tract infection), affecting care of mother, antepartum Ventricular ectopy Home Medications vit,[id number] 1 tab PO DAILY 05/11/20 [History Last Taken 12/04/20] ondansetron 4 mg disintegrating tablet 4 mg PO Q4H PRN #60 tab 09/30/20 [Rx Last Taken 12/04/20] famotidine [Pepcid] 20 mg PO PRN PRN 11/04/20 [History Last Taken 11/05/20 20:00] promethazine 12.5 mg PO PRN PRN 12/04/20 [History Last Taken Unknown] sertraline 50 mg PO DAILY 12/04/20 [History Last Taken 12/03/20] Allergy/AdvReac Type Severity Reaction Status Date / Time No Known Allergies Allergy Verified 11/27/20 09:26 Family History Brother CVA (cerebral vascular accident) Grandfather Cardiac pacemaker in situ Other Melanoma Social History Smoking Status: Heavy Smoker (>10/day) alcohol intake: never substance use type: does not use caffeine: Yes what type of physical activity do you participate in: walking frequency: 3-4 times per week seatbelt use: always do you feel safe at home: Yes additional social history: Boyfriend-Jackson History 2 Elective abortions Hx Para 1 Spontaneous abortions Hx # Term Pregnancies 1 Ectopic pregnancies Hx # Pregnancies Multiple births # of living children 1 Past Pregnancies Del. Date Name GA/Weeks Outcome Route Bth Weight Infant Gen Labor Lgth Anesthesia Del Pietro Provider FOB 01/16/16 Je 40 live - full term 6lb 6oz Male 24 hours e pidural [facility] Sami Delivery Date: 01/16/16 IOL for [place], reports abruption during induction Katiana Katz Visit Details Expected Delivery Route/Plan Labor Preferences- CB/BF classes: no labor support person: Jackson labor intervention preferences: open to standard interventions pain management options preferred: epidural cut cord/dad catch: maybe cord : yes PP control planned: NFP discussed possible routes of delivery and associated risks: discussed possible delivery modalities and possible indications for each including R/B/A of , VAVD, FAVD, and CS. questions answered. special requests: none Plans flu vaccine:declined tdap vaccine: given rhogam: NA LARC form signed: yes Problem list reviewed and updated with the most current plan of care details and appropriate orders placed. Relevant counseling for the gestational age provided. Continue routine care and follow up unless otherwise noted in visit notes/problem list details OB Flowsheet Initial Weight: Not Recorded Date -?-?-?-?-?-?-?-?-?-?-?-?- EGA Weight BP Urine Prot -?-?-?-?-?-?-?-?-?-?-?-?- Glucose FHR FuHt Pres Dilation -?-?-?-?-?-?-?-?-?-?-?-?- Effaced St Visit Note 05/04/20 -?-?-?-?-?-?-?-?-?-?-?-?- 9w 1d 167 lb 8 oz 124/78 -?-?-?-?-?-?-?-?-?-?-?-?- 160 -?-?-?-?-?-?-?-?-?-?-?-?- GP - CRL 26mm co nsistent with LMP. 06/05/20 -?-?-?-?-?-?-?-?-?-?-?-?- 13w 5d 166 lb 122/70 Negative -?-?-?-?-?-?-?-?-?-?-?-?- Negative 160 -?-?-?-?-?-?-?-?-?-?-?-?- SM- no vb lof so me cramping and nausea, vomiting. ordered pepcid 06/29/20 -?-?-?-?-?-?-?-?-?-?-?-?- 17w 1d 168 lb 100/58 -?-?-?-?-?-?-?-?-?-?-?-?- 155 -?-?-?-?-?-?-?-?-?-?-?-?- MH- NO VB, LOF. Recent refill of agustín not dissolvable and not working as well. Refill dissolvable sent. Pepcid helpful. Anatomy US 07/13. Repeat urine culture today. 07/29/20 -?-?-?-?-?-?-?-?-?-?-?-?- 21w 3d 176 lb 2 oz 108/60 -?-?-?-?-?-?-?-?-?-?-?-?- 150 -?-?-?-?-?-?-?-?-?-?-?-?- GP - no cramping or bleeding. Anatomy normal. 08/11/20 -?-?-?-?-?-?-?-?-?-?-?-?- 23w 2d 174 lb Negative -?-?-?-?-?-?-?-?-?-?-?-?- Negative 148 -?-?-?-?-?-?-?-?-?-?-?-?- MH-work in for u rinary frequency and urgency. No VB. Good FM. Pos UA dip, Rx sent. Culture pending 08/20/20 -?-?-?-?-?-?-?-?-?-?-?-?- 24w 4d 118/72 Negative -?-?-?-?-?--?-?-?-?-?-?-?- Negative 154 -?-?-?-?-?-?-?-?-?-?-?-?- MH-work in for v aginal burning. States had pain last night RUQ then moved to LUQ and now pressure lower abdomen. UA negative. NO VB, LOF. NO CTX. Good FM. GRETTA BV, GCC and comp vaginal culture-call positive only. If pain returns, to ED for evaluation/US. Enc to take pepcid for her reflux. 08/24/20 -?-?-?-?-?-?-?-?-?-?-?-?- 25w 1d 175 lb 110/60 Negative -?-?-?-?-?-?-?-?-?-?-?-?- Negative 135 25 -?-?-?-?-?-?-?-?-?-?-?-?- SM- no vb lof go od fm no regular ctx 09/10/20 -?-?-?-?-?-?-?-?-?-?-?-?- 27w 4d 170 lb 4 oz 100/74 2+ -?-?-?-?-?-?-?-?-?-?-?-?- Negative 140 27 0 -?-?-?-?-?-?-?-?-?-?-?-?- GP - work in for pelvic pain and mucous discharge with scant blood. Also having significant depression and anxiety. Seeing a counselor. Started on zoloft. Discussed IOP if needs more intensive tx 09/15/20 -?-?-?-?-?-?-?-?-?-?-?-?- 28w 2d 168 lb 102/70 Negative -?-?-?-?-?-?-?-?-?-?-?-?- Negative 137 28 0 -?-?-?-?-?-?-?-?-?-?-?-?- -States pink dc with wiping. On zoloft X 5 days and notes some shakiness. Reassured and will decrease with time. States less anxious. Cervix closed, no blood in vault. Good FM. GCT pending. Will start FE for anemia. tdap and larc 09/22/20 -?-?-?-?-?-?-?-?-?-?-?-?- 29w 2d 168 lb 132/80 Negative -?-?-?-?-?-?-?-?-?-?--?-?- Negative 140 29 0 -?-?-?-?-?-?-?-?-?-?-?-?- SM- no lof no re gular ctx SM- no lof no regular ctx, s een monday at [facility], had us that was normal.3 hr gtt today 09/30/20 -?-?-?-?-?-?-?-?-?-?-?-?- 30w 3d 168 lb 4 oz 120/66 Nega tive -?-?-?-?-?-?-?-?-?-?-?-?- Negative 145 30 -?-?-?-?-?-?--?-?-?-?-?-?- MH-No Vb, LOF. G ood FM. Taking FE. 10/16/20 -?-?-?-?-?-?-?-?-?-?-?-?- 32w 5d 166 lb 6 oz 110/60 Nega tive -?-?-?-?-?-?-?-?-?-?-?-?- Negative 140 32 -?-?-?-?-?-?-?-?-?-?-?-?- SM- no vb lof go od fm no regular ctx 10/30/20 -?-?-?-?-?-?-?-?-?-?-?-?- 34w 5d 167 lb 6 oz 98/72 Nega tive -?-?-?-?-?-?-?-?-?-?-?-?- Negative 125 34 -?-?-?-?-?-?-?-?-?-?-?-?- GP - no LOF, VB, DFM, ctx. Discussed labor preferences and routes of delivery. 11/13/20 -?-?-?-?-?-?-?-?-?-?-?-?- 36w 5d 168 lb 122/66 -?-?-?-?-?-?-?-?-?-?-?-?- 130 36 -?-?-?-?-?-?-?-?-?-?-?-?- SM- no vb lof go od fm no regular ctx gbs today 11/20/20 -?-?-?-?-?-?-?-?-?-?-?-?- 37w 5d 169 lb 116/74 Negative -?-?-?-?-?-?-?-?-?-?-?-?- Negative 130 37 Cephalic 1 -?-?-?-?-?-?-?-?-?-?-?-?- 50 -3 GP - no LO F, VB, DFM, ctx. Discussed treatment of migraines - phenergan prescribed and recommend daily magnesium 11/27/20 -?-?-?-?-?-?-?-?-?-?-?-?- 38w 5d 114/80 -?-?-?-?-?-?-?-?-?-?-?-?- 130 38 Cephalic -?-?-?-?-?-?-?-?-?-?-?-?- SM- no vb lof go od fm nor egular ctx 12/04/20 -?-?-?-?-?-?-?-?-?-?-?-?- 39w 5d 167 lb 124/80 Negative -?-?-?-?-?-?-?-?-?-?-?-?- Negative 135 39 Cephalic 2 -?-?-?-?-?-?-?--?-?-?-?-?- 60 -4 0 Sm- no vb lof g ood fm nro egular ctx bedside melvin 6.5 cm, rpeat next week. membranes swept but cervix still firm and posterior 12/04/20 -?-?-?-?-?-?-?-?-?-?--?-?- 39w 5d 165 lb 12.602 oz 105 /62 108/57 118/71 122/67 112/58 112/67 103/63 99/51 93/54 99/57 98/56 102/57 104/57 124/76 110/63 115/72 120/59 118/67 119/66 118/57 105/54 140/81 123/59 119/58 134/69 -?-?-?-?-?-?-?-?-?-?-?-?- -?-?-?-?-?-?-?-?-?-?-?-?- NST FHR Rate Baby A Baseline: 140 Variability:: Moderate Accelerations:: 15 x 15 Decelerations:: None NST Reactive:: Yes FHR Category:: Category I Uterine Activity:: q3-5 ROS Constitutional Constitutional: Reports systems reviewed and no addt'l complaints, except as documented ENT HEENT: Reports systems reviewed and no addt'l complaints, except as documented Cardiovascular Cardiovascular: Reports systems reviewed and no addt'l complaints, except as documented Respiratory/Chest Respiratory/Chest: Reports systems reviewed and no addt'l complaints, except as documented Gastrointestinal Gastrointestinal: Reports systems reviewed and no addt'l complaints, except as documented and nausea; Denies abdominal pain Genitourinary Genitourinary: Reports systems reviewed and no addt'l complaints, except as documented, contractions Details: present and frequency (regular ) and movement Details: present Musculoskeletal Musculoskeletal: Reports systems reviewed and no addt'l complaints, except as documented Integumentary Integumentary: Reports as per HPI Neurologic Neurologic: Reports systems reviewed and no addt'l complaints, except as documented Endocrine Endocrinology: Reports systems reviewed and no addt'l complaints, except as documented Vital Signs Vital Signs Vital Signs: 12/04/20 17:30 12/04/20 17:43 12/04/20 17:48 Temperature Temperature Source Pulse Rate 80 66 69 Blood Pressure 105/62 BP Systolic 105 BP Diastolic 62 Pulse Ox 97 98 12/04/20 20:25 12/04/20 20:27 12/04/20 20:59 Temperature 99.3 F H Temperature Source Temporal Pulse Rate 53 L Blood Pressure 108/57 L BP Systolic 108 BP Diastolic 57 Pulse Ox 99 98 12/04/20 21:00 12/04/20 21:04 12/04/20 21:05 Temperature Temperature Source Pulse Rate 62 62 65 Blood Pressure 118/71 122/67 H BP Systolic 118 122 BP Diastolic 71 67 Pulse Ox 100 12/04/20 21:09 12/04/20 21:10 12/04/20 21:14 Temperature Temperature Source Pulse Rate 69 Blood Pressure 112/58 L BP Systolic 112 BP Diastolic 58 Pulse Ox 100 100 12/04/20 21:15 12/04/20 21:19 12/04/20 21:20 Temperature Temperature Source Pulse Rate 76 88 85 Blood Pressure 112/67 103/63 BP Systolic 112 103 BP Diastolic 67 63 Pulse Ox 100 12/04/20 21:24 12/04/20 21:26 12/04/20 21:29 Temperature Temperature Source Pulse Rate 87 79 75 Blood Pressure 99/51 L BP Systolic 99 BP Diastolic 51 Pulse Ox 100 100 12/04/20 21:30 12/04/20 21:34 12/04/20 21:39 Temperature Temperature Source Pulse Rate 69 68 Blood Pressure 93/54 L 99/57 L BP Systolic 93 99 BP Diastolic 54 57 Pulse Ox 100 100 12/04/20 21:40 12/04/20 21:44 12/04/20 21:49 Temperature Temperature Source Pulse Rate 74 72 85 Blood Pressure 98/56 L 102/57 L 104/57 L BP Systolic 98 102 104 BP Diastolic 56 57 57 Pulse Ox 100 100 12/04/20 21:50 12/04/20 21:54 12/04/20 21:55 Temperature 99.6 F H Temperature Source Temporal Pulse Rate 79 62 Blood Pressure 124/76 H 110/63 BP Systolic 124 110 BP Diastolic 76 63 Pulse Ox 100 12/04/20 21:59 12/04/20 22:00 12/04/20 22:04 Temperature Temperature Source Pulse Rate 81 76 63 Blood Pressure 115/72 120/59 L BP Systolic 115 120 BP Diastolic 72 59 Pulse Ox 100 100 12/04/20 22:09 12/04/20 22:14 12/04/20 22:19 Temperature Temperature Source Pulse Rate 78 70 Blood Pressure 118/67 BP Systolic 118 BP Diastolic 67 Pulse Ox 100 100 81 12/04/20 22:39 12/04/20 22:40 12/04/20 22:41 Temperature Temperature Source Pulse Rate 80 Blood Pressure 119/66 BP Systolic 119 BP Diastolic 66 Pulse Ox 82 100 12/04/20 22:45 12/04/20 22:47 12/04/20 22:50 Temperature Temperature Source Pulse Rate 77 68 Blood Pressure 118/57 L BP Systolic 118 BP Diastolic 57 Pulse Ox 100 100 08/06/21 22:51 12/04/20 22:55 12/04/20 22:56 Temperature Temperature Source Pulse Rate 64 83 113 H Blood Pressure 105/54 L 140/81 H BP Systolic 105 140 BP Diastolic 54 81 Pulse Ox 100 12/04/20 23:02 12/04/20 23:04 12/04/20 23:12 Temperature 97.1 F L Temperature Source Temporal Pulse Rate 85 81 Blood Pressure 123/59 H BP Systolic 123 BP Diastolic 59 Pulse Ox 83 96 12/04/20 23:49 12/05/20 00:00 12/05/20 00:04 Temperature Temperature Source Pulse Rate 86 73 72 Blood Pressure 119/58 L 134/69 H BP Systolic 119 134 BP Diastolic 58 69 Pulse Ox 96 94 12/05/20 00:05 Temperature Temperature Source Pulse Rate 77 Blood Pressure BP Systolic BP Diastolic Pulse Ox 95 Weight Weight: 165 lb 12.602 oz Body Mass Index (BMI) 29.3 Physical Exam Const alert, oriented x3 and healthy appearing Constitutional Narrative: uncomfortable with contractions HEENT normocephalic and moist oral mucous membranes Head and Scalp: atraumatic Neck full ROM, no lymphadenopathy, supple and thyroid normal General: trachea midline Thyroid: thyroid normal Lymph Lymphatic: no lymphadenopathy noted Chest inspection of chest normal Resp normal respiratory effort Cardio regular rate GI normal to inspection, nondistended, normoactive bowel sounds, soft to palpation and non-tender Inspection: gravid external exam normal Bimanual Exam - Vag & Uterus: uterus non-tender Manual OB Exam: estimated gestational size appropriate, presentation cephalic, dilated, effaced and station Extremity normal to inspection General Extremity: Negative for edema Skin no rashes or lesions noted Neuro deep tendon reflexes 2+ bilaterally Motor Exam: strength 5/5 throughout and clonus absent Psych mental status grossly normal Labs Labs Labs: Blood Type A POSITIVE Antibody Screen NEGATIVE Hct 36.5 % (37-47) L Hgb 11.9 g/dL (12.0-15.0) L Obstetrics US VZV IgG Antibody 2181 index (Immune >165) Rubella IgG Antibody Reactive (Nonreactive) Hep Bs Antigen Non-Reactive (Nonreactive) Neisseria gonorrhoeae DNA (NELSON) Negative (Negative) HIV 1&2 Antibody Non-Reactive (Nonreactive) C.trachomatis DNA (PCR) Negative (Negative) Glucose 1 Hr 50 gm 139 mg/dL (70-140) Rhogam given: No Assessment & Plan (1) GBS (group B streptococcus) UTI complicating : COMMENT: 08/18/20 treated, plan PCN in labor (2) Anemia affecting : COMMENT: start FE (3) Abnormal glucose affecting : COMMENT: nl 3 hr GTT (4) Ventricular ectopy: COMMENT: PAC/PVC with palpitations. s/p cardio cs and holter monitor. has taken meds in past. (5) NSVT (nonsustained ventricular tachycardia): COMMENT: Holter monitor per [facility] (6) UTI (urinary tract infection), affecting care of mother, antepartum: COMMENT: + at NOB; Treated again 08/10(GBS). Sx again 09/10 - neg culture (7) History of oligohydramnios: COMMENT: growth us at 36 weeks (8) : QUALIFIERS: Weeks of gestation: 39 weeks Qualified Code(s): Z3A.39 - 39 weeks gestation of COMMENT: Declined genetic, carrier, AFP, NL anatomy scan GBS NEGATIVE (9) Supervision of normal first : QUALIFIERS: Trimester: second trimester Qualified Code(s): Z34.02 - Encounter for supervision of normal first , second trimester COMMENT: PRR DAY 12/06/20 boy Sven PC: Je BF: Jackson (10) Marijuana abuse: COMMENT: +tox at NOB- needs random tox; +07/29 (11) Active labor at term: PLAN: Admit active labor epidural expectant management
--- NOTE | 2020-12-05 00:10 | OP.PCM_ITS ---
Assessment & Plan (1) Active labor at term: (2) GBS (group B streptococcus) UTI complicating : COMMENT: 08/18/20 treated, plan PCN in labor (3) Anemia affecting : COMMENT: start FE (4) Abnormal glucose affecting : COMMENT: nl 3 hr GTT (5) NSVT (nonsustained ventricular tachycardia): COMMENT: Holter monitor per [facility] (6) : QUALIFIERS: Weeks of gestation: 39 weeks Qualified Code(s): Z3A.39 - 39 weeks gestation of COMMENT: Declined genetic, carrier, AFP, NL anatomy scan GBS NEGATIVE (7) Supervision of normal first : QUALIFIERS: Trimester: second trimester Qualified Code(s): Z34.02 - Encounter for supervision of normal first , second trimester COMMENT: PRR DAY 12/06/20 alexandra Machuca PC: Je BF: Jackson (8) Marijuana abuse: COMMENT: +tox at NOB- needs random tox; +07/29 (9) UTI (urinary tract infection), affecting care of mother, antepartum: COMMENT: + at NOB; Treated again 08/10(GBS). Sx again 09/10 - neg culture (10) Atony of uterus without hemorrhage: (11) Vaginal delivery: COMMENT: IADL SM alexandra Machuca 39 Maternal Data Information DAY Calculator Estimated Delivery Date Method Current WG Current Estimate 12/06/20 LMP (Certain) 39w 6d Other Estimates 12/01/20 Ultrasound #1 40w 4d Vaginal Delivery Maternal Presentation Maternal Presentation: Active Labor Maternal Presentation: ial Operative Information Date of Procedure: 12/05/20 Pre-Operative Diagnosis: IAL Post-Operative Diagnosis: same Surgery / Procedure Performed: Spontaneous Vaginal Delivery Type of Anesthesia: Epidural (ineffective) Special Medications: none Estimated Blood Loss: 100 Fluids Replaced: crystalloid Findings Description of Procedure: Patient began pushing and delivered the head in the JEET presentation. The head was delivered atraumatically . The anterior and posterior shoulders delivered without complication followed by the rest of the infant and the infant was placed on the maternal abdomen. Delayed cord clamping was employed for approximately 60 seconds. Cord was clamped and cut and gentle traction was applied to the cord and the placenta delivered spontaneously immediately following it was noted to be intact with three-vessel cord. The perineum and vagina were inspected and noted to have no laceration. She did have uterine atony afterwards that was treated with Pitocin and bimanual massage Methergine and Hemabate EBL was 300 cc. Patient and tolerated delivery well. Presentation: JEET Amniotic Membrane Rupture Type: Spontaneous Amniotic Fluid Description: Clear Placental Delivery Description: Spontaneous Placenta Disposition: [facility] Cord Vessel Description: 3 Vessels Cord Entanglement: None Infant A Gender: Male Delayed Cord Clamping: Yes Post Vaginal Delivery Medications Given After Delivery: IV Pitocin, IM Methergin and IM Hemabate Episiotomy Description: None Laceration: None Complication Complications: None Procedures Urinary/Genital [id number]: [id number] Vaginal Delivery+ Care([facility])
[2020-12-05] MEDS: Ondansetron 4 MG/2 ML Vial IV (00:11)
--- NOTE | 2020-12-05 00:15 | PCM.DC ---
Discharge Instructions Diet Discharge Diet: No restrictions Activity Discharge Activity: Return to Normal Activity, May Not Drive (while taking narcotic pain medications.) and May Shower May resume sexual activity in: 4-6 weeks Dressing / Incision Call your doctor if your incision/area has: Continuous Slow Oozing, Sudden Increased Bleeding, Increased Pain/ Swelling, Increased Redness and Foul Smelling Discharge Follow Up Care Please Follow Up With: Carol Anderson MD When: Call [phone] to make an appointment with your doctor in 6 weeks. If you had elevated blood pressure or 4th degree laceration, you will need to be seen in 2 weeks. Test Results: Test results from this visit will be discussed in further detail at your follow-up appointment, if applicable. Discharge Plan Admission Admit Date/Time: 12/04/20 19:25 Primary Reason for Your Visit: Vaginal delivery Attending Provider: Carol Anderson Discharge Orders/Prescriptions Prescriptions: New naproxen 250 MG tablet 250 - 500 mg PO Q8H PRN PRN (Reason: MILD PAIN) Qty: 30 RF: 1 Continued vit,[id number] 1 TABLET tablet 1 tab PO DAILY RF: 0 famotidine [Pepcid] 20 mg Tablet 20 mg PO PRN PRN (Reason: Heartburn) RF: 0 promethazine 12.5 mg tablet 12.5 mg PO PRN PRN (Reason: headache) RF: 0 sertraline 50 mg tablet 50 mg PO DAILY RF: 0 ondansetron 4 mg tablet,disintegrating 4 mg PO Q4H PRN (Reason: nausea and vomiting) Qty: 60 RF: 2 Referrals / Follow Up: EDWIGE LEE [Other] Disposition Disposition (needs filled in before D/C Order can be placed): Home, Self Care
[2020-12-05] MEDS: Naproxen 500 MG Tablet PO (01:00)
[2020-12-05] MEDS: Sertraline 50 MG Tablet PO (08:07)
[2020-12-05] MEDS: Acetaminophen 500 MG Tablet 1000 MG PO (08:08)
--- NOTE | 2020-12-05 09:49 | PCM.PN.OB ---
Subjective Subjective Patient doing well without complaints. Tolerating PO. Ambulating and voiding without difficulty. Breast feeding well. Denies chest pain, shortness of breath, calf pain/swelling, fevers, chills, lightheadedness. Objective Data Objective Data Vital Signs: Vital Signs Temp Pulse Resp BP Pulse Ox 97.8 F 62 16 103/55 L 97 12/05/20 08:01 12/05/20 08:01 12/05/20 08:01 12/05/20 08:01 12/05/20 01:35 Oxygen Delivery Method Room Air Weight: 165 lb 12.602 oz Body Mass Index (BMI) 29.3 Intake & Output: Intake and Output for Last 24 Hours 12/03/20 12/04/20 12/05/20 23:59 23:59 23:59 Intake Total 1681.67 / 1681.67 500 / 500 Output Total 800 / 800 Balance 881.67 / 881.67 500 / 500 Lab / Micro Data Result Diagrams: 12/04/20 19:45 Labs: Laboratory Results - last 24 hr 12/04/20 09:40: Vag Amniotic Fld Detect Negative 12/04/20 19:45: WBC 12.9 H, RBC 3.99 L, Hgb 11.9 L, Hct 36.5 L, MCV 91.5, MCH 29.8, MCHC 32.6, RDW Std Deviation 42.7, RDW Coeff of Rebecca 12.9, Plt Count 297, MPV 11.6, Immature Gran % (Auto) 0.500, Neut % (Auto) 72.9 H, Lymph % (Auto) 20.5, [place] % (Auto) 5.4, Eos % (Auto) 0.5, Baso % (Auto) 0.2, Absolute Neuts (auto) 9.4 H, Absolute Lymphs (auto) 2.65, Nucleated RBC % 0 12/04/20 19:45: Blood Type A POSITIVE, Antibody Screen NEGATIVE 12/04/20 20:40: Urine Opiates Screen NEGATIVE, Urine Methadone Screen NEGATIVE, Ur Barbiturates Screen NEGATIVE, Ur Phencyclidine Scrn NEGATIVE, Ur Amphetamines Screen NEGATIVE, U Methamphetamin-MDMA NEGATIVE, U Benzodiazepines Scrn NEGATIVE, Urine Cocaine Screen NEGATIVE, U Cannabinoids Screen NEGATIVE, Ur Drug Screen Comment Micro: Microbiology 12/04/20 20:10 Mucosa - Nose SARS-CoV-2 Antigen (Rapid) - Final ROS Constitutional Constitutional: Denies fever(s) Cardiovascular Cardiovascular: Denies chest pain, dyspnea or lightheadedness Gastrointestinal Gastrointestinal: Reports abdominal pain; Denies constipation or diarrhea Neurologic Neurologic: Denies dizziness or headache(s) Physical Exam Const alert, oriented x3, no apparent distress, average body habitus, healthy appearing and well nourished HEENT normocephalic Head and Scalp: atraumatic Eyes PERRL and EOMs intact bilaterally Neck full ROM Lymph Lymphatic: no lymphadenopathy noted Resp normal respiratory effort, no retractions and no use of accessory muscles Cardio regular rate GI soft to palpation, non-tender and non-distended Palpation: other Other Details: fundus firm Extremity normal to inspection and no clubbing, cyanosis or edema Skin no rashes or lesions noted Neuro no focal motor deficits and no sensory deficits noted Psych mental status grossly normal, affect normal and speech normal Assessment & Plan (1) Vaginal delivery: COMMENT: IADDeja SM boy Sven 39 PLAN: s/p PPD # 1 1. routine post delivery care 2. breast feeding- support given 3. rh positive 4. rubella immune
--- NOTE | 2020-12-05 10:30 | NURSING ---
pt reports she has been up to void overnight
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
[2020-12-06] VITALS (7 sets, daily range): BP systolic 90–104; BP diastolic 49–58; PULSE 59–73; RESP 16–18; TEMP 36.4–36.9
[2020-12-06] MEDS: Naproxen 500 MG Tablet PO ×2 (00:31→09:13)
[2020-12-06] MEDS: Acetaminophen 500 MG Tablet 1000 MG PO (07:53)
[2020-12-06] MEDS: Sertraline 50 MG Tablet PO (07:53)
--- NOTE | 2020-12-06 10:24 | PCM.PN.OB ---
Subjective Subjective Patient doing well without complaints. Tolerating PO. Ambulating and voiding without difficulty. Breast feeding well. Denies chest pain, shortness of breath, calf pain/swelling, fevers, chills, lightheadedness. Objective Data Objective Data Vital Signs: Vital Signs Temp Pulse Resp BP Pulse Ox 98.0 F 59 L 16 90/49 L 97 12/06/20 07:43 12/06/20 07:46 12/06/20 07:43 12/06/20 07:46 12/05/20 01:35 Oxygen Delivery Method Room Air Weight: 165 lb 12.602 oz Body Mass Index (BMI) 29.3 Intake & Output: Intake and Output for Last 24 Hours 12/04/20 12/05/20 12/06/20 23:59 23:59 23:59 Intake Total 1681.67 / 1681.67 500 / 500 Output Total 800 / 800 300 / 300 Balance 881.67 / 881.67 200 / 200 Lab / Micro Data Result Diagrams: 12/04/20 19:45 Micro: Microbiology 12/04/20 20:10 Mucosa - Nose SARS-CoV-2 Antigen (Rapid) - Final ROS Constitutional Constitutional: Denies fever(s) Cardiovascular Cardiovascular: Denies chest pain, dyspnea or lightheadedness Gastrointestinal Gastrointestinal: Reports abdominal pain; Denies constipation or diarrhea Neurologic Neurologic: Denies dizziness or headache(s) Physical Exam Const alert, oriented x3, no apparent distress, average body habitus, healthy appearing and well nourished HEENT normocephalic Head and Scalp: atraumatic Eyes PERRL and EOMs intact bilaterally Neck full ROM Lymph Lymphatic: no lymphadenopathy noted Resp normal respiratory effort, no retractions and no use of accessory muscles Cardio regular rate GI soft to palpation, non-tender and non-distended Palpation: other Other Details: fundus firm Extremity normal to inspection and no clubbing, cyanosis or edema Skin no rashes or lesions noted Neuro no focal motor deficits and no sensory deficits noted Psych mental status grossly normal, affect normal and speech normal Assessment & Plan (1) Vaginal delivery: COMMENT: IADL SM boy Sven 39 PLAN: s/p PPD # 2 1. routine post delivery care 2. breast feeding- support given 3. rh positive 4. rubella immune
--- NOTE | 2020-12-11 14:42 | CM.ED ---
AMA Note: SW called [facility] in [place] and left message for patient's therapist, Miryam Gomez. SW advised that this signwriter had met with patient on the weekend and patient had reported some Post Depression in her past and also psych hospitalizations. SW explained that patient had been referred to [facility] by this signwriter. SW wanted therapist to be updated. SW said that a call back is not necessary. However, SW did provided call back number. No further SW services at this time. Miroslava NORWOOD
== END 2020-12-06 12:50 | disposition home or self-care (01) | DRG 560 ==
LOC: WPOUT 19:30 → WP 19:30
PROVIDERS: Admitting Provider Obstetrics & Gynecology; Visit Provider Obstetrics & Gynecology
DX: O99.824 Streptococcus B carrier state complicating childbirth (principal); Z3A.39 39 weeks gestation of pregnancy; Z37.0 Single live birth; O99.324 Drug use complicating childbirth; F12.10 Cannabis abuse, uncomplicated; O99.344 Other mental disorders complicating childbirth; F41.9 Anxiety disorder, unspecified; F32.9 Major depressive disorder, single episode, unspecified; Z79.899 Other long term (current) drug therapy; F17.200 Nicotine dependence, unspecified, uncomplicated; O99.334 Smoking (tobacco) complicating childbirth; O62.2 Other uterine inertia
CPT/HCPCS: 80307; 84112; 85025; 86850; 86900; 86901; 87426; 99218; J7120; G0378; J2405

== ENCOUNTER → 2021-01-18 15:30 | Outpatient (CLI) | payer MEDICAID, SELFPAY ==
[2021-01-25 16:32] LABS: HPV APTIMA, High Risk Negative (Negative); HPV Reflexed? YES, CHARGE PATIENT
== END ==
PROVIDERS: Referring Provider Obstetrics & Gynecology; Visit Provider Obstetrics & Gynecology
DX: Z12.4 Encounter for screening for malignant neoplasm of cervix (principal)
CPT/HCPCS: 87624; 88175; G0145

== ENCOUNTER → 2021-04-07 10:06 | Outpatient (CLI) | payer MEDICAID, SELFPAY ==
--- NOTE | 2021-04-07 10:18 | RAD_ITS ---
STUDY: X-RAY CHEST REASON FOR EXAM: Female, 20 years old. SOB TECHNIQUE: PA and lateral views of the chest. COMPARISON: 11/17/2016. FINDINGS: The lungs are clear and expanded. There is no demonstrated pleural abnormality. Normal size heart. Normal mediastinum and genaro. Normal visualized pulmonary arteries. Normal visualized aortic arch and descending thoracic aorta. Normal visualized thoracic spine. Normal visualized ribs, clavicles, and shoulders. There is no demonstrated abnormality of the visualized soft tissue structures of the upper abdomen. RAD/Chest PA and Lateral IMPRESSION: Normal x-ray examination of the chest. Electronically Signed: Deon Lynch MD at 19:11 EST Tel , Service support ,
[2021-04-07 12:00] LABS: Anion Gap 7 (5-15); BNP,B-Type NATRIURETIC PEPTIDE 13.7 pg/mL (0-100); BUN 15 mg/dL (7-18); BUN/Creat Ratio 19.2 RATIO (10-20); Calcium,Total 9.1 mg/dL (8.5-10.1); Chloride 105 mmol/L (98-107); Creatinine, Serum 0.78 mg/dL (0.55-1.02); EST Glomerular Filtration Rate 98 mL/min (>60); Est Glom Filt Rate - Afr Amer 118 mL/min (>60); Glucose 100 mg/dL (74-106); Potassium 3.8 mmol/L (3.5-5.1); Sodium Level 140 mmol/L (136-145)
== END ==
PROVIDERS: Nurse Practitioner Family; Referring Provider Internal Medicine Cardiovascular Disease; Visit Provider Internal Medicine Cardiovascular Disease
DX: R06.00 Dyspnea, unspecified (principal); I49.3 Ventricular premature depolarization; R06.02 Shortness of breath; R00.2 Palpitations
CPT/HCPCS: 36415; 71046; 80048; 83880; 84443

== ENCOUNTER → 2021-04-16 13:42 | Outpatient (CLI) | payer MEDICAID, SELFPAY | PROVIDERS: Referring Provider Nurse Practitioner Family; Visit Provider Nurse Practitioner Family | DX: R06.00 Dyspnea, unspecified (principal); R06.02 Shortness of breath | CPT/HCPCS: 93225; 93226 ==

== ENCOUNTER → 2021-04-21 08:40 | Outpatient (CLI) | payer MEDICAID, SELFPAY ==
--- NOTE | 2021-04-21 08:47 | ECHOD_ITS ---
Reason For Study: DYSPNEA Procedure This was a 2D Doppler, Color Flow transthoracic echocardiogram. The exam was of adequate technical quality. Exam performed in department. Left Ventricle Normal LV size. Left ventricular systolic function is normal. The estimated ejection fraction is 55 %. No evidence for diastolic dysfunction. No regional wall motion abnormalities noted. Right Ventricle Normal RV size. Normal systolic function. Atria Normal left atrium. Normal right atrium. No doppler evidence for ASD. Mitral Valve There is no mitral annular calcification. Mild mitral valve prolapse, posterior leaflet. Mild (1+) mitral valve insufficiency. Tricuspid Valve Normal tricuspid valve. Mild tricuspid valve insufficiency. Right ventricular systolic pressure estimated to be 18 mmHg. Aortic Valve Trisinus/trileaflet aortic valve. Normal aortic valve. Pulmonic Valve The pulmonic valve is not well visualized. Trivial pulmonic valve insufficiency. Great Vessels Normal sized aortic root. Pericardium/Pleural No pericardial effusion. MMode/2D Measurements & Calculations LVIDd: 5.2 cm IVSd: 0.63 cm Ao root diam: 2.8 cm LVIDs: 3.7 cm LVPWd: 0.77 cm RVDd: 3.8 cm FS: 28.9 % LAV(MOD-bp): 50.4 ml LVAd ap4: 29.8 cm2 SV(MOD-sp4): 48.4 ml LAV(MOD-bp) Indexed: 29.4 ml/m2 LVLd ap4: 7.8 cm LAV(MOD-sp2): 43.7 ml EDV(MOD-sp4): 97.9 ml LAV(MOD-sp4): 52.0 ml EDV(sp4-el): 96.2 ml LVAs ap4: 19.2 cm2 LVLs ap4: 6.3 cm ESV(MOD-sp4): 49.5 ml ESV(sp4-el): 49.5 ml EF(MOD-sp4): 49.4 % EF(sp4-el): 48.6 % SV(sp4-el): 46.7 ml LA A4 area: 19.0 cm2 LA dimension(2D): 3.2 cm RA A4 area: 12.9 cm2 Doppler Measurements & Calculations MV E max edward: 84.8 cm/sec Lat Peak E' Edward: 19.8 cm/sec Med Peak E' Edward: 12.1 cm/sec MV A max edward: 33.5 cm/sec E/E' lat: 4.3 E/E' med: 7.0 MV E/A: 2.5 Ao V2 max: 105.8 cm/sec LV V1 max: 81.8 cm/sec PA V2 max: 72.3 cm/sec Ao max P.5 mmHg LV V1 max P.7 mmHg TR max edward: 190.3 cm/sec TR max P.5 mmHg ECHO/Echo Complete Interpretation Summary Left ventricular systolic function is normal. The estimated ejection fraction is 55 %. Mild mitral valve prolapse, posterior leaflet Mild (1+) mitral valve insufficiency. Mild tricuspid valve insufficiency. Trivial pulmonic valve insufficiency. Right ventricular systolic pressure estimated to be 18 mmHg. No evidence for diastolic dysfunction. Ordering Physician: Henry Hernandez Referring Physician: Henry Hernandez Performed By: Kaia Smith, RDCS, RVT
--- NOTE | 2021-04-21 09:04 | EKG12_ITS ---
Test Reason : PALPS Blood Pressure : / mmHG Vent. Rate : 062 BPM Atrial Rate : 062 BPM P-R Int : 104 ms QRS Dur : 090 ms QT Int : 396 ms P-R-T Axes : 055 053 044 degrees QTc Int : 401 ms Sinus rhythm with short WV Otherwise normal ECG Confirmed by MARISSA RODRIGUEZ, ALMA ([id number]), food expeditor MAK MONTENEGRO ([id number]) on 04/22/2021 11:36:47 AM Referred By: Henry Hernandez Confirmed By:ALMA ANN MD
== END ==
PROVIDERS: Referring Provider Nurse Practitioner Family; Visit Provider Nurse Practitioner Family
DX: R06.00 Dyspnea, unspecified (principal); R06.02 Shortness of breath; I49.3 Ventricular premature depolarization; R00.2 Palpitations
CPT/HCPCS: 93005; 93306

== ENCOUNTER 2021-09-15 19:39 | Emergency (ER) | payer MEDICAID, SELFPAY ==
[2021-09-15 19:39] VITALS: BP 115/83; PULSE 70; RESP 18; TEMP 36.1; O2SAT 98; BMI 28.0
[2021-09-15 20:05] VITALS: BP 126/79; PULSE 65; RESP 18; O2SAT 99
--- NOTE | 2021-09-15 20:54 | EKG12_ITS ---
Test Reason : DYSRHYTHMIA Blood Pressure : / mmHG Vent. Rate : 051 BPM Atrial Rate : 051 BPM P-R Int : 130 ms QRS Dur : 092 ms QT Int : 464 ms P-R-T Axes : 050 052 056 degrees QTc Int : 427 ms Sinus bradycardia Otherwise normal ECG Confirmed by JAYESH RODRIGUEZ, RAY ([id number]), editor publications MAK MONTENEGRO ([id number]) on 09/17/2021 10:57:43 A M Referred By: PL Confirmed By:MALATHI MCCONNELL MD
--- NOTE | 2021-09-15 20:54 | CT_ITS ---
STUDY: CT BRAIN WITHOUT CONTRAST REASON FOR EXAM: Female, 20 years old. Cold feeling on the left side TECHNIQUE: Transaxial CT imaging of the brain was performed without administration of intravenous contrast material. Individualized dose optimization techniques were used for this CT. COMPARISON: None FINDINGS: Normal calvarium. Normal soft tissues. Normal size ventricles and extra-axial spaces for the patient''s age. Normal white matter tracts of the cerebral hemispheres. Normal basal ganglia and thalami. Normal brainstem. Normal cerebellum. There is no intracranial hemorrhage. There are no findings of an acute ischemic infarction. Normal visualized paranasal sinuses. ASPECTS 10 CT/Brain/Head without Contrast IMPRESSION: There are no acute intracranial findings. Electronically Signed: Giacomo Ontiveros MD at 21:42 EDT ,
--- NOTE | 2021-09-15 20:56 | EDS_ITS ---
HPI History of Present Illness Chief Complaint: General Illness Informant: patient Narrative Narrative: Patient presents with a primary concern of palpitations. She states she has had palpitations for years. She has seen her [facility] cardiology. She has had an echo, tilt table and several cardiac monitors. She states that she has symptoms that are like V. tach but it sounds like this is never been diagnosed. She has never been treated with medications. Never been recommended to have an ICD. She does not get chest pain. She just feels palpitations. She cannot describe these further. She cannot describe as fast slow or missed. She also is complaining of a cold feeling mostly on her left side but a little on the right. She states that started when she had a migraine yesterday although the migraine is now gone. She took Fioricet for this. She does have a history of complex migraines with occasional tingling or visual changes. She did not have visual changes with this 1. She has no trouble walking or performing ADLs. Nothing makes any of the symptoms specifically better or worse. 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 Depression Heart palpitations History of oligohydramnios Marijuana abuse NSVT (nonsustained ventricular tachycardia) depression Premature atrial contraction Premature ventricular contraction Supervision of normal first UTI (urinary tract infection), affecting care of mother, antepartum Ventricular ectopy Home Medications naproxen sodium 220 mg tablet 220 mg PO BID PRN 04/05/21 [History Last Taken Unknown] [id number]-[id number]-rexp 1 cap PO Q4H PRN PRN 09/15/21 [History Last Taken Unknown] ondansetron 4 mg PO Q8H PRN 09/15/21 [History Last Taken Unknown] potassium chloride [Klor-Con M20] 20 meq PO DAILY #5 tab 09/15/21 [Rx Last Taken Unknown] Allergy/AdvReac Type Severity Reaction Status Date / Time No Known Allergies Allergy Verified 09/15/21 19:42 Family History Brother CVA (cerebral vascular accident) Grandfather Cardiac pacemaker in situ Other Melanoma Social History Smoking Status: Heavy Smoker (>10/day) alcohol intake: current alcohol intake frequency: holidays/special occasions only substance use type: does not use caffeine: Yes Type: coffee Number of servings: 3 what type of physical activity do you participate in: walking frequency: 3-4 times per week seatbelt use: always do you feel safe at home: Yes additional social history: Boyfriend-Jackson ROS ROS ED Constitutional Constitutional ED: Denies chills or fever(s) Eyes Eyes: Denies blurry vision, change in vision or diplopia ENT ENT ED: Denies rhinorrhea or sore throat Cardiovascular Cardiovascular: Reports palpitations; Denies chest pain Respiratory/Chest Respiratory/Chest: Denies cough or dyspnea Gastrointestinal Gastrointestinal: Reports nausea and other Details: Patient had nausea yesterday but it went away with Zofran. She is not nauseated now. She never had vomiting. ; Denies abdominal pain or vomiting Genitourinary Genitourinary ED: Denies dysuria or hematuria Musculoskeletal Musculoskeletal: Denies arthralgias or myalgias Neurologic Neurologic: Reports paresthesias and other Details: Patient had headache yesterday that was central forehead typical of her migraine. But it is gone now. She has a sense of coldness but no numbness or weakness of her extremities. ; Denies headache(s) or weakness Psychiatric Psychiatric: Reports anxiety and depression Endocrine Endocrinology: Denies polydipsia or polyuria Allergic/Immunologic Allergic/Immunologic ED: Denies urticaria EXAM Physical Exam Const Vital Signs: 09/15/21 19:39 09/15/21 20:03 09/15/21 20:05 Temperature 97 F L Temperature Source Temporal Pulse Rate 70 65 Respiratory Rate 18 18 Respiratory Effort Normal Respiratory Pattern Normal Blood Pressure 115/83 H 126/79 H Blood Pressure Mean 93 94 Pulse Ox 98 99 Oxygen Delivery Method Room Air 09/15/21 21:15 09/15/21 22:32 Temperature Temperature Source Pulse Rate 53 L 57 L Respiratory Rate 14 18 Respiratory Effort Respiratory Pattern Blood Pressure 118/94 H 119/82 H Blood Pressure Mean 102 94 Pulse Ox 100 98 Oxygen Delivery Method Room Air Room Air Positive well nourished and well developed General Appearance ED: well developed HEENT Reports moist mucous membranes HEENT Narrative: No facial tenderness Negative for trauma or tenderness Eyes PERRL and EOMs intact bilaterally General Eye ED: Negative for pale conjunctiva or scleral icterus Neck supple Chest Wall inspection of chest normal and palpation of chest normal Resp normal respiratory effort and clear to auscultation bilaterally Effort and Inspection: Negative for pain with movement Auscultation: Negative for rales, rhonchi or wheezes Cardio regular rate, regular rhythm and no murmurs Rate: other Other Details: Monitor shows a normal sinus rhythm with a rate of about 59 or 60. No ectopy. GI normal to inspection, nondistended, normoactive bowel sounds and non-tender Palpation: soft Back/Spine no CVA tenderness General Back: CVA tenderness Extremity normal to inspection Extremity Narrative: Normal pulses x4. General Extremety ED: Negative for edema or tenderness General Extremity: Negative for edema Neuro oriented x3 Neuro Narrative: Patient is awake alert oriented x3. She is calm and relaxed. She can lift both feet. She can lift both arms. Quadriceps are normal. Bicep tricep strength is normal. Sensation is normal but she states her left side feels cold. There are no skin color changes. Capillary refill is also normal. Sensorium / Orientation: alert Psych mental status grossly normal Psych Narrative: Mildly flat affect. Skin no rashes or lesions noted MDM MDM MDM Narrative Medical decision making narrative: Patient CT is normal. EKG showed no acute process. CBC is normal. Electrolytes show minimally low potassium but otherwise normal. Troponin is completely negative. Patient is rechecked. She feels well. She is not feeling the palpitations now. And her heart rate is the same and looks the same on the monitor. She has had this for years I do not think we need to admit her for this. She has no neurologic findings but just complained of a cold feeling on her left side. That is now gone. But this may also have been related to her migraine and she has history of complex migraines. This could be related to mild hypokalemia. I will write her for a few days of potassium. We discussed reasons to return and follow-up. Lab Data Attestation: I reviewed the patient's lab results. Labs: Laboratory Results - last 24 hr 09/15/21 09/15/21 21:15 21:15 WBC 7.6 RBC 3.96 L Hgb 12.6 Hct 35.8 L MCV 90.4 MCH 31.8 MCHC 35.2 RDW Std Deviation 40.0 RDW Coeff of Rebecca 12.1 Plt Count 287 MPV 10.7 Immature Gran % (Auto) 0.300 Neut % (Auto) 58.4 Lymph % (Auto) 33.1 [place] % (Auto) 7.3 Eos % (Auto) 0.5 Baso % (Auto) 0.4 Absolute Neuts (auto) 4.4 Absolute Lymphs (auto) 2.50 Nucleated RBC % 0 Sodium 141 Potassium 3.3 L Chloride 108 H Carbon Dioxide 28.0 Anion Gap 5 BUN 6 L Creatinine 0.79 Estim Creat Clear Calc 92.40 Est GFR (MDRD) Af Amer 116 Est GFR (MDRD) Non-Af 96 BUN/Creatinine Ratio 7.6 L Glucose 86 Calcium 9.5 Troponin I High Sens < 3 L Radiography Diagnostic Testing: Clinical Impression(s) from Imaging Studies Brain CT 09/15/21 20:54 IMPRESSION: There are no acute intracranial findings. Electronically Signed: Giacomo Ontiveros MD at 21:42 EDT Reading Location ID and State: [facility] / [place] , Service support , Discharge Plan Triage Chief Complaint: General Illness ED Provider: Dillon Romero Dx/Rx/DC Orders Clinical Impression: Heart palpitations, Paresthesias Instructions: ED Palpitations, ED Paraesthesias Prescriptions: New potassium chloride [Klor-Con M20] 20 mEq tablet,ER particles/crystals 20 meq PO DAILY Qty: 5 RF: 0 No Action naproxen sodium [Aleve] 220 mg tablet 220 mg PO BID PRNRF: 0 ondansetron 4 mg tablet,disintegrating 4 mg PO Q8H PRN (Reason: Nausea) RF: 0 [id number]-jbwbjzsitdtra-dslc 50-300-40 mg capsule 1 cap PO Q4H PRN PRN (Reason: Headache) RF: 0 Referrals: MILDRED LEE [Other] Disposition Disposition: Home, Self Care
[2021-09-15 21:15] VITALS: BP 118/94; PULSE 53; RESP 14; O2SAT 100
[2021-09-15] MEDS: 0.9% Normal Saline 1,000 ML 1000 ML IV (21:17)
[2021-09-15 21:49] LABS: Absolute Neutrophil Count 4.4 X10^3/uL (2.0-7.7); Basophil# 0.03 X10^3/uL; Basophil% 0.4 % (0-1); Eosinophil# 0.04 X10^3/uL; Eosinophils% 0.5 % (0-5); Hematocrit 35.8 % (37-47); Hemoglobin 12.6 g/dL (12.0-15.0); Lymphocyte % 33.1 % (19-41); Mean Corp Hgb Conc 35.2 g/dL (32-36); Mean Corpuscular Hgb 31.8 pg (27.0-32.0); Mean Corpuscular Volume 90.4 fL (81-99); Mean Platelet Vol. 10.7 fl (6.2-12.0); Monocyte# 0.55 X10^3/uL; Monocyte% 7.3 % (0-10); NRBC Flagged by Analyzer 0 % (0-5); Neutrophil # 4.42 X10^3/uL (2.7-7.7); Neutrophil % 58.4 % (47-70); Platelet Count 287 K/mm3 (150-450); RBC Distribution Width CV 12.1 % (11.6-14.6); Red Blood Count 3.96 M/mm3 (4.2-5.4); White Blood Count 7.6 K/mm3 (4.4-11.0)
[2021-09-15 22:08] LABS: Anion Gap 5 (5-15); BUN 6 mg/dL (7-18); BUN/Creat Ratio 7.6 RATIO (10-20); Calcium,Total 9.5 mg/dL (8.5-10.1); Chloride 108 mmol/L (98-107); Creatinine, Serum 0.79 mg/dL (0.55-1.02); EST Glomerular Filtration Rate 96 mL/min (>60); Est Glom Filt Rate - Afr Amer 116 mL/min (>60); Glucose 86 mg/dL (74-106); Potassium 3.3 mmol/L (3.5-5.1); Sodium Level 141 mmol/L (136-145); Troponin-I HS < 3 pg/mL (3.0-54.0)
[2021-09-15 22:32] VITALS: BP 119/82; PULSE 57; RESP 18; O2SAT 98
[2021-09-15] MEDS: Potassium Chloride Oral Tablet 20 MEQ PO (22:32)
== END 2021-09-15 23:04 | disposition home or self-care (01) ==
PROVIDERS: Emergency Provider Emergency Medicine; Visit Provider Emergency Medicine
DX: R00.2 Palpitations (principal); R20.2 Paresthesia of skin; F17.200 Nicotine dependence, unspecified, uncomplicated; G43.109 Migraine with aura, not intractable, without status migrainosus; E87.6 Hypokalemia
CPT/HCPCS: 70450; 80048; 84484; 85025; 93005; 96360; 99284; J7030; A4216

== ENCOUNTER 2022-08-10 11:02 | Emergency (ER) | payer MEDICAID, SELFPAY ==
[2022-08-10 11:03] VITALS: BP 120/88; PULSE 70; RESP 16; TEMP 36.9; O2SAT 100; BMI 26.5
--- NOTE | 2022-08-10 11:42 | ED.VIS.DYS ---
HPI History of Present Illness Chief Complaint: Shortness of Breath Informant: patient Onset/Context/Timing Onset: Days (3) Context: sudden Associated Symptoms Chest Pain: Positive for Intermittent and Pleuritic (Mostly left-sided upper) Narrative Narrative: Patient states she was in the shower 3 days ago, she was rinsing her hair and when she turned around she states she accidentally got a large amount of water that seem to be forced in her mouth, she describes symptoms of aspirating and was choking violently trying to get it all out she states. Ever since then she has had pain in the left side of her chest and some trouble breathing. Some of the discomfort is worse when she takes of breath. She has not had any loss of consciousness, lightheadedness, focal neurologic symptoms, vomiting, or other symptoms. Since the symptoms are persistent for the past 3 days she presents for evaluation for the first time from this. 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 Depression Heart palpitations History of oligohydramnios Marijuana abuse Non-rheumatic mitral regurgitation Nonrheumatic mitral (valve) prolapse NSVT (nonsustained ventricular tachycardia) depression Premature atrial contraction Premature ventricular contraction Supervision of normal first UTI (urinary tract infection), affecting care of mother, antepartum Ventricular ectopy Home Medications NK 08/10/22 [History Last Taken Unknown] Allergy/AdvReac Type Severity Reaction Status Date / Time No Known Allergies Allergy Verified 08/10/22 11:04 Family History Brother CVA (cerebral vascular accident) Grandfather Cardiac pacemaker in situ Other Melanoma Social History Smoking Status: Heavy Smoker (>10/day) alcohol intake: current alcohol intake frequency: holidays/special occasions only substance use type: does not use caffeine: Yes Type: coffee Number of servings: 3 what type of physical activity do you participate in: walking frequency: 3-4 times per week seatbelt use: always do you feel safe at home: Yes additional social history: Boyfriend-Jackson ROS ROS ED Constitutional Constitutional ED: Denies chills or fever(s) Eyes Eyes: Denies change in vision or diplopia ENT ENT ED: Reports sore throat; Denies rhinorrhea Cardiovascular Cardiovascular: Reports chest pain; Denies palpitations Respiratory/Chest Respiratory/Chest: Reports dyspnea and other Details: Occasional cough now, nonproductive, no hemoptysis Gastrointestinal Gastrointestinal: Denies abdominal pain, diarrhea, nausea or vomiting Genitourinary Genitourinary ED: Denies dysuria or hematuria Musculoskeletal Musculoskeletal: Denies back pain or neck pain Integumentary Denies abscess or rash Neurologic Neurologic: Denies headache(s), paresthesias or weakness Psychiatric Psychiatric: Denies anxiety or suicidal thoughts EXAM Physical Exam Const Vital Signs: 08/10/22 11:03 08/10/22 12:16 08/10/22 12:40 Temperature 98.4 F Temperature Source Temporal Pulse Rate 70 60 Respiratory Rate 16 18 Respiratory Effort Normal Non-Labored Respiratory Depth Normal Respiratory Pattern Normal Normal Blood Pressure 120/88 H Blood Pressure Mean 98 Pulse Ox 100 Oxygen Delivery Method Room Air Positive well nourished and well developed General Appearance ED: well developed and NAD HEENT Reports moist mucous membranes HEENT Narrative: No stridor. Posterior oropharynx normal. No trismus. normocephalic and atraumatic Eyes PERRL and EOMs intact bilaterally Neck full ROM, no lymphadenopathy, supple and no meningeal signs Chest Wall Chest Narrative: Some mild tenderness of bilateral anterior axillary area of chest wall, no crepitance or step-off Resp normal respiratory effort and clear to auscultation bilaterally Resp Narrative: Conversive in full sentences without distress Cardio regular rate, regular rhythm and no murmurs Rate: Negative for tachycardic GI non-tender and non-distended Auscultation: normoactive bowel sounds Palpation: soft Back/Spine no CVA tenderness General Back: other FROM Extremity normal to inspection General Extremety ED: Negative for edema, pulses abnormal or tenderness General Extremity: Negative for edema or pulses abnormal Neuro oriented x3, CN's II-XII intact bilaterally and no sensory deficits noted Sensorium / Orientation: awake and alert Motor Exam: strength 5/5 throughout Psych Mood & Affect: anxious and tearful Skin no rashes or lesions noted and no wounds MDM MDM MDM Narrative Medical decision making narrative: 2 view chest x-ray was obtained and on my interpretation is normal, showing no signs of aspiration pneumonitis. Radiology in agreement. Patient's vital signs are normal, reassuring. She states she was feeling some chest tightness on reevaluation, but she is in no distress. I had respiratory perform an aerosol of albuterol on her, this did help some. Is possible a lot of this is musculoskeletal, reactive airway is in the differential as well, do not think any of this is due to venous thromboembolism or cardiac due to the history and acute onset with choking on water. I think supportive care is advised/reasonable right now, since her vital signs are normal and there is no radiographic signs of aspiration after 3 days, I would not recommend antibiotics or any other specific treatments, but if she gets worse she is welcome return to the ER for reevaluation. Radiography Diagnostic Testing: Clinical Impression(s) from Imaging Studies Chest X-Ray 08/10/22 11:55 IMPRESSION: Normal x-ray examination of the chest. Electronically Signed: Eusebio Colón MD at 12:28 EDT , Discharge Plan Triage Chief Complaint: Shortness of Breath ED Provider: Mohamud Farfan Dx/Rx/DC Orders Clinical Impression: Choking episode, Aspiration into airway Instructions: ED Choking Spell (Adult) Prescriptions: No Action NK Primary Care Provider: MILDRED LONG Referrals: MILDRED LONG [Other] - 3-5 Days if not improving Disposition Disposition: Home, Self Care
--- NOTE | 2022-08-10 11:55 | RAD_ITS ---
STUDY: X-RAY CHEST REASON FOR EXAM: Female, 21 years old. Chest pain/pressure TECHNIQUE: PA and lateral views of the chest. COMPARISON: 04/07/2021 FINDINGS: The lungs are clear and expanded. There is no demonstrated pleural abnormality. Normal size heart. Normal mediastinum and genaro. Normal visualized pulmonary arteries. Normal visualized aortic arch and descending thoracic aorta. Normal visualized thoracic spine. Normal visualized ribs, clavicles, and shoulders. There is no demonstrated abnormality of the visualized soft tissue structures of the upper abdomen. RAD/Chest PA and Lateral IMPRESSION: Normal x-ray examination of the chest. Electronically Signed: Eusebio Colón MD at 12:28 EDT ,
[2022-08-10] MEDS: Albuterol 2.5 MG/3 ML VIAL.NEB. INHALATION (12:38)
[2022-08-10 12:40] VITALS: PULSE 60; RESP 18
== END 2022-08-10 13:02 | disposition home or self-care (01) ==
PROVIDERS: Emergency Provider Emergency Medicine; Referring Provider Emergency Medicine; Visit Provider Emergency Medicine
DX: T17.498A Other foreign object in trachea causing other injury, initial encounter (principal); R07.81 Pleurodynia; F17.200 Nicotine dependence, unspecified, uncomplicated; X58.XXXA Exposure to other specified factors, initial encounter
CPT/HCPCS: 71046; 94640; 99282

== ENCOUNTER → 2022-09-14 | Outpatient (CLI) | payer MEDICAID, SELFPAY ==
[2022-09-14 14:05] LABS: hCG Titer Quant., Serum < 1 mIU/mL (1-3)
== END | disposition home or self-care (01) ==
LOC: LAB 13:37
PROVIDERS: Visit Provider Obstetrics & Gynecology
DX: N91.2 Amenorrhea, unspecified (principal)
CPT/HCPCS: 36415; 84702

== ENCOUNTER → 2022-09-16 | Outpatient (CLI) | payer MEDICAID, SELFPAY ==
[2022-09-16 16:03] LABS: hCG Titer Quant., Serum < 1 mIU/mL (1-3)
== END | disposition home or self-care (01) ==
LOC: LAB 15:30
PROVIDERS: Referring Provider Obstetrics & Gynecology; Visit Provider Obstetrics & Gynecology
DX: N91.2 Amenorrhea, unspecified (principal)
CPT/HCPCS: 36415; 84702

== ENCOUNTER → 2023-01-18 | Outpatient (CLI) | payer MEDICAID, SELFPAY ==
[2023-01-20 21:06] LABS: Chlamydia By Nucleic Acid AMP Positive (Negative); Gonococcus By Nucleic Acid AMP Negative (Negative)
== END | disposition home or self-care (01) ==
LOC: LAB 16:54
PROVIDERS: Referring Provider Registered Nurse; Visit Provider Registered Nurse
DX: N89.8 Other specified noninflammatory disorders of vagina (principal)
CPT/HCPCS: 87070; 87205; 87491; 87591

== ENCOUNTER → 2023-03-17 | Outpatient (CLI) | payer MEDICAID, SELFPAY ==
[2023-03-21 08:12] LABS: Chlamydia By Nucleic Acid AMP Negative (Negative); Gonococcus By Nucleic Acid AMP Negative (Negative)
== END | disposition home or self-care (01) ==
LOC: LABSPEC 17:03
PROVIDERS: Referring Provider Advanced Practice Midwife; Visit Provider Advanced Practice Midwife
DX: Z20.2 Contact with and (suspected) exposure to infections with a predominantly sexual mode of transmission (principal)
CPT/HCPCS: 87491; 87591

== ENCOUNTER → 2023-06-27 | Outpatient (CLI) | payer MEDICAID, SELFPAY ==
[2023-06-27 13:53] LABS: hCG Titer Quant., Serum < 1 mIU/mL (1-3)
--- OUTSIDE RECORDS SUMMARY | 2023-06-27 22:10 | XMS RPT_ITS | CCD ---
Author Name Unknown Address [id number] [place] [address] Organization [facility] Care Team Providers Care Controls Designer Name Role Phone EDIL, HARDIK Unavailable Unavailable BURSLEY, CHRISTOPHER Unavailable Unavailable IMCA Unavailable Unavailable EDIL, HARDIK Unavailable Unavailable BURSLEY, CHRISTOPHER Unavailable Unavailable NO REFERRING DR Unavailable Unavailable SCHWIGER, NICKY Unavailable Unavailable SCHWIGER, NICKY Unavailable Unavailable NO REFERRING DR Unavailable Unavailable YAZMIN GREGORIO MD Unavailable Unavailabl catalino GREGORIO MD, YAZMIN Blum Unavailable Unavailabl e EDIL, HARDIK Unavailable Unavailable EDIL, HARDIK Unavailable Unavailable BURSLEY, CHRISTOPHER Unavailable Unavailable EDIL, HARDIK Unavailable Unavailable EDIL, HARDIK Unavailable Unavailable EDIL, HARDIK Unavailable Unavailable EDIL, HARDIK Unavailable Unavailable BURSLEY, CHRISTOPHER Unavailable Unavailable BURSLEY, CHRISTOPHER Unavailable Unavailable EDIL, HARDIK Unavailable Unavailable EDIL, HARDIK Unavailable Unavailable BURSLEY, CHRISTOPHER Unavailable Unavailable [employer]shin-Fer MANAGEMENT RETAIL INTERN, Jeannie Alejandra Primary Care Pr ovider ROMELIA TRIPLETT JR Referring Unavailable DICK-TERESA, JEANNIE ALEJANDAR Primary Care [place] vailable ALMA RAMSAY MD Attending Unavailable DICKENS-TERESA PICK UP MAN-MANAGEMENT RETAIL INTERN, JEANNIE Primary Care U navailable DICKENS-TERESA, JEANNIE ALEJANDRA Primary Care [place] vailable DICKENS-TERESA, JEANNIE ALEJANDRA Primary Care [place] vailable DICKENS-TERESA, JEANNIE ALEJANDRA Primary Care [place] vailable DICKENS-TERESA, JEANNIE ALEJANDRA Primary Care [place] vailable YAMILEX HOFFMANN Admitting UnavailHECTOR Pena Attending Unavailable JENNIFER VARGAS Consulting Unavailable DICKENS-TERESA, JEANNIE ALEJANDRA Primary Care [place] vailable TRIPLETT JR, ROMELIA J Referring Unavailable AFSHINCatarinaKAMARI TERESAROOPA ROBERTS Primary Care [place] ROMELIA Sheets JR Referring Unavailable ROMELIA TRIPLETT JR Attending Unavailable Medications Completed/Discontinued Medications Medication Drug Class(es) Dates Sig (Normalized) Sig (Original) Acetaminophen / pamabrom (4 sources) take 1 tablet by joe th four times daily as needed for headache acetaminophen/pamab rom (MIDOL ORAL) Take 1 tablet by mouth four times daily as needed (headaches). 0 Active Problems Active Problems Problem Classification Problem Date Documented Da te Episodic/Chronic Abdominal pain (1 source) Abdominal pain Onset: 09-18-2022 Episodic Epilepsy; convulsions (7 sources) Unspecified convulsions; Translations: [Seizure] Onset: 11-07-2022 11-09-2022 Episodic Headache; including migraine (1 source) Headache; Translations: [Chronic intractable headache, unspecified headache type] 11-15-2022 Episodic Headache; including migraine (2 sources) Headache; including migraine; Translations: [Chronic intractable headache, unspecified headache type] Onset: 11-07-2022 Mood disorders (4 sources) Dysthymia; Translations: [Dysthymic disorder] Onset: 06-26-2015 06-26-2015 Chronic Other nervous system disorders (2 sources) Other chronic pain; Translations: [Chronic intractable headache, unspecified headache type] Onset: 11-07-2022 Chronic Substance-related disorders (1 source) Nicotine dependence, cigarettes, uncomplicated; Translations: [NICOTINE DEPEND CIGARETT] Onset: 01-21-2017 Chronic Unclassified (1 source) Unknown / UNK(Unknown) Onset: 04-20-2017 Past or Other Problems Problem Classification Problem Date Documented Date Episodic/Chronic Cardiac and circulatory congenital anomalies (4 sources) H/O: cardiac anomaly; Translations: [Personal history of (corrected) congenital malformations of heart and circulatory system] Onset: 06-26-2015 04-26-2021 Episodic Conditions associated with dizziness or vertigo (4 sources) Dizziness and giddiness; Translations: [Benign paroxysmal vertigo, bilateral] Onset: 01-03-2017 Episodic Nausea and vomiting (2 sources) Nausea with vomiting, unspecified; Translations: [Nausea] Onset: 01-03-2017 Episodic Other aftercare (1 source) Other fpc (current) drug therapy; Translations: [OTH ENGINEER GAS PUMPING STATION CURRENT DR] Onset: 01-21-2017 Episodic Other complications of (4 sources) Teenage ; Translations: [Supervision of other high risk pregnancies, unspecified trimester] Onset: 06-26-2015 06-26-2015 Episodic Other complications of (4 sources) High risk ; Translations: [Supervision of high risk due to social problems, unspecified trimester] Onset: 06-26-2015 04-26-2021 Episodic Other complications of (4 sources) Uterine size for dates discrepancy; Translations: [Uterine size-date discrepancy, unspecified trimester] Onset: 12-16-2015 04-27-2021 Episodic Syncope (1 source) Syncope and collapse Onset: 04-20-2017 Episodic Results Test Name Value Interpretation Reference Range Facil ity Encounters Encounter Date Encounter Type Care Provider Facility Start: 11-15-2022 End: 11-15-2022 ambulatory JEANNIE DOWNS Facility:[facility] Start: 11-15-2022 Telephone encounter Yuniel ibarra DO Work Phone: [facility] Procedures Date Procedure Procedure Detail Performing Clinician Start: 11-15-2022 Mri brain brain stem w/o w/contrast material Romelia Triplett MD Work Phone: Plan of Treatment Date Care Activity Detail Author Start: 09-15-2030 Urine microalbumin profile DTa P,Tdap,Td Vaccine (10 - Td or Tdap) [facility] Start: 10-13-2025 Urine microalbumin profile DTA P,TDAP,TD (3 - Td or Tdap) [facility] Start: 09-19-2023 CHLAMYDIA SCREENING () CHLAMYDIA SCREENING () [facility] Start: 09-19-2023 GC (GONORRHEA) SCREE VITALIY () GC (GONORRHEA) SCREENING () [facility] Start: 12-30-2022 Influenza vaccination [facility] Start: 11-15-2021 HEPATITIS B (2 of 2 - CpG 2-dose series) HEPATITIS B (2 of 2 - CpG 2-dose series) [facility] Start: 11-09-2019 PAP TESTING PAP TESTING [facility] Start: 2014 Meningococcal B Vacc ine: Consider Based On Risk (1 of 2 - Patient Seeks Protection) Meningococcal B Vaccine: Consider Based On Risk (1 of 2 - Patient Seeks Protection) [facility] Start: 2014 MENINGOCOCCAL B: Con trade show coordinator based on risk (1 of 2 - Patient Seeks Protection) MENINGOCOCCAL B: Consider based on risk (1 of 2 - Patient Seeks Protection) [facility] Start: 2012 PEDS TO ADULT TRANSI TION ANNUAL ASSESSMENT PEDS TO ADULT TRANSITION ANNUAL ASSESSMENT [facility] Start: 2010 PEDS TO ADULT TRANSI TION INITIAL DISCUSSION PEDS TO ADULT TRANSITION INITIAL DISCUSSION [facility] Start: 2008 MENINGOCOCCAL B: Con trade show coordinator based on risk (1 of 2 - Risk Bexsero 2-dose series) MENINGOCOCCAL B: Consider based on risk (1 of 2 - Risk Bexsero 2-dose series) [facility] Start: 11-09-2007 HPV VACCINE (1 - 2-d ose series) HPV VACCINE (1 - 2-dose series) [facility] Start: 05-11-1999 COVID-19 VACCINE (#1) COVID-19 VACCI NE (#1) [facility] Immunizations Immunization Date Immunization Notes Care Provider [facility] 10-18-2021 Hepatitis B vaccine (recombinant), CpG adjuvanted Romelia Triplett Jr., MD Work Phone: [facility] 10-18-2021 hepatitis B vaccine, unspecified formulation Romelia Triplett Jr., MD Work Phone: [facility] 05-23-2017 meningococcal polysaccharide (groups A, C, Y and W-135) diphtheria toxoid conjugate vaccine (MCV4P) Romelia Triplett Jr., MD Work Phone: [facility] Work Phone: 10-14-2015 tetanus toxoid, redu helena diphtheria toxoid, and acellular pertussis vaccine, adsorbed Romelia Triplett Jr., MD Work Phone: [facility] 12-24-2014 meningococcal polysaccharide (groups A, C, Y and W-135) diphtheria toxoid conjugate vaccine (MCV4P) Romelia Triplett Jr., MD Work Phone: [facility] 02-25-2011 tetanus toxoid, redu helena diphtheria toxoid, and acellular pertussis vaccine, adsorbed Romelia Triplett Jr., MD Work Phone: [facility] Payers Date Payer Category Payer Medicaid [id number] 2022 Medicaid [place] [employer] [id number] 2022-Present [phone] [address] [place] [address] Medicaid [id number] 2000 Unknown [id number] Unknown [id number] Social History Date Type Detail Facility Start: 10-10-2022 Tobacco smoking stat [facility] Ex-smoker [facility] End: 12-30-2016 History of tobacco use Current smoker [facility] End: 12-30-2016 History of tobacco use Cigarette Smoker [facility] Start: 09-19-2022 End: 10-10-2022 Cigarettes smoked current (pack per day) - Reported 0.5 [facility] Start: 10-10-2022 Tobacco use and exposure Smoke less tobacco non-user [facility] Start: 10-10-2022 End: 11-09-2022 Alcohol intake Ex-drinker (finding) [facility] Start: 2000 Sex Assigned At Not on file [facility] Start: 09-19-2022 End: 11-09-2022 Tobacco use panel [facility] Adult Depression Scr eening Assessment 0 [facility] Clinical Notes 10-10-2022 to 11-15-2022 Sonia Herrera RT(R) - 11/15/2022 1:00 PM EDTTelephone Encounter - Jana Pike - 11/15/2022 11:43 AM EDTTelephone Encounter - Yeni Carrillo LPN - 11/09/2022 4:48 PM EDT Note Date & Type Note Facility 11-15-2022 Note HNO ID: [id number] Author: Sonia Herrera RT(R) Service: ? Author Type: Technologist Type: Progress Notes Filed: 11/15/2022 12:53 PM Note Text: Radiology Service Progress Note DATE OF SERVICE: November 15, 2022 TIME: 12:52 PM PATIENT IDENTITY VERIFICATION COMPLETED USING TWO (2) STANDARD IDENTIFIERS: Name and Date of confirmed by patient verbally. FALL SCREENING: Has the patient had 2 falls in the last year or 1 fall with injury or currently using an Ambulatory Assistive Device (Walker, Cane, Wheelchair, Crutches, etc.)? No PATIENT GENDER DATA: Female. status: : No status: NO. PATIENT RELEVANT IMPLANT DATA REVIEWED: Yes ALLERGIES: Reviewed and unchanged CONTRAST ALLERGY: NO. EXAM: MRI - CONTRAST TYPE: GROUP II PERIPHERAL IV DATA: Ambulatory: A peripheral IV was started in the Left antecubital site with a Angio cath: 22 gauge. RADIOLOGY DEPARTMENT: MR; Exam(s) Completed: Head: Seizure SIGNATURE: RT Serafin(R) PATIENT NAME: Renee ROJOWITT DATE: November 15, 2022 TIME: 12:52 PM [facility] 11-15-2022 History of Presen t illness Narrative Radiology Service Progress Note DATE OF SERVICE: November 15, 2022 TIME: 12:52 PM PATIENT IDENTITY VERIFICATION COMPLETED USING TWO (2) STANDARD IDENTIFIERS: Name and Date of confirmed by patient verbally. FALL SCREENING: Has the patient had 2 falls in the last year or 1 fall with injury or currently using an Ambulatory Assistive Device (Walker, Cane, Wheelchair, Crutches, etc.)? No PATIENT GENDER DATA: Female. status: : No status: NO. PATIENT RELEVANT IMPLANT DATA REVIEWED: Yes ALLERGIES: Reviewed and unchanged CONTRAST ALLERGY: NO. EXAM: MRI - CONTRAST TYPE: GROUP II PERIPHERAL IV DATA: Ambulatory: A peripheral IV was started in the Left antecubital site with a Angio cath: 22 gauge. RADIOLOGY DEPARTMENT: MR; Exam(s) Completed: Head: Seizure SIGNATURE: RT Serafin([place]) PATIENT NAME: Renee KENT DATE: November 15, 2022 TIME: 12:52 PM documented in this encounter [facility] 11-15-2022 Miscellaneous Notes [facility] Wanted to schedule a follow up post discharge for patient. Called and left message to call the office to schedule. documented in this encounter [facility] 11-10-2022 Note HNO ID: [id number] Author: Elke Montiel DO Service: Neurology General Author Type: Physician Type: Procedures Filed: 11/10/2022 9:06 PM Note Text: LONG-TERM EEG MONITORING SUMMARY START: 11/09/22 6:53 pm END: 11/10/22 12:05 pm The patient was unhooked twice for approximately 30 min for testing TOTAL TIME: 17 hours HISTORY: This is a 22 year old female who is undergoing ocean transportation intermediary video EEG monitoring to evaluate for seizures. INTERICTAL ACTIVITY: The background activity consisted of a 10 Hz posterior dominant rhythm that attenuates with eye opening. Sleep was manifested by vertex waves, K complexes, and sleep spindles. No focal slowing or epileptiform activity was identified. ICTAL ACTIVITY / SPELLS: No ictal activity was seen. The patient reportedly had 2 spells, one in the evening on 11/09/22 and one in the morning between 730 and 930 am. Description was not given. Upon video review, she did have a crying spell at 8:14 PM that lasted off and on for 15 minutes on 11/09/22. No other clear clinical symptoms were seen. Multiple video sections were scanned on 11/10/22 but it is still unclear what the spell was that was captured during the recording that morning. IMPRESSION: This is a normal 17 hour prolonged video EEG. Two events (description unclear) occurred during this timeframe and had no epileptic correlate. CLINICAL CORRELATION: The spells captured during this recording are non-epileptic. Consider alternative etiologies. Elke Montiel DO 11/10/2022 9:00 PM [facility] 11-10-2022 Note HNO ID: [id number] Author: Lore Maradiaga APRN.CNP Service: Hospital Medicine Author Type: Nurse Practitioner Type: Progress Notes Filed: 11/10/2022 4:54 PM Note Text: INPATIENT PROGRESS NOTE SERVICE DATE: 11/10/2022 SERVICE TIME: 4:42 PM PRIMARY SERVICE: Hospitalist Disposition:home following psych recommendations Subjective CHIEF COMPLAINT: Seizures INTERVAL HPI: Patient was seen by neurology, 24-hour EEG completed. Neurology note reviewed. Reportedly she has had 30 pound weight loss over the last month. History of anxiety and depression but has not been treated for this. Neurology recommended following up with her outpatient neurologist as well as psychiatry. Discussed with patient and she became tearful. Admits she has a lot of stress going on. Would prefer to have psych evaluate to get her dialed into appropriate resources prior to discharge. She denied any chest pain or shortness of breath. Psych will be consulted, awaiting recommendations with hopeful discharge tomorrow. Patient did states she feels counseling does not help but may be open to consider medications. Will defer to psychiatry. Objective PHYSICAL EXAM: BP 104/66 Pulse 48 Temp (Src) 97.9 (Oral) Resp 16 Ht 5' 4 (1.63m) Wt 123 lb 9.6 oz (56.1kg) SpO2 98% LMP 11/05/2022 BMI 21.21 kg/(m2). O2 Therapy: Room Air Physical Exam Performed Physical Exam Vitals reviewed. Constitutional: Appearance: Normal appearance. Cardiovascular: Rate and Rhythm: Normal rate and regular rhythm. Pulses: Normal pulses. Heart sounds: Normal heart sounds. Pulmonary: Effort: Pulmonary effort is normal. No respiratory distress. Breath sounds: Normal breath sounds. No wheezing. Abdominal: General: Bowel sounds are normal. There is no distension. Palpations: Abdomen is soft. Tenderness: There is no abdominal tenderness. Musculoskeletal: General: No swelling or tenderness. Skin: General: Skin is warm and dry. Neurological: Mental Status: She is alert and oriented to person, place, and time. Mental status is at baseline. Psychiatric: Mood and Affect: Mood normal. Behavior: Behavior normal. DATA: No intake or output data in the 24 hours ending 11/10/22 1642 Current Facility-Administered Medications Medication Dose Route Frequency Provider Last Rate Last Admin NaCl 0.9% iv infusion 100 mL/hr INTRAVENOUS CONTINUOUS Lore Maradiaga, KALPESH.MANAGEMENT RETAIL INTERN NaCl 0.9% iv flush bag 20 mL INTRAVENOUS PRN Yamilex Hoffmann MD aluminum-magnesium hydroxide-simethicone 200-200-20 mg/5 mL 30 mL 30 mL ORAL DAILY PRN Yamilex Hoffmann MD ondansetron 4 mg tab(s) (ZOFRAN) 4 mg ORAL q 6 H PRN Yamilex Hoffmann MD 4 mg at 11/09/222131 Or ondansetron (PF) 4 mg injection (ZOFRAN) 4 mg INTRAVENOUS q 6 H PRN Yamilex Hoffmann MD acetaminophen 650 mg tab(s) (TYLENOL) 650 mg ORAL q 6 H PRN Yamilex Hoffmann MD 650 mg at 11/10/22 1105 topiramate 25 mg tab(s) (TOPAMAX) 25 mg ORAL AT BEDTIME Yamilex Hoffmann MD 25 mg at 11/09/222131 CBC, Coags, BMP, Mg, Phos Recent Labs 11/10/22 0426 11/09/22 1256 WBC 6.12 7.19 HB 12.2 12.4 HCT 34.5* 35.5* PLT 266 296 NA 140 142 K 3.7 3.9 CHLOR 104 105 CO2 25 25 BUN 19 14 CREAT 1.04* 0.91 GLUC 82 81 CA 9.9 10.0 CSF AND Dilantin Liver Function, Amylase, AND Lipase Recent Labs 11/09/22 1256 TPROT 7.8 ALB 5.0 ALT 22 AST 19 ALKPHOS 32* TBILI 1.5* Cardiac Enzymes ABGs Assessment/Plan Principal Problem: Seizures (HCC) (POA: Yes) Assessment AND Plan: Reviewed neurology note, they recommended discontinuing Topamax for now as it was subtherapeutic and attributed to her weight loss. [place] to be psych component. Psychiatry will be consulted. Appreciate recommendations. Recommended to follow-up with her primary neurologist at discharge. Anxiety and depression-portably has had ongoing since age 13. Currently not under treatment. Patient became tearful when discussing. She is agreeable to have psych evaluate and make recommendations. Prefer she get styled into resources prior to discharge. Patient agreeable. Resolved Problems: * No resolved hospital problems. * Medication and Non-Pharmacologic VTE Prophylaxis/Anticoagulants 11/09/22 1615 activity - mobilize patient (fl,oh) VTE Prophylaxis: VTE prophylaxis appropriate SIGNATURE: Lore Maradiaga APRN.MANAGEMENT RETAIL INTERN PATIENT NAME: Renee KENT DATE: November 10, 2022 TIME: 4:42 PM [facility] 11-09-2022 Note HNO ID: [id number] Author: Elke Montiel DO Service: Neurology General Author Type: Physician Type: Procedures Filed: 11/10/2022 8:48 PM Note Text: ROUTINE EEG REPORT HISTORY: This is a 22 year old female who is undergoing EEG to evaluate for seizures. REPORT: This EEG was acquired with electrodes placed according to the international 10/20 electrode placement system. The background consisted of a 10 Hz posterior dominant rhythm that attenuates with eye opening. Drowsiness was manifested by background fragmentation, but deeper stages of sleep were not seen. No focal slowing or epileptiform activity was identified. Photic stimulation produced no abnormalities. Recording time was 21 minutes. IMPRESSION: Normal awake and drowsy EEG. CLINICAL CORRELATION: Normal EEGs, however, do not rule out epilepsy. Elke Montiel DO 11/10/2022 8:48 PM [facility] 11-09-2022 Note HNO ID: [id number] Author: Asher Barba RPh Service: ? Author Type: Pharmacist Type: Plan of Care Filed: 11/09/2022 3:23 PM Note Text: PHARMACY MEDICATION REVIEW Patient Name: Renee KENT : 2000 The below information represents the best possible medication history: Yes Medication history completed by: ED Pharmacist Asher Barba RPh Source of history: Patient: Reliability of source: Appears reliable, clearly identified: Medication name, Medication dose, Medication route, Medication frequency, Timing of last dose, and Indications and [facility] records[facility] Medication nonadherence identified: No barriers noted Preferred outpatient pharmacy: [id number] [place] [address] [address] [phone] Allergies: No Known Allergies Prior to Admission Medications Prescriptions Last Dose Informant Patient Reported? Taking? acetaminophen/pamabrom (MIDOL ORAL) 2022 Yes Yes Sig: Take 1 tablet by mouth four times daily as needed (headaches). topiramate (TOPAMAX) 25 mg tablet 2022 No Yes Sig: Take 1 tab at bedtime x1 week and then increase to 2 tabs at bedtime and continue. Patient taking differently: Take 25 mg by mouth daily at bedtime. Facility-Administered Medications: None Asher BarbaJody 11/09/2022 [facility] 11-09-2022 Miscellaneous Notes Pt in [facility] for evaluation at this time. Yeni Carrillo LPN Patient calls and states that she has been having seizures more frequently. Patient was at [facility] this weekend and Left due to having to wait. Patient gone to [place] today and states that they could not do anything for her. Patient in tears because she does not know what to do. Encouraged patient to go to ED and be evaluated. Encouraged patient to wait in ED to be seen and not leave ED due to not wanting to wait. Advised patient that if her seizure are more frequent then she should not be driving on the roads and that she needs to call squad. Patient declined due to not being able to afford squad and afford a ride home. Patient states that she is 10 minutes away from [facility], and that she thinks she can make it there. Advised patient the importance of calling squad to get her to hospital. Ayala Teresa, RN documented in this encounter [facility] 11-04-2022 Miscellaneous Notes TC to pt who is agreeable with going to the ER. Will try to get there as soon as possible but has no one to watch her children. Yeni Carrillo LPN Pt should go to ER for recurrent episodes seizures . If this frequent needs 24 hour EEG monitoring. Recommend patient present to either [facility], [facility] or [facility]. Romelia Triplett MD Patient calling with increase in seizures and numbness she had in her hands for about 3-4 days. States has had about 5 seizures since she last seen you with most of them being this week. Last a few seconds to 1-2 minute. Stated it starts with arms shaking and head hurting. Most recent seizure afterwards noticed that the numbness in hands did disappear. Patient unsure if this is a side effect from the recently prescribed medication. Please advise. documented in this encounter [facility] 10-10-2022 Note HNO ID: [id number] Author: Romelia Triplett Jr., MD Service: ? Author Type: Physician Type: Progress Notes Filed: 10/10/2022 3:16 PM Note Text: NEW PATIENT (CONSULT) HISTORY AND PHYSICAL EXAM PRIMARY CARE PHYSICIAN: Jeannie Downs NP, MANAGEMENT RETAIL INTERN REASON FOR CONSULT: Headache REFERRING PHYSICIAN: Romelia Triplett Jr., MD CHIEF COMPLAINT: Headaches and I have convulsions . Patient accompanied by 2 young children. Consultation requested by Romelia Triplett Jr., MD for an opinion regarding chief complaint of Patient presents with: New Patient and my final recommendations will be communicated back to the requesting physician by way of shared medical record or letter via [place] mail. HISTORY OF PRESENT ILLNESS: Renee KENT is a 21 year old female, BMI 23.91 kg/m2 with a PMH significant for that listed below as well as recent ER visit on 09/18/22 with following complaints: Renee KENT is a 21 year old female who presents to the ED for Multiple complaints. She primarily complains of left lower abdominal pain for the past 3 days it is worsened this morning and feels like a tearing pressure in the left lower abdomen. She reports recent a miscarriage 3 to 4 weeks ago this diagnosed with her TRAIN GATEMAN in [place]. She is G3, P2. She states she is no longer bleeding from the miscarriage. She did trend her quantitative hCG levels which she states went down to 0. She reports painful urination no back pain. She reports loose stool, nonbloody and nausea without vomiting. She also complains of a posterior headache that seems to come suddenly and disappear suddenly and has been ongoing for several months. She states that sometimes it causes her to shake uncontrollably. No associated palpitations or chest pain or neck pain with this. Denies illicit drug use. She states no headache currently but she did have an episode like this earlier today. She also reports left-sided chest pain ongoing for several months as well apparently in the past she has seen cardiology and has been told at some point that she has a little bit of mitral valve prolapse she has had echocardiogram and cardiac testing including Holter monitor in the past. She states that she was told she had a slight episode of V. tach but she is unsure of specifics on this. This was all done at [facility]. She is established with primary care no loss of control or bowel or bladder. She states no head injuries. Previously saw pt in 2017: 1. Loss of consciousness (HCC) - ICD9: 780.09, ICD10: R40.20 (primary diagnosis) Patient reports event of loc approximately 1-2 weeks ago. No warning signs. Etiology uncertain although there may have been cardiac arrhythmia but I cannot find documentation to verify. She is following with cardiology at this time. Also in ddx would be seizure (family history), autonomic dysfunction. However, duration of her being unconscious is atypical for all the above, and thus also need to consider conversion or stress reaction. Non-orthostatic in office today with non-focal neuro exam and cardiac auscultation unremarkable. Recommend following: -EEG to evaluate for seizure activity. -Tilt table to further evaluate for autonomic dysfunction. -Continue cardiology follow up. -If workup unremarkable, may benefit from psychiatry evaluation. She has + SIGECAPS and appears under increased amounts of stress. 2. Intractable headache, unspecified chronicity pattern, unspecified headache type - ICD9: 784.0, ICD10: R51 Patient classifies her headaches as migraine, however, given her numerous symptoms associated with headache need to evaluate for intracranial causes including mass lesion. However, she does have non-focal neuro exam. Component of headache also appears to be of tension nature. Discussed with patient treatment options. While headaches can have associated neuro symptoms, I think it would be atypical for prolonged loss of consciousness unless intracranial stenosis or diffuse vasculitis were the cause of both. Will evaluate as follows: - MRI BRAIN WO IVCON - MRA BRAIN WO IVCON - In addition, will start patient on Topamax as headache preventative. She denies and currently with menses. She does not take OCP. Will start on Topamax 25mg QHS and increase to 50mg QHS in 1 week. SE and ADRs discussed with patient including abnormalities and possible effects on OCP. If she was to become she is to stop medication immediately. 3. Nausea - ICD9: 787.02, ICD10: R11.0 Unclear etiology. Possibly associated with headaches. But other times, nausea without headache. Will get MRI Brain as above. Again, also consider possible autonomic dysfunction. 4. Lightheadedness - ICD9: 780.4, ICD10: R42 As noted above, unclear etiology. Not always associated with headaches. Currently with event monitor to evaluate for arrhythmia. Will proceed with tilt table as above. ? POTS ? Patient s (more content not included)... [facility] documented in this encounter [facility] Summary Purpose Family History No Family History Records FoundNo Family History Records FoundNo Family History Records FoundNo Family History Records FoundNo Family History Records FoundNo Family History Records FoundNo Family History Records FoundNo Family History Records FoundNo Family History Records FoundNo Family History Records Found Advance Directives Latest Code Status on File Code Status Date Activated Date Inactivated Comments Full Code 11/09/2022 4:14 PM Question Answer Comments Full Code Order Discussed With: Patient Latest Code Status on File Code Status Date Activated Date Inactivated Comments Full Code 11/09/2022 4:14 PM 11/11/2022 4:49 PM Question Answer Comments Full Code Order Discussed With: Patient Latest Code Status on File Code Status Date Activated Date Inactivated Comments Full Code 11/09/2022 4:14 PM 11/11/2022 4:49 PM Question Answer Comments Full Code Order Discussed With: Patient Reason for Referral Specialty Diagnoses / Procedures Referred By Shirley delgado Referred To Contact MR IMAGING Diagnoses Chronic intractable headache, unspecified headache type Convulsions, unspecified convulsion type (HCC) Procedures MRI BRAIN WO/W IVCON MRI BRAIN BRAIN STEM W/O W/CONTRAST MATERIAL Romelia Triplett Jr., MD [address] [facility] [address] [place] [address] [place] [id number] Referral ID Status Reason Start Date Expiration Date V isits Requested Visits Authorized [id number] Closed Auto-Generate d Referral 10/29/2022 11/28/2022 1 1 Additional Source Comments INFORMATION SOURCE (unrecogn ized section and content) DATE CREATED AUTHOR AUTHOR'S ORGANIZ ATION 11/02/2017 [facility] DATE CREATED AUTHOR AUTHOR'S ORGANIZ ATION 02/05/2019 [facility] DATE CREATED AUTHOR AUTHOR'S ORGANIZ ATION 02/04/2020 [facility] [place] DATE CREATED AUTHOR AUTHOR'S ORGANIZ ATION 09/25/2020 [facility] ([place]) DATE CREATED AUTHOR AUTHOR'S ORGANIZ ATION 11/07/2022 [facility] DATE CREATED AUTHOR AUTHOR'S ORGANIZ ATION 11/10/2022 [facility] DATE CREATED AUTHOR AUTHOR'S ORGANIZ ATION 11/10/2022 [facility] DATE CREATED AUTHOR AUTHOR'S ORGANIZ ATION 11/11/2022 [facility] DATE CREATED AUTHOR AUTHOR'S ORGANIZ ATION 11/16/2022 [facility] Source Comments (unrecognize d section and content) In the event this informatio n is protected by the Federal Confidentiality of Alcohol and Drug Abuse Patient Records regulations: The Federal rules restrict any use of the information to criminally investigate or prosecute any alcohol or drug abuse patient.[facility] the event this information is protected by the Federal Confidentiality of Alcohol and Drug Abuse Patient Records regulations: The Federal rules restrict any use of the information to criminally investigate or prosecute any alcohol or drug abuse patient.[facility] the event this information is protected by the Federal Confidentiality of Alcohol and Drug Abuse Patient Records regulations: The Federal rules restrict any use of the information to criminally investigate or prosecute any alcohol or drug abuse patient.[facility] the event this information is protected by the Federal Confidentiality of Alcohol and Drug Abuse Patient Records regulations: The Federal rules restrict any use of the information to criminally investigate or prosecute any alcohol or drug abuse patient.[facility] Reason for Visit (unrecogniz ed section and content) Reason Comments Appointment Specialty Diagnoses / Procedures Referred By Shirley delgado Referred To Contact MR IMAGING Diagnoses Chronic intractable headache, unspecified headache type Convulsions, unspecified convulsion type (HCC) Procedures MRI BRAIN WO/W IVCON MRI BRAIN BRAIN STEM W/O W/CONTRAST MATERIAL Romelia Triplett Jr., MD [address] [id number] [place] [id number] Referral ID Status Reason Start Date Expiration Date V isits Requested Visits Authorized [id number] Closed Auto-Generate d Referral 10/29/2022 11/28/2022 1 1 Care Teams (unrecognized sec tion and content) Controls Designer Relationship Specialty Start Date End Date Jeannie Downs CNP [address] [facility] [address] PCP - General Family Medicine 10/18/21 Controls Designer Relationship Specialty Start Date End Date Jeannie DownsSUSAN [address] [facility] [address] [facility] [place] [address] PCP - General Family Medicine 10/18/21 Controls Designer Relationship Specialty Start Date End Date Jeannie Downs SUSAN [address] [facility] [place] [address] PCP - General Family Medicine 10/18/21 FOR RECORDS PERTAINING TO PATIENTS WHO ARE OR HAVE BEEN ENROLLED IN A CHEMICAL DEPENDENCY/SUBSTANCEABUSE PROGRAM, SOME INFORMATION MAY BE OMITTED. This clinical summary was aggregated from multiple sources. Caution should be exercised in using it in the provision of clinical care. This summary normalizes information from multiple sources, and as a consequence, information in this document may materially change the coding, format and clinical context of patient data. In addition, data may be omitted in some cases. CLINICAL DECISIONS SHOULD BE BASED ON THE PRIMARY CLINICAL RECORDS. [facility] [employer] [facility]. provides no warranty or guarantee of the accuracy or completeness of information in this document.
== END | disposition home or self-care (01) ==
PROVIDERS: Referring Provider Advanced Practice Midwife; Visit Provider Advanced Practice Midwife
DX: N92.6 Irregular menstruation, unspecified (principal)
CPT/HCPCS: 36415; 84702

== ENCOUNTER → 2023-08-28 | Outpatient (CLI) | payer MEDICAID, SELFPAY | END | disposition home or self-care (01) | LOC: LABSPEC 16:09 | PROVIDERS: Referring Provider Advanced Practice Midwife; Visit Provider Advanced Practice Midwife | DX: N89.8 Other specified noninflammatory disorders of vagina (principal) | CPT/HCPCS: 87070; 87205 ==

== ENCOUNTER → 2024-01-23 | Outpatient (CLI) | payer MEDICAID, SELFPAY ==
[2024-01-30 16:44] LABS: HPV Reflexed? NOT INDICATED
== END | disposition home or self-care (01) ==
LOC: LABSPEC 16:50
PROVIDERS: Referring Provider Nurse Practitioner Women's Health; Visit Provider Nurse Practitioner Women's Health
DX: Z12.4 Encounter for screening for malignant neoplasm of cervix (principal)
CPT/HCPCS: 88175; G0145

== ENCOUNTER → 2024-02-01 | Outpatient (CLI) | payer MEDICAID, SELFPAY ==
[2024-02-01 11:29] LABS: Absolute Lymphocyte Count 2.25 X10^3/uL (0.83-4.51); Absolute Neutrophil Count 4.3 X10^3/uL (2.0-7.7); Basophil# 0.04 X10^3/uL; Basophil% 0.6 % (0-1); Eosinophils% 2.8 % (0-5); Hematocrit 37.1 % (37-47); Lymphocyte # 2.25 X10^3/ul (0.83-4.51); Lymphocyte % 31.2 % (19-41); Mean Corp Hgb Conc 32.3 g/dL (32-36); Mean Corpuscular Hgb 29.2 pg (27.0-32.0); Mean Corpuscular Volume 90.3 fL (81-99); Mean Platelet Vol. 10.3 fl (6.2-12.0); Monocyte% 5.5 % (0-10); NRBC Flagged by Analyzer 0 % (0-5); Neutrophil % 59.6 % (47-70); Platelet Count 273 K/mm3 (150-450); RBC Distribution Width CV 12.2 % (11.6-14.6); Red Blood Count 4.11 M/mm3 (4.2-5.4); White Blood Count 7.2 K/mm3 (4.4-11.0)
[2024-02-01 12:26] LABS: Anion Gap 4 (5-15); BUN 11 mg/dL (7-18); BUN/Creat Ratio 13.1 RATIO (10-20); Calcium,Total 9.5 mg/dL (8.5-10.1); Chloride 107 mmol/L (98-107); Creatinine, Serum 0.84 mg/dL (0.55-1.02); EST Glomerular Filtration Rate 88 mL/min (>60); Est Glom Filt Rate - Afr Amer 106 mL/min (>60); Glucose 80 mg/dL (74-106); Magnesium 2.2 mg/dL (1.6-2.6); Potassium 3.9 mmol/L (3.5-5.1); Sodium Level 140 mmol/L (136-145)
== END | disposition home or self-care (01) ==
LOC: LAB 10:49
PROVIDERS: Referring Provider Physician Assistant Medical; Visit Provider Physician Assistant Medical
DX: I49.3 Ventricular premature depolarization (principal); I47.20 Ventricular tachycardia, unspecified; R00.2 Palpitations; R06.02 Shortness of breath; R07.9 Chest pain, unspecified
CPT/HCPCS: 36415; 80048; 83735; 84443; 85025

== ENCOUNTER 2024-03-02 00:34 | Emergency (ER) | payer MEDICAID, SELFPAY ==
[2024-03-02 00:34] VITALS: BP 118/69; PULSE 63; RESP 18; TEMP 36.6; O2SAT 100; BMI 23.3
--- NOTE | 2024-03-02 02:01 | ED.VIS.GI ---
HPI HPI - GI History of Present Illness Chief Complaint: Abd Pain Informant: patient Abdominal Pain/Flank Pain Onset: Yesterday Context: Sudden Onset Timing: Intermittent and Lasts (2 to 3 days) Quality: Burning and - (Throbbing) Location: Epigastric and RUQ Worsened by: Movement Relieved by: Nothing Nausea/Vomiting/Emesis GI Symptom: Negative for Nausea or Vomiting Diarrhea/Melena/Hematochezia GI Symptom: Negative for Diarrhea, Melena or Hematochezia Associated Symptoms Associated Symptoms: Negative for Dysuria, Frequency or Urgency LMP: 1 to 2 weeks ago Narrative Narrative: Patient presents with abdominal pain that began yesterday. Patient states it came on rather suddenly. Patient states that she has had similar symptoms in the past. Patient states that they are intermittent. Patient states the pain last for couple days when it comes on. Patient describes it as burning and throbbing. Patient states it feels as though she has a ball in her abdomen that will get bigger and smaller at times. Patient states it is mainly over her epigastric and right upper abdomen. Patient states that it is worse with certain movements. Patient states nothing seems to help with it. Patient denies any nausea or vomiting. Patient denies any diarrhea, melena, or hematochezia. Patient denies any urinary complaints. Patient also admits to daily marijuana use. Prior similar symptoms: Yes PFSH PFSH Medical History Vaginal delivery Non-rheumatic mitral regurgitation Nonrheumatic mitral (valve) prolapse ASCUS of cervix with negative high risk HPV Atony of uterus without hemorrhage depression Depression Anxiety Abnormal glucose affecting NSVT (nonsustained ventricular tachycardia) Ventricular ectopy Arrhythmia Premature ventricular contraction Premature atrial contraction History of oligohydramnios UTI (urinary tract infection), affecting care of mother, antepartum Marijuana abuse Heart palpitations Supervision of normal first Home Medications ?Medication ?Instructions ?Recorded ?Last Taken ?Type ondansetron 4 mg disintegrating 4 mg PO Q6H PRN nausea and 08/28/23 Unknown Rx tablet vomiting #14 tabs dicyclomine 10 mg capsule 10 mg PO BID PRN abdominal pain 02/27/24 Unknown History pantoprazole 40 mg tablet,delayed 40 mg PO QDAY PRN GERD 02/27/24 Unknown History release Allergy/AdvReac Type Severity Reaction Status Date / Time No Known Allergies Allergy Verified 03/02/24 00:34 Family History Brother CVA (cerebral vascular accident) Grandfather Cardiac pacemaker in situ Other Melanoma Surgical History no surgical history no surgical history Social History Smoking Status: Current some day smoker tobacco type: smokeless tobacco alcohol intake: current alcohol intake frequency: holidays/special occasions only substance use type: marijuana caffeine: Yes Type: coffee Number of servings: 3 what type of physical activity do you participate in: walking frequency: 3-4 times per week seatbelt use: always do you feel safe at home: Yes additional social history: Boyfriend-Jackson ROS ROS ED Constitutional Constitutional ED: Denies chills or fever(s) Eyes Eyes: Denies blurry vision or change in vision ENT ENT ED: Denies rhinorrhea or sore throat Cardiovascular Cardiovascular: Reports chest pain; Denies palpitations Respiratory/Chest Respiratory/Chest: Reports dyspnea; Denies cough Gastrointestinal Gastrointestinal: Reports abdominal pain; Denies diarrhea, melena, nausea or vomiting Genitourinary Genitourinary ED: Denies dysuria or hematuria Musculoskeletal Musculoskeletal: Reports neck pain; Denies back pain Integumentary Denies abscess or rash Neurologic Neurologic: Reports headache(s); Denies weakness Allergic/Immunologic Allergic/Immunologic ED: Denies mouth swelling or urticaria EXAM Physical Exam Const Vital Signs: 03/02/24 00:34 03/02/24 02:34 Temperature 98 F Temperature Source Oral Pulse Rate 63 88 Respiratory Rate 18 16 Blood Pressure 118/69 113/68 Blood Pressure Mean 85 83 Pulse Ox 100 98 Oxygen Delivery Method Room Air Room Air Positive well nourished and well developed General Appearance ED: well developed HEENT Reports moist mucous membranes Neck supple and no JVD Resp normal respiratory effort and clear to auscultation bilaterally Cardio regular rate and regular rhythm GI non-distended Palpation: soft and tender epigastric and RUQ; Negative for guarding or rebound tenderness present Extremity full ROM General Extremety ED: Negative for edema or tenderness General Extremity: Negative for edema Neuro CN's II-XII intact bilaterally, moves all extremities and no sensory deficits noted Sensorium / Orientation: alert, oriented to person, oriented to place and oriented to time Motor Exam: strength 5/5 throughout Psych mental status grossly normal MDM MDM MDM Narrative Medical decision making narrative: Differential diagnosis includes gastritis, peptic ulcer disease, duodenal ulcer, cholecystitis, cholelithiasis, pancreatitis, , and pyelonephritis. CBC will be obtained to assess for leukocytosis and anemia. Comprehensive metabolic profile will be obtained to assess for hepatic function, renal function, and electrolyte abnormality. Lipase will be obtained to assess for pancreatitis. Serum hCG will be obtained to assess for . Urinalysis will be obtained to assess for urinary tract infection. Lab Data Attestation: I reviewed the patient's lab results. Lab results narrative: CBC was reviewed. There is a slight anemia with a hemoglobin of 11.3 and hematocrit of 33.3. Comprehensive metabolic profile was reviewed and was within normal limits. Lipase was reviewed and was normal at 66. Serum hCG was reviewed and was negative. Urinalysis was reviewed. There is no evidence of urinary tract infection. Occult blood was 25 with 5-10 red blood cells. Labs: Laboratory Results - last 24 hr 03/02/24 03/02/24 02:20 02:45 WBC 6.7 RBC 3.71 L Hgb 11.3 L Hct 33.3 L MCV 89.8 MCH 30.5 MCHC 33.9 RDW Std Deviation 40.8 RDW Coeff of Rebecca 12.3 Plt Count 255 MPV 9.6 Immature Gran % (Auto) 0.100 Neut % (Auto) 50.4 Lymph % (Auto) 37.7 Brule % (Auto) 7.6 Eos % (Auto) 3.9 Baso % (Auto) 0.3 Absolute Neuts (auto) 3.4 Absolute Lymphs (auto) 2.54 Nucleated RBC % 0 Sodium 140 Potassium 3.8 Chloride 108 H Carbon Dioxide 29.0 Anion Gap 3 L BUN 16 Creatinine 0.80 Estim Creat Clear Calc 88.93 Est GFR (MDRD) Af Amer 112 Est GFR (MDRD) Non-Af 93 BUN/Creatinine Ratio 20.1 H Glucose 103 Calcium 9.2 Total Bilirubin 0.40 AST 17 ALT 34 Alkaline Phosphatase 34 L Total Protein 7.0 Albumin 3.8 Globulin 3.2 Albumin/Globulin Ratio 1.2 Lipase 66 Serum , Qual NEGATIVE Urine Color Yellow Urine Clarity Sl. Cloudy Urine pH 6.5 Ur Specific [place] 1.020 Urine Protein 30 H Urine Glucose (UA) Normal Urine Ketones Negative Urine Occult Blood 25 H Urine Nitrite Negative Urine Bilirubin Negative Urine Urobilinogen Normal Ur Leukocyte Esterase Negative Urine RBC 5-10 SEEN Urine WBC 0 SEEN Ur Squamous Epith Cells 0-5 SEEN Urine Bacteria 1+ Urine Mucus 0 SEEN Treatment and Re-Evaluation :: Patient was advised that this could be related marijuana use. Patient was advised to stop using marijuana. Patient was advised of her findings. Patient was instructed to drink plenty of fluids. Patient was instructed to follow-up with her primary care physician in 5 to 7 days. Patient was instructed return if worse in any way. Patient understood and was agreeable with the plan. All questions were answered. Discharge Plan Triage Chief Complaint: Abd Pain ED Provider: Nirav Gerber Dx/Rx/DC Orders Clinical Impression: Abdominal pain, Marijuana use Instructions: ED Abdominal Pain Unkn Cause Fem Prescriptions: No Action ondansetron 4 mg tablet,disintegrating 4 mg PO Q6H PRN (Reason: nausea and vomiting) Qty: 14 0RF dicyclomine 10 mg capsule 10 mg PO BID PRN (Reason: abdominal pain) pantoprazole 40 mg tablet,delayed release (DR/EC) 40 mg PO QDAY PRN (Reason: GERD) Primary Care Provider: RODNEY VILLAREAL Referrals: RODNEY VILLAREAL [Other] - 3-5 Days Print Language: Luxembourgish Disposition Disposition: Home, Self Care
[2024-03-02 02:25] LABS: Absolute Lymphocyte Count 2.54 X10^3/uL (0.83-4.51); Absolute Neutrophil Count 3.4 X10^3/uL (2.0-7.7); Basophil# 0.02 X10^3/uL; Basophil% 0.3 % (0-1); Eosinophil# 0.26 X10^3/uL; Eosinophils% 3.9 % (0-5); Hematocrit 33.3 % (37-47); Hemoglobin 11.3 g/dL (12.0-15.0); Lymphocyte # 2.54 X10^3/ul (0.83-4.51); Lymphocyte % 37.7 % (19-41); Mean Corp Hgb Conc 33.9 g/dL (32-36); Mean Corpuscular Hgb 30.5 pg (27.0-32.0); Mean Corpuscular Volume 89.8 fL (81-99); Mean Platelet Vol. 9.6 fl (6.2-12.0); Monocyte# 0.51 X10^3/uL; Monocyte% 7.6 % (0-10); NRBC Flagged by Analyzer 0 % (0-5); Neutrophil # 3.39 X10^3/uL (2.7-7.7); Neutrophil % 50.4 % (47-70); Platelet Count 255 K/mm3 (150-450); RBC Distribution Width CV 12.3 % (11.6-14.6); RBC Distribution Width SD 40.8 fl (35.1-43.9); Red Blood Count 3.71 M/mm3 (4.2-5.4); White Blood Count 6.7 K/mm3 (4.4-11.0)
[2024-03-02 02:34] VITALS: BP 113/68; PULSE 88; RESP 16; O2SAT 98
[2024-03-02 02:35] LABS: Internal QC Validated? YES +Cl - CLEAR BKGD; Pregnancy, Serum, hCG Quali. NEGATIVE Negative
[2024-03-02 02:43] LABS: ALB/GLOB Ratio 1.2 RATIO (0.9-2.4); AST(SGOT) 17 U/L (15-37); Alanine Aminotransfer ALT/SGPT 34 U/L (13-56); Albumin, Serum 3.8 g/dL (3.2-5.0); Alkaline Phosphatase 34 U/L (45-117); Anion Gap 3 (5-15); BUN 16 mg/dL (7-18); BUN/Creat Ratio 20.1 RATIO (10-20); Calcium,Total 9.2 mg/dL (8.5-10.1); Chloride 108 mmol/L (98-107); EST Glomerular Filtration Rate 93 mL/min (>60); Est Glom Filt Rate - Afr Amer 112 mL/min (>60); Estimated Creatinine Clearance 88.93 ml/min; Globulin 3.2 g/dL (2.2-4.2); Glucose 103 mg/dL (74-106); Lipase 66 U/L (13-75); Potassium 3.8 mmol/L (3.5-5.1); Sodium Level 140 mmol/L (136-145)
[2024-03-02 02:51] LABS: Mucous, Urine 0 SEEN /hpf (<or=2+); White Blood Cells 0 SEEN /hpf (0-5)
[2024-03-02 02:52] LABS: Color, Urine Yellow (Yellow); Glucose, Dipstick Normal (Normal); Ketone-Dipstick Negative (Negative); Leukocyte Esterase-Dipstick Negative /ul (Negative); Nitrite-Dipstick Negative (Negative); Occult Blood-Urine 25 /ul (Negative); Protein-Dipstick 30 mg/dl (Negative); Urine Bilirubin Dipstick Negative (Negative); Urine Clarity Sl. Cloudy (Clear); Urine Urobilinogen Normal (Normal); Urine pH 6.5 (5.0 - 8.0)
[2024-03-02 02:59] LABS: Bacteria 1+ /hpf (None Seen); Red Blood Cells-Urine 5-10 SEEN /hpf (0-5); Squamous Epithelial Cells - UA 0-5 SEEN /hpf (5-10)
== END 2024-03-02 03:46 | disposition home or self-care (01) ==
PROVIDERS: Emergency Provider Emergency Medicine; Visit Provider Emergency Medicine
DX: R10.13 Epigastric pain (principal); R10.11 Right upper quadrant pain; F12.90 Cannabis use, unspecified, uncomplicated; D64.9 Anemia, unspecified; F17.290 Nicotine dependence, other tobacco product, uncomplicated; Z87.440 Personal history of urinary (tract) infections
CPT/HCPCS: 80053; 81001; 83690; 84703; 85025; 99283; A4216

== ENCOUNTER → 2024-09-05 | Outpatient (CLI) | payer MEDICAID, SELFPAY ==
--- NOTE | 2024-09-05 09:56 | US_ITS ---
PROCEDURE: TRANSVAGINAL NON- 09/05/2024 REASON FOR EXAM: PELVIC PAIN TECHNIQUE: Transvaginal pelvic ultrasound FINDINGS: Transvaginal imaging The uterus measures 7.6 x 6.3 x 4.5 cm and appears within limits. 5 mm endometrial stripe with some trace fluid suggested at the fundal portion. Cervix appears within limits. The right ovary measures 3.8 x 2.3 x 2.2 cm. The left ovary measures 4.6 x 2.6 x 2.7 cm. The ovaries are slightly prominent and contain small follicles. Bilateral ovarian vascular flow is seen. No evidence of adnexal mass. [id number] amount of adnexal and pelvic free fluid. US/Transvaginal Non- IMPRESSION: 5 mm endometrial stripe with some trace fluid suggested at the fundal portion. [id number] amount of adnexal and pelvic free fluid. Reading Location: [id number]
== END | disposition home or self-care (01) ==
LOC: US 09:53
PROVIDERS: Referring Provider Nurse Practitioner Women's Health; Visit Provider Nurse Practitioner Women's Health
DX: N83.209 Unspecified ovarian cyst, unspecified side (principal); R10.2 Pelvic and perineal pain
CPT/HCPCS: 76830